=== PATIENT | male | born 1945 | race Caucasian/White ===

== ENCOUNTER 2022-12-09 15:00 | Outpatient (RCR) | payer MEDICARE, OTHER, SELFPAY ==
[2022-11-25 09:18] VITALS: BP 135/77; PULSE 69; RESP 16; TEMP 36.2; O2SAT 96
--- NOTE | 2022-11-25 09:35 | PC.NURSE ---
0918: Pt. to [facility] amb. per self. Weight obtained, called to pharmacy. Pt. seated in recliner. VSS. Denies c/o pain, n/v or dyspnea. #22 gauge IV initiated to right forearm on first attempt without difficulty. Flushes easily without redness or edema. Pt. tolerated without c/o.
--- NOTE | 2022-11-25 10:21 | PC.NURSE ---
0948: IV Prolastin initiated at this time. Pt. without c/o or needs. 1015: Prolastin infusion complete wihthout s&s of adverse reaction. IV d/c'd, pressure to site. 1018: Pt. d/c'd amb. to home.
[2022-12-02 14:53] VITALS: BP 128/76; PULSE 68; RESP 18; TEMP 36.1; O2SAT 96
--- NOTE | 2022-12-02 15:09 | PC.NURSE ---
Patient is here for Prolastin infusion, he is tolerating this well. He denies any issues or concerns.
[2022-12-09 14:30] VITALS: BP 122/68; PULSE 66; RESP 20; TEMP 36.6; O2SAT 93
--- NOTE | 2022-12-09 15:19 | PC.NURSE ---
1430: Pt. to [facility] amb. per self. Weight obtained, called to pharmacy. Seated in recliner. VSS. #22 guage IV initiated to right hand on first attempt without difficulty. Flushes easily. Pt. tolerates without c/o. 1444: IV Prolastin infusion initiated at this time. Pt. denies needs. 1507: Infusion complete. Pt. without s&s of adverse reaction. IV d/c'd, pressure to site. Pt. denies c/o. 1509: Pt. d/c'd amb to home.
== END 2022-12-11 23:59 | disposition home or self-care (01) ==
LOC: INF 15:00
PROVIDERS: Visit Provider Internal Medicine
DX: J43.8 Other emphysema (principal); E88.01 Alpha-1-antitrypsin deficiency
CPT/HCPCS: 96365; J0256

== ENCOUNTER 2023-01-06 15:00 | Outpatient (RCR) | payer MEDICARE, OTHER, SELFPAY ==
[2022-12-16 14:40] VITALS: BP 127/72; PULSE 68; RESP 18; TEMP 36.6; O2SAT 97
[2022-12-23 14:48] VITALS: BP 123/77; PULSE 71; RESP 20; TEMP 36.3; O2SAT 96
--- NOTE | 2022-12-23 15:58 | PC.NURSE ---
1448: Pt. to [facility] amb. per self. Weight obtained, called to pharmacy. Seated in recliner. VSS. IV initiated without difficulty to right arm without difficulty. Flushes easily without redness or edema. Pt. denies c/o. Medicated with IV Prolastin infusion as ordered. 1549: Prolastin infusion completed without s&s of adverse reaction IV d/c'd, pressure to site. 1550: Pt. d/c'd to home amb.
[2022-12-30 14:55] VITALS: BP 124/72; PULSE 63; RESP 18; TEMP 36.6; O2SAT 96
--- NOTE | 2022-12-30 15:25 | PC.NURSE ---
1455: Pt. to [facility] amb. per self. Wt. obtained, called to pharmacy. Seated in recliner. VSS. Denies c/o. #22 gauge IV initiated to left hand on first attempt without difficulty. Flushes easily. No redness or edema. Pt. tolerated without c/o.
--- NOTE | 2022-12-30 15:29 | PC.NURSE ---
1513: IV Prolastin initiated at this time. Pt. denies needs or c/o.
[2023-01-06 14:43] VITALS: BP 147/75; PULSE 70; RESP 20; TEMP 36.8; O2SAT 93
== END 2023-01-11 23:59 | disposition home or self-care (01) ==
LOC: INF 15:00
PROVIDERS: Visit Provider Internal Medicine
DX: E88.01 Alpha-1-antitrypsin deficiency (principal); J43.8 Other emphysema
CPT/HCPCS: 96365; 96366; J0256

== ENCOUNTER 2023-02-10 15:00 | Outpatient (RCR) | payer MEDICARE, OTHER, SELFPAY ==
[2023-01-13 14:43] VITALS: BP 158/77; PULSE 76; RESP 18; TEMP 36.2; O2SAT 95
--- NOTE | 2023-01-13 14:58 | PC.NURSE ---
Pt. to [facility] amb. per self. Wt. obtained. Called to pharmacy. VSS. IV initiated without difficulty. Tolerated w/o c/o.
--- NOTE | 2023-01-13 15:05 | PC.NURSE ---
IV Prolastin initiated at this time. Pt. denies needs.
--- NOTE | 2023-01-13 15:29 | PC.NURSE ---
Prolastin completed at this time. IV d/c'd pressure to site. Pt. without s&s of adverse reaction. D/c'd to home amb.
[2023-01-20 14:45] VITALS: BP 158/75; PULSE 67; RESP 18; TEMP 36.4; O2SAT 94
--- NOTE | 2023-01-20 14:45 | PC.NURSE ---
1445: Pt. to [facility] amb. per self. Weight obtained, called to pharmacy. Seated in recliner. VSS. #22 gauge IV initiated to right forearm on first attempt. Flushes easily. Pt. denies c/o. IV Prolastin initiated at this time. 1531: Prolastin infusion completed at this time. Pt. without s&s of adverse reaction. IV d/c'd, pressure to site. D/c'd amb. to home.
[2023-01-27 13:50] VITALS: BP 100/60; PULSE 54; RESP 18; TEMP 36.4; O2SAT 100
--- NOTE | 2023-01-27 14:21 | PC.NURSE ---
1350 Ate 100% of meal, tolerating prbc's without difficulty. Family remain with patient
[2023-01-27 15:15] VITALS: BP 126/70; PULSE 68; RESP 16; TEMP 36.4; O2SAT 96
--- NOTE | 2023-01-27 15:17 | PC.NURSE ---
Arrived ambulatory to chair 1. alert oriented offers no concerns vs obtained #24 iv initiated rt wrist, tolerated. we.. 1515 iv infusion initiated.
--- NOTE | 2023-01-27 15:44 | PC.NURSE ---
1545 infusion completed flushed line with 20 ml of nss. iv site dc'd catheter intact. Released ambulatory.
[2023-02-03 14:40] VITALS: BP 154/81; PULSE 73; RESP 18; TEMP 36.4; O2SAT 94
[2023-02-10 14:46] VITALS: BP 150/76; PULSE 72; RESP 18; TEMP 37; O2SAT 93
== END 2023-02-11 23:59 | disposition home or self-care (01) ==
LOC: INF 15:00
PROVIDERS: Visit Provider Internal Medicine
DX: J43.8 Other emphysema (principal); E88.01 Alpha-1-antitrypsin deficiency
CPT/HCPCS: 96365; J0256

== ENCOUNTER 2023-03-10 07:30 | Outpatient (RCR) | payer MEDICARE, OTHER, SELFPAY ==
[2023-02-17 14:44] VITALS: BP 151/93; PULSE 69; RESP 18; TEMP 36.5; O2SAT 95
--- NOTE | 2023-02-17 15:22 | PC.NURSE ---
Patient is receiving Prolastin infusion and tolerating well. He denies any complaints.
--- NOTE | 2023-02-17 15:33 | PC.NURSE ---
Patient completed infusion, IV was discontinued and he was discharged home.
[2023-02-24 14:56] VITALS: BP 124/76; PULSE 66; RESP 16; TEMP 36.4; O2SAT 96
--- NOTE | 2023-02-24 15:35 | PC.NURSE ---
1535: IV Prolastin complete. Pt. without s&s of adverse reaction. IV d/c'd, pressure to site. Pt. tolerated without c/o.
--- NOTE | 2023-02-24 16:13 | PC.NURSE ---
1535 infusion complete. IV site dc'd, catheter intact. bandaid applied. Released ambulatory
[2023-03-03 14:45] VITALS: BP 139/80; PULSE 71; RESP 16; TEMP 36.2; O2SAT 94
--- NOTE | 2023-03-03 14:45 | PC.NURSE ---
1445: Pt. to [facility] amb. per self. Weight obtained, called to pharmacy. Seated in recliner. VSS. #22 gauge IV initiated to right forearm on first attempt without difficulty. Flushes easily without redness or edema. Pt. tolerated without c/o. Declines snack or fluids.
--- NOTE | 2023-03-03 15:02 | PC.NURSE ---
1502: IV Prolastin initiated at this time.
--- NOTE | 2023-03-03 15:39 | PC.NURSE ---
1537: IV Prolastin infused without s&s of adverse reaction IV d/c'd, pressure to site. 1539: Pt. d/c'd amb. to home.
[2023-03-10 01:30] VITALS: BP 148/80; PULSE 62; RESP 16; TEMP 36.4; O2SAT 96
== END 2023-03-13 23:59 | disposition home or self-care (01) ==
LOC: INF 07:30
PROVIDERS: Visit Provider Internal Medicine
DX: E88.01 Alpha-1-antitrypsin deficiency (principal); J43.8 Other emphysema
CPT/HCPCS: 96365; J0256

== ENCOUNTER 2023-04-07 07:31 | Outpatient (RCR) | payer MEDICARE, OTHER, SELFPAY ==
[2023-03-17 15:38] VITALS: BP 135/77; PULSE 69; RESP 18; TEMP 36.3; O2SAT 92
--- NOTE | 2023-03-17 15:50 | PC.NURSE ---
1443: Pt. to [facility] amb. per self. Weight obtained, called to pharmacy. Seated in recliner. VSS. Denies c/o. IV initiated on second attempt, pt. tolerated with no c/o. Declines snack or fluids. 1505: IV Prolastin initiated at this time. 1535: Prolastin completed without adverse reaction. IV d/c'd, pressure to site. 1538: Pt. d/c'd amb. to home.
[2023-03-24 14:36] VITALS: BP 137/79; PULSE 70; RESP 18; TEMP 36.4; O2SAT 95
[2023-03-24] MEDS: PROTEINASE INHIBITOR IV (15:06)
[2023-03-24] MEDS: ALPHA IV (15:06)
--- NOTE | 2023-03-24 15:40 | PC.NURSE ---
Patient tolerated infusion well. No reactions. Ambulatory on discharge.
[2023-03-31 14:47] VITALS: BP 144/79; PULSE 80; RESP 18; TEMP 36.4; O2SAT 98
--- NOTE | 2023-03-31 15:28 | PC.NURSE ---
1447: Pt. to [facility] amb. per self. Weight obtained, called to pharmacy. Pt. seated in recliner. VSS. IV initiated, pt. tolerated without c/o. IV Prolastin initiated at this time. Denies needs.
--- NOTE | 2023-03-31 15:40 | PC.NURSE ---
1540: Prolastin infused without s&s of adverse reaction. IV d/c'd, pressure to site. Pt. d/c'd amb. to home.
[2023-04-07 15:49] VITALS: BP 161/84; PULSE 69; RESP 16; TEMP 36.4; O2SAT 94
--- NOTE | 2023-04-07 15:52 | PC.NURSE ---
1453: Pt. to [facility] amb. for weekly infusion. Weight obtained, called to pharmacy. Seated in recliner. VSS. Iv initiated to left wrist on first attempt without difficulty. Flushes easily without redness or edema. Pt tolerates with no c/o. IV Prolastin initiated at this time. Pt. denies needs or c/o. 1547: IV Prolastin completed at this time. IV d/c'd, pressure to site. 1548: Pt. d/c'd amb. to home.
== END 2023-04-13 23:59 | disposition home or self-care (01) ==
LOC: INF 07:31
PROVIDERS: Visit Provider Internal Medicine
DX: J43.8 Other emphysema (principal); E88.01 Alpha-1-antitrypsin deficiency
CPT/HCPCS: 96365; J0256

== ENCOUNTER 2023-05-12 07:31 | Outpatient (RCR) | payer MEDICARE, OTHER, SELFPAY ==
[2023-04-14 14:45] VITALS: BP 144/79; PULSE 67; RESP 16; TEMP 36.1; O2SAT 95
--- NOTE | 2023-04-14 16:01 | PC.NURSE ---
1445: Pt to [facility] amb. per self. Weight obtained. Seated in recliner. VSS. IV initiated to left arm on first attempt without difficulty. Pt. tolerated without c/o. Denies needs or c/o. 1508: IV Prolastin initiated as ordered. Denies needs. 1538: IV Prolastin complete without s&s of adverse reaction. IV d/c'd, pressure to site. Pt. d/c'd amb to home.
[2023-04-21 14:43] VITALS: BP 140/83; PULSE 66; RESP 16; TEMP 36.6; O2SAT 96
[2023-04-21] MEDS: PROTEINASE INHIBITOR IV (14:45)
[2023-04-21] MEDS: ALPHA IV (14:45)
--- NOTE | 2023-04-21 14:49 | PC.NURSE ---
1430: Pt. to [facility] amb. Weight obtained. Seated in recliner. VSS. Denies c/o. #22 gauge IV initiated to right forearm on first attempt without difficulty. Flushes easily without redness or edema/ Pt. tolerates without c/o. 1445: IV Prolastin initiated as ordered. Pt. denies needs.
--- NOTE | 2023-04-21 15:24 | PC.NURSE ---
1520: Prolastin complete. Pt. without s&s of adverse reaction. IV d/c'd, pressure to site. Pt. d/c'd amb. to home.
[2023-04-28 14:58] VITALS: BP 148/84; PULSE 81; RESP 18; TEMP 36.6; O2SAT 96
[2023-04-28] MEDS: ALPHA IV (15:17)
[2023-04-28] MEDS: PROTEINASE INHIBITOR IV (15:17)
[2023-05-05 12:45] VITALS: BP 136/67; PULSE 59; RESP 16; TEMP 36.6; O2SAT 97
--- NOTE | 2023-05-05 14:26 | PC.NURSE ---
1340 iv infusion completed, iv dc'd catheter intact, raquel and armaan applied. Released ambulatory
[2023-05-12 14:40] VITALS: BP 151/78; PULSE 67; RESP 18; TEMP 36.4; O2SAT 99
== END 2023-05-13 23:59 | disposition home or self-care (01) ==
LOC: INF 07:31
PROVIDERS: Visit Provider Internal Medicine
DX: J43.8 Other emphysema (principal); E88.01 Alpha-1-antitrypsin deficiency
CPT/HCPCS: 96365; J0256

== ENCOUNTER 2023-06-09 07:42 | Outpatient (RCR) | payer MEDICARE, OTHER, SELFPAY ==
[2023-05-19 14:40] VITALS: BP 151/79; PULSE 68; RESP 18; TEMP 35.9; O2SAT 95
--- NOTE | 2023-05-19 14:42 | PC.NURSE ---
1410: Pt. to [facility] amb. for weekly infusion. Weight obtained, called to pharmacy. Seated in recliner. #24 gauge IV inserted to left forearm per this RN without difficulty. Flushes easily without edema or pt. c/o pain. 1426: IV Prolastin initiated at this time. Pt. denies needs or c/o.
--- NOTE | 2023-05-19 14:57 | PC.NURSE ---
1456: IV Prolastin completed. Pt. without c/o. IV d/c'd, pressure to site. 1458: Pt. d/c'd amb. to home.
[2023-05-26 14:23] VITALS: BP 132/55; PULSE 74; RESP 18; TEMP 36.3; O2SAT 93
[2023-06-02 13:10] VITALS: BP 161/85; PULSE 73; RESP 18; TEMP 36.8; O2SAT 94
[2023-06-09 13:50] VITALS: BP 129/74; PULSE 61; RESP 18; TEMP 36.4; O2SAT 95
== END 2023-06-09 14:46 | disposition home or self-care (01) ==
LOC: INF 07:42
PROVIDERS: Visit Provider Internal Medicine
DX: J43.8 Other emphysema (principal); E88.01 Alpha-1-antitrypsin deficiency
CPT/HCPCS: 96365; J0256

== ENCOUNTER 2023-07-14 07:27 | Outpatient (RCR) | payer MEDICARE, OTHER, SELFPAY ==
[2023-06-16 14:32] VITALS: BP 151/81; PULSE 65; RESP 18; TEMP 36.6; O2SAT 98
--- NOTE | 2023-06-16 14:35 | PC.NURSE ---
8810 Arrival ambulatory to chair 2. alert oriented. offers no complaints. #24 IV catheter inserted leforearm on 1st attempt, tolerated well.
[2023-06-23 14:22] VITALS: BP 153/85; PULSE 78; RESP 16; TEMP 36; O2SAT 96
--- NOTE | 2023-06-23 14:23 | PC.NURSE ---
1415: Pt. to [facility] amb for weekly infusion. Weight obtained, called to pharmacy. Seated in recliner. VSS. #22 gauge IV initiated to left forearm on first attempt without difficulty. Flushes easily without redness or edema. Declines snack or water.
--- NOTE | 2023-06-23 14:36 | PC.NURSE ---
1428: IV Prolastin initiated at this time.
--- NOTE | 2023-06-23 15:05 | PC.NURSE ---
1502: Prolastin infusion completed. Pt. tolerated without c/o. IV d/c'd pressure too site. Pt. tolerated without c/o.Pt. d/c'd amb. to home.
[2023-06-30 13:51] VITALS: BP 156/83; PULSE 64; RESP 16; TEMP 36.6; O2SAT 96
--- NOTE | 2023-06-30 13:53 | PC.NURSE ---
1345: Pt. to [facility] amb for weekly infusion. Weight obtained. VSS. #22 gauge IV initiated to right ac on second attempt. Flushes easily without redness or edema. Denies c/o pain, n/v or dyspnea.
[2023-06-30] MEDS: PROTEINASE INHIBITOR IV (13:56)
[2023-06-30] MEDS: ALPHA IV (13:56)
--- NOTE | 2023-06-30 14:26 | PC.NURSE ---
1425: IV Prolastin completed. Pt. without s&s of adverse reaction. IV d/c'd, pressure to site. 1426: Pt. d/c'd amb to home.
[2023-07-07 14:01] VITALS: BP 155/92; PULSE 68; RESP 16; TEMP 36.1; O2SAT 95
[2023-07-07] MEDS: ALPHA IV (14:03)
[2023-07-07] MEDS: PROTEINASE INHIBITOR IV (14:03)
--- NOTE | 2023-07-07 14:09 | PC.NURSE ---
1350: Pt. to [facility] amb. for weekly infusion. Weight obtained, called to pharmacy. Seated in recliner. VSS. Denies c/o pain, dyspnea or n/v. #22 gauge IV initiated to left forearm on first attempt without difficulty. Pt. tolerated without c/o. Flushes easily with no edema.
--- NOTE | 2023-07-07 14:12 | PC.NURSE ---
1403: IV Prolastin initiated at this time. Pt. denies needs or c/o.
--- NOTE | 2023-07-07 14:40 | PC.NURSE ---
1437: Infusion completed. Pt. tolerated without s&s of adverse reaction. IV d/c'd, pressure to site. Pt. d/c'd amb. to home.
[2023-07-14] MEDS: PROTEINASE INHIBITOR IV (14:28)
[2023-07-14] MEDS: ALPHA IV (14:28)
[2023-07-14 14:39] VITALS: BP 144/80; PULSE 71; RESP 18; TEMP 36.3; O2SAT 96
--- NOTE | 2023-07-14 14:42 | PC.NURSE ---
1415: Pt. to [facility] amb. for weekly infusion. Weight obtained. Seated in recliner. VSS. #22 gauge IV initiated to right forearm on first attempt without difficulty. Flushes easily without redness or edema. Pt. tolerates without c/o. IV Prolastin initiated at this time. Pt. denies needs.
--- NOTE | 2023-07-14 15:37 | PC.NURSE ---
1500 infusion completed, tolerated well, flushed with nss, IV dc'd catheter intact. cottonball applied and secured with coban. Released ambulatory
== END 2023-07-14 23:59 | disposition home or self-care (01) ==
LOC: INF 07:27
PROVIDERS: Visit Provider Internal Medicine
DX: E88.01 Alpha-1-antitrypsin deficiency (principal); J43.8 Other emphysema
CPT/HCPCS: 96360; 96365; J0256

== ENCOUNTER 2023-08-11 07:24 | Outpatient (RCR) | payer MEDICARE, OTHER, SELFPAY ==
[2023-07-21] MEDS: PROTEINASE INHIBITOR IV (14:17)
[2023-07-21] MEDS: ALPHA IV (14:17)
[2023-07-21 14:22] VITALS: BP 125/70; PULSE 68; RESP 18; TEMP 35; O2SAT 18
--- NOTE | 2023-07-21 14:24 | PC.NURSE ---
1320 Arrival ambulatory to chair 1. Alert oriented, no complaints offered. IV initiated left arm with #24 on 1st attempt, tolerated well.
[2023-07-28] MEDS: PROTEINASE INHIBITOR IV (14:41)
[2023-07-28] MEDS: ALPHA IV (14:41)
[2023-07-28 14:46] VITALS: BP 147/92; PULSE 94; RESP 18; TEMP 36.9; O2SAT 94
--- NOTE | 2023-07-28 14:48 | PC.NURSE ---
1420 Arrival ambulatory for prolastin infusion. alert oriented, offers no complaints. 1425 VS obtained. #24 IV initiated left forarm. 1440 prolastin c initiated as ordered.
[2023-08-04 14:10] VITALS: BP 144/76; PULSE 74; RESP 18; TEMP 36.3; O2SAT 96
--- NOTE | 2023-08-04 14:15 | PC.NURSE ---
1400 Arrival ambulatory to chair 1, alert oriented. offers no complaints. IV #24 initiated rt arm per Jemma Zhao RN, patient tolerated well.
[2023-08-04] MEDS: ALPHA IV (14:30)
[2023-08-04] MEDS: PROTEINASE INHIBITOR IV (14:30)
[2023-08-11 13:35] VITALS: BP 143/82; PULSE 67; RESP 18; O2SAT 96
[2023-08-11] MEDS: ALPHA IV (13:55)
[2023-08-11] MEDS: PROTEINASE INHIBITOR IV (13:55)
--- NOTE | 2023-08-11 14:19 | PC.NURSE ---
Patient is here for Prolastin, he denies any concerns. IV started in his right forearm with blood return. He is tolerating prolastin well without any issues or concerns.
== END 2023-08-11 14:29 | disposition home or self-care (01) ==
LOC: INF 07:24
PROVIDERS: Visit Provider Internal Medicine
DX: J43.8 Other emphysema (principal); E88.01 Alpha-1-antitrypsin deficiency
CPT/HCPCS: 96365; 99211; J0256

== ENCOUNTER 2023-09-08 07:33 | Outpatient (RCR) | payer MEDICARE, OTHER, SELFPAY ==
[2023-08-18 13:45] VITALS: BP 155/68; PULSE 70; RESP 16; TEMP 36.4; O2SAT 95
--- NOTE | 2023-08-18 13:48 | PC.NURSE ---
1335: Pt. to [facility] amb. Weight obtained. Seated in recliner. VSS. #22 gauge IV initiated to left forearm on second attempt. Flushes easily without c/o edema.
[2023-08-18] MEDS: PROTEINASE INHIBITOR IV (13:59)
[2023-08-18] MEDS: ALPHA IV (13:59)
--- NOTE | 2023-08-18 14:00 | PC.NURSE ---
1359: IV Prolastin infusion initiated at this time. Pt without c/o or needs.
--- NOTE | 2023-08-18 14:37 | PC.NURSE ---
1435: Prolastin infusion completed without s&s of adverse reaction. IV d/c'd, pressure to site. Pt. d/c'd amb to home.
[2023-08-25 09:35] VITALS: BP 95/54; PULSE 64; RESP 16; TEMP 36.2; O2SAT 100
--- NOTE | 2023-08-25 09:49 | PC.NURSE ---
0935: Tolerating infusion without s&s of adverse reaction. VSS. Denies needs or c/o.
[2023-08-25 14:43] VITALS: BP 131/76; PULSE 73; RESP 18; TEMP 36.2; O2SAT 94
[2023-08-25] MEDS: ALPHA IV (14:47)
[2023-08-25] MEDS: PROTEINASE INHIBITOR IV (14:47)
--- NOTE | 2023-08-25 14:54 | PC.NURSE ---
1435 Arrival ambulatory, alert oriented. offers no complaints. weight called to pharmacy. 1445 #24 iv initiated rt forearm, excellent blood return, patient tolerated well.
[2023-09-01 14:14] VITALS: BP 143/65; PULSE 70; RESP 18; TEMP 36.3; O2SAT 96
[2023-09-01] MEDS: PROTEINASE INHIBITOR IV (14:15)
[2023-09-01] MEDS: ALPHA IV (14:15)
--- NOTE | 2023-09-01 14:25 | PC.NURSE ---
1410 Arrival ambulatory, alert oriented. #24 iv initiated in left forearm, excellent blood return noted.
[2023-09-08 14:15] VITALS: BP 158/69; PULSE 67; RESP 18; TEMP 36; O2SAT 94
[2023-09-08] MEDS: PROTEINASE INHIBITOR IV (14:26)
[2023-09-08] MEDS: ALPHA IV (14:26)
--- NOTE | 2023-09-08 14:36 | PC.NURSE ---
1415 arrival ambulatory to chair 1, alert and oriented, offered refreshment. #24 IV initiated rt inner forearm on 1 attempt, excellent blood return, tolerated well. 1435 IV prolastin initiated as ordered.
== END 2023-09-12 23:59 | disposition home or self-care (01) ==
LOC: INF 07:33
PROVIDERS: Visit Provider Internal Medicine
DX: E88.01 Alpha-1-antitrypsin deficiency (principal); J43.8 Other emphysema
CPT/HCPCS: 96365; J0256

== ENCOUNTER 2023-10-04 19:33 | Observation (INO) | payer MEDICARE, OTHER, SELFPAY ==
[2023-10-04 19:39] VITALS: BP 180/100; PULSE 65; TEMP 36.5; O2SAT 98; BMI 34.5
--- OUTSIDE RECORDS SUMMARY | 2023-10-04 19:45 | XMS_ITS | CCD ---
Author Organization [facility] Care Team Providers Care Face Boss Name Role Phone Brunilda Ly DO Primary Care Provider [phone] SAMSA ., ANA Attending Unavailable SAMSA ., ANA Admitting Unavailable SAMSA ., ANA Consulting Unavailable MISC, DR ENCARNACION Primary Care Unavailable SAMSA ., ANA Attending Unavailable SAMSA ., ANA Admitting Unavailable SAMSA ., ANA Consulting Unavailable MISC, DR ENCARNACION Primary Care Unavailable SAMSA ., ANA Consulting Unavailable SAMSA ., ANA Attending Unavailable SAMSA ., ANA Admitting Unavailable MISHernan, DR ENCARNACION Primary Care Unavailable SAMSA ., ANA Consulting Unavailable SAMSA ., ANA Attending Unavailable SAMSA ., ANA Admitting Unavailable MISHernan, DR ENCARNACION Primary Care Unavailable SAMSA ., ANA Consulting Unavailable SAMSA ., ANA Attending Unavailable SAMSA ., ANA Admitting Unavailable DAVID, DR ENCARNACION Primary Care Unavailable SAMSA ., ANA Consulting Unavailable SAMSA ., ANA Attending Unavailable DAVID, DR ENCARNACION Primary Care Unavailable SAMSA ., ANA Admitting Unavailable SAMSA ., ANA Consulting Unavailable DAVID, DR ENCARNACION Primary Care Unavailable SAMSA ., ANA Admitting Unavailable SAMSA ., ANA Attending Unavailable DAVID, DR ENCARNACION Primary Care Unavailable DR ANDRE ORELLANA Consulting Unavailable DR ANDRE ORELLANA Attending Unavailable DR ANDRE ORELLANA Admitting Unavailable SAMSA ., ANA Consulting Unavailable DAVID, DR ENCARNACION Primary Care Unavailable SAMSA ., ANA Admitting Unavailable SAMSA ., ANA Attending Unavailable SAMSA ., ANA Consulting Unavailable DAVID, DR ENCARNACION Primary Care Unavailable SAMSA ., ANA Admitting Unavailable SAMSA ., ANA Attending Unavailable SAMSA ., ANA Attending Unavailable SAMSA ., ANA Consulting Unavailable DAVID, DR ENCARNACION Primary Care Unavailable SAMSA ., ANA Admitting Unavailable SAMSA ., ANA Attending Unavailable SAMSA ., ANA Admitting Unavailable ABDULLAHI . ANA Consulting Unavailable DR ALYSHA HERNANDEZ Primary Care Unavailable Brunilda Ly DO Primary Care Provider Mak Hubbard Primary Care Physician SRINIVASAN RAHMAN Attending Unavailable MINGO, BRUNILDA Primary Care Unavailable MINGO, BRUNILDA Referring Unavailable SRINIVASAN RAHMAN Admitting Unavailable MINGO, BRUNILDA Primary Care Unavailable SRINIVASAN RAHMAN Admitting Unavailable SRINIVASAN RAHMAN Attending Unavailable Mak Hubbard Attending Unavailable Mak Hubbard Attending Unavailable Mak Hubbard Attending Unavailable Andre ORELLANA Attending Unavailable Mak Hubbard Attending Unavailable Mak Hubbard Admitting Unavailable Allergies Allergy Classification Reported Allergen(s) Allergy Type Date of Onset Reaction(s) Facility (3 sources) [facility] Penicillins; Translations: [penicillins] Propensity to adverse reactions to drug 5 Cutaneous eruption (morphologic abnormality) [facility] [employer] Phone: (3 sources) Sulfonamides (Antibiotic) Propensity to adverse reactions to drug 2 [employer] Phone: (3 sources) oxyCODONE; Translations: [oxycodone] Drug Allergy [facility] (1 source) Codeine Drug Allergy 5 [facility] (2 sources) Sulfonamides (Antibiotic); Translations: [sulfa drugs] Propensity to adverse reactions to drug [facility] [place] Medications Current Medications Medication Drug Class(es) Dates Sig (Normalized) Sig (Original) ProAir HFA (2 sources) beta2-Adrenergic Agonist Start: 05-04-2017 take 1 puff(s) by inhalation once daily ProAir HFA 1 puff(s), Inhalation, Daily, Refill(s) 0 Start Date: 05/04/17 Status: Ordered aspirin 81 mg oral capsule (5 sources) Platelet Aggregation Inhibitor, Nonsteroidal Anti-inflammatory Drug Start: 04-18-2021 take 1 capsule by mouth every four hours aspirin 81 mg oral capsule 81 mg = 1 cap(s), Oral, q4hr Start Date: 04/18/21 Status: Ordered take 1 tablet by mouth once wilfredo y aspirin 81 MG EC tablet Take 1 tablet by mouth daily 0 Active Breztri Aerosphere (1 source) Start: 07-06-2023 Breztri Aerosphere Refill(s) 0 Start Date: 07/06/23 Status: Ordered 120 actuat budesonide 0.16 mg/actuat / formoterol fumarate 0.0048 mg/actuat / glycopyrrolate 0.009 mg/actuat metered dose inhaler (3 sources) Corticosteroid, beta2-Adrenergic Agonist take 2 puff(s) by inhalation at bedtime Budeson-Glycopyrr ol-Formoterol (BREZTRI AEROSPHERE) 160-9-4.8 MCG/ACT AERO Inhale 2 puffs into the lungs in the morning and at bedtime 0 Active Restasis (1 source) Calcineurin Inhibitor Immunosuppressant Start: 12-22-2018 take 1 drop(s) into the eye(s) every twelve hours Restasis drop(s), Eye-Both, q12hr, Refill(s) 0 Start Date: 12/22/18 Status: Ordered infusion once a week, protein supplement for lungs (2 sources) Start: 04-18-2021 infusion once a week, protein supplement for lungs infusion once a week, protein supplement for lungs Start Date: 04/18/21 Status: Ordered levothyroxine sodium 0.025 mg oral tablet (5 sources) l-Thyroxine Start: 07-06-2023 take 1 tablet by mouth once daily in the morning levothyroxine 25 mcg (0.025 mg) Tab 25 mcg = 1 tab(s), Oral, qAM, # 90 tab(s), Refills(s) 0, Pharmacy: [id number], 173, cm, 07/06/23 13:18:00 EST, Height/Length Dosing, 99.5, kg, 07/06/23 13:18:00 EST, Weight Dosing Start Date: 07/06/23 Status: Ordered Start: 05-04-2017 take 1 tablet by alejo th once daily in the morning levothyroxine 25 mcg (0.025 mg) Tab 25 microgram = 1 tab(s), Oral, qAM, # 30 tab(s), Refills(s) 0 Start Date: 05/04/17 Status: Ordered take 1 tablet by alejo th once daily levothyroxine (SYNTHROID) 125 MCG tablet Take 1 tablet by mouth Daily 0 Active Multi Vitamin+ (2 sources) Start: 12-22-2018 Multi Vitamin+ Refill(s) 0 Start Date: 12/22/18 Status: Ordered NONFORMULARY (3 sources) NONFORMULARY Inf use intravenously once a week PROTEIN INFUSION SUPPLEMENT 0 Active NONFORMULARY Inf use intravenously once a week PROTEIN INFUSION SUPPLEMENT 0 Suspended Completed/Discontinued Medications Medication Drug Class(es) Dates Sig (Normalized) Sig (Original) acetaminophen 325 mg oral tablet (1 source) Start: 07-08-2023 End: 07-08-2023 acetaminophen (TYLENOL) tablet 650 mg calcium chloride 0.0014 meq/ml / potassium chloride 0.004 meq/ml / sodium chloride 0.103 meq/ml / sodium lactate 0.028 meq/ml injectable solution (1 source) Start: 07-08-2023 End: 07-08-2023 lactated ringers IV soln infusion 50 ml clindamycin 18 mg/ml injection (1 source) Lincosamide Antibacterial Start: 07-08-2023 End: 07-08-2023 clindamycin (CLEOCIN) 900 mg in dextrose 5 % 50 mL IVPB Problems Problem Classification Problem Date Documented Date Episodic/Chronic Cancer of prostate (7 sources) Personal history of malignant neoplasm of prostate; Translations: [History of malignant neoplasm of prostate] Onset: 04-14-2022 Episodic Cancer of thyroid (2 sources) 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 Chronic obstructive pulmonary disease and bronchiectasis (7 sources) Other emphysema; Translations: [Centrilobular emphysema] Onset: 04-08-2022 Chronic Genitourinary symptoms and ill-defined conditions (3 sources) Stress incontinence (female) (male); Translations: [Genuine stress incontinence] Onset: 04-17-2022 Chronic Genitourinary symptoms and ill-defined conditions (3 sources) Nocturia; Translations: [Nocturia] Onset: 04-17-2022 Episodic Other circulatory disease (1 source) Elevated blood-pressure reading without diagnosis of hypertension 07-06-2023 Episodic Other connective tissue disease (1 source) Pain in toe 07-06-2023 Episodic Other male genital disorders (2 sources) 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 Other nutritional; endocrine; and metabolic disorders (5 sources) Cfzqz-7-koqwjfpzlgt deficiency; Translations: [IBSGX-6-[id number] DEFICIENCY] Onset: 09-09-2022 Chronic Other skin disorders (1 source) Mass of skin of toe of left foot; Translations: [Localized swelling, mass and lump, left lower limb] 07-08-2023 Episodic Other skin disorders (1 source) Localized swelling, mass and lump, left lower limb; Translations: [Localized swelling, mass and lump, left lower limb] Onset: 07-08-2023 Episodic Thyroid disorders (3 sources) Hypothyroidism 12-22-2018 Chronic Results Test Name Value Interpretation Reference Range Facility Patient Educationon 10-01-19 Patient Education Pulmonary Medicine Chronic Obstructive Pulmonary Disease Chronic obstructive pulmonary disease (COPD) is a long-term (chronic) condition that affects the lungs. COPD is a general term that can be used to describe many different lung problems that cause lung inflammation and limit airflow, including chronic bronchitis and emphysema. If you have COPD, your lung function will probably never return to normal. In most cases, it gets worse over time. However, there are steps you can take to slow the progression of the disease and improve your quality of life. What are the causes? This condition may be caused by: ? Smoking. This is the most common cause. ? Certain genes passed down through families. What increases the risk? The following factors may make you more likely to develop this condition: ? Being exposed to secondhand smoke from cigarettes, pipes, or cigars. ? Being exposed to chemicals and other irritants, such as fumes and dust in the work environment. ? Having chronic lung conditions or infections. What are the signs or symptoms? Symptoms of this condition include: ? Shortness of breath, especially during physical activity. ? Chronic cough with a large amount of thick mucus. Sometimes, the cough may not have any mucus (dry cough). ? Wheezing and rapid breathing. ? Gutiérrez or bluish discoloration (cyanosis) of the skin, especially in the fingers, toes, or lips. ? Feeling tired (fatigue). ? Weight loss. ? Chest tightness. ? Frequent infections. ? Episodes when breathing symptoms become much worse (exacerbations). At the later stages of this disease, you may have swelling in the ankles, feet, or legs. How is this diagnosed? This condition is diagnosed based on: ? Your medical history. ? A physical exam. You may also have tests, including: ? Lung (pulmonary) function tests. This may include a spirometry test, which measures your ability to exhale properly. ? Chest X-ray. ? CT scan. ? Blood tests. How is this treated? This condition may be treated with: ? Medicines. These may include inhaled rescue medicines to treat acute exacerbations as well as medicines that you take long-term (maintenance medicines) to prevent flare-ups of COPD. ? Bronchodilators help treat COPD by dilating the airways to allow increased airflow and make your breathing more comfortable. ? Steroids can reduce airway inflammation and help prevent exacerbations. ? Smoking cessation. If you smoke, your health care provider may ask you to quit, and may also recommend therapy or replacement products to help you quit. ? Pulmonary rehabilitation. This may involve working with a team of health care providers and specialists, such as respiratory, occupational, and physical therapists. ? Exercise and physical activity. These are beneficial for nearly all people with COPD. ? Nutrition therapy to gain weight, if you are underweight. ? Oxygen. Supplemental oxygen therapy is only helpful if you have a low oxygen level in your blood (hypoxemia). ? Lung surgery or transplant. ? Palliative care. This is to help people with COPD feel comfortable when treatment is no longer working. Follow these instructions at home: Medicines ? Take ecsh-yvq-clvtxte and prescription medicines only as told by your health care provider. This includes inhaled medicines and pills. ? Talk to your health care provider before taking any cough or allergy medicines. You may need to avoid certain medicines that dry out your airways. Lifestyle ? If you smoke, the most important thing that you can do is to stop smoking. Continuing to smoke will cause the disease to progress faster. ? Do not use any products that contain nicotine or tobacco. These products include cigarettes, chewing tobacco, and vaping devices, such as e-cigarettes. If you need help quitting, ask your health care provider. ? Avoid exposure to things that irritate your lungs, such as smoke, chemicals, and fumes. ? Stay active, but balance activity with periods of rest. Exercise and physical activity will help you maintain your ability to do things you want to do. ? Learn and use relaxation techniques to manage stress and to control your breathing. ? Get the right amount of sleep and get quality sleep. Most adults need 7 or more hours per night. ? Eat healthy foods. Eating smaller, more frequent meals and resting before meals may help you maintain your strength. Controlled breathing Learn and use controlled breathing techniques as directed by your health care provider. Controlled breathing techniques include: ? Pursed lip breathing. Start by breathing in (inhaling) through your nose for 1 second. Then, purse your lips as if you were going to whistle and breathe out (exhale) through the pursed lips for 2 seconds. ? Diaphragmatic breathing. Start by putting one hand on your abdomen just above your waist. Inhale slowly through you (more content not included)... Normal [facility] OPERATIVE REPORTon OPERATIVE REPORT [address] [address] OPERATIVE REPORT PATIENT NAME: RUBI FLORES : 1945 MED REC NO: [id number] ROOM: ACCOUNT NO: [id number] ADMIT DATE: 07/08/2023 PROVIDER: Srinivasan Rahman DPM DATE OF PROCEDURE: 07/08/2023 SURGEON: Srinivasan Rahman DPM. TRAFFIC ADMINISTRATOR: Gabby. PREOPERATIVE DIAGNOSIS: Left foot fifth digit painful skin lesion with digital rotation. POSTOPERATIVE DIAGNOSIS: Left foot fifth digit painful skin lesion with digital rotation. PROCEDURE PERFORMED: Derotational skin plasty/arthroplasty, fifth digit, left. ANESTHESIA: MAC. HEMOSTASIS: Anatomical. OBJECTIVE: As follows: The patient was prophylaxed with 2 gm of Ancef preoperatively. The patient was taken to the operating room and placed in the dorsal recumbent position. Attention directed to the left foot fifth digit, where approximately 6 mL of 50:50 mixture of 2% lidocaine with epinephrine and 0.5% Marcaine plain was infiltrated in H block. Foot was then prepped and draped sterilely. Now, attention directed to the left foot fifth digit distal aspect, where a fishmouth type incision was made over the distal aspect. Incision deepened through the subcutaneous tissues. Care taken to cut, clamp, and Bovie all incisional blood vessels. what appeared fusion of the distal interphalangeal joint, therefore, elected to dissect further proximal to the PIPJ, where the digit was disarticulated in toto. The plantar distal flap was modified for proper closure. The area was copiously lavaged with gentamicin flush. Approximately 0.25 mL of Decadron infiltrated . The wound was then repaired with 4-0 nylon in a simple interrupted fashion. Dry sterile fluff compressive dressing was then applied. Estimated blood loss was less than 20 mL. The patient tolerated anesthesia and procedure well without complications and was transported to the recovery room with vital signs stable, afebrile, and in apparent satisfactory condition. Sponge, needle, and instrument counts were all correct. SRINIVASAN RAHMAN DPM [email or web address] Doc#: [id number] CC: [facility] Surgical Pathology Reporton 07-08-2023 Surgical Pathology Report (NOTE) Path Number: [id number] -- Diagnosis -- LEFT FIFTH TOE (DISTAL), AMPUTATION: - BENIGN BONE AND CARTILAGE WITH NONSPECIFIC REACTIVE FEATURES (CLINICAL HAMMERTOE). 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 - NEGATIVE FOR OSTEOMYELITIS AND MALIGNANCY. Andrew Norton M.D. Electronically Signed Out [facility]/07/09/2023 Clinical Information Pre-op Diagnosis: MASS OF SKIN OF TOE OF LEFT FOOT Operative Findings: DISTAL 5TH LEFT TOE Operation Performed: TOE HAMMER REPAIR DISTAL SYNES PROCEDURE 5TH DIGIT tm Source of Specimen A: DISTAL 5TH LEFT TOE Gross Description RUBI FLORES, DISTAL 5TH LEFT TOE Received in formalin is a 2.8 x 1.5 x 1.0 cm disarticulated digit with nail. No obvious discoloration is noted. There is a 0.2 cm area of slight granularity. The subjacent bone is unremarkable. Granular area on skin with margin perpendicular inked black and separate portion of bone from proximal end 1cs after decalcification. tm Concha Pandya/tb1: 4 Microscopic Description Microscopic examination performed. Processing Lab: [address] [address] Interpretation Performed at [address] [place] [address] SURGICAL PATHOLOGY CONSULTATION Patient Name: RUBI FLORES Med Rec: [id number] [facility] ANATOMIC PATHOLOGY [address] [place] [address]. [place], [place] [address] [facility] Ambulatory Visit Summaryon 0 07-06-2023 Ambulatory Visit Summary RUBI FLORES :1945 Visit Date:07/06/2023 Ambulatory Visit Instructions Your Diagnosis History of prostate cancer COPD without exacerbation Nocturia Stress incontinence Elevated BP without diagnosis of hypertension Toe pain, left Hypothyroid Your Care Team Attending Physician - Mak Hubbard MD Primary Care Physician - Mak Hubbard MD This Is Your Medications List levothyroxine (levothyroxine 25 mcg (0.025 mg) Tab) Contact prescribing physician if questions or concerns Non-Formulary Medication (infusion once a week, protein supplement for lungs) albuterol (ProAir HFA) aspirin (aspirin 81 mg oral capsule) budesonide/formotero l/glycopyrrolate (Breztri Aerosphere) multivitamin (Multi Vitamin+) Procedures Performed Robot assisted laparoscopic radical prostatectomy (02/26/2015), TRUS (transrectal ultrasound) guided cryoablation of prostate (12/06/2014), TURP - Transurethral resection of prostate (06/14/2001), Cataract, Complete thyroidectomy, Cystoscopy, Hydrocelectomy, Repair of incisional hernia. Discharge Vitals Heart Rate (Peripheral) 65 Respiratory Rate 14 Blood Pressure 154/108 Height 68 in Height 173 cm Weight 218.79 lb Weight 99.45 kg BMI 33.23 What to do next Scheduled Follow-Up Appointments Wednesday 9:30 AM EDT With: ESTEBAN MORALES, Andre Frazier Where: [facility] CBC w/ Auto Diffon 4 Basophil Absolute 0.0 E9/L Normal 0.0-0.2 [facility] Comment on above: Performed By: #### 1 [id number], [id number], [id number] #### [facility] [address] [place] [address] Basophils/100 WBC (Bld) 0.7 % Normal 0.0-2.0 [facility] Comment on above: Performed By: #### 1 [id number], [id number], [id number], [id number] #### [facility] [address] [place] [address] Eos Absolute 0.2 E9/L Normal 0.0-0.5 [facility] Comment on above: Performed By: #### 1 [id number], [id number], [id number], [id number] #### [facility] [address] [place] [address] Eosinophils/100 WBC (Bld) 3.1 % Normal 0.0-8.0 [facility] Comment on above: Performed By: #### 1 [id number], [id number], [id number], [id number] #### [facility] [address] [place] [address] Erythrocyte distribution width (RBC) [Ratio] 13.9 % Normal 10.9-14.2 [facility] Comment on above: Performed By: #### 1 [id number], [id number], [id number], [id number] #### [facility] [address] [place] [address] Hematocrit (Bld) [Volume fraction] 47.0 % Normal 37.7-49.0 [facility] Comment on above: Performed By: #### 1 [id number], 0735839, [id number], [id number] #### [facility] [address] [place] [address] Hemoglobin (Bld) [Mass/Vol] 15.5 g/dL Normal 13.5-17.5 [facility] Comment on above: Performed By: #### 1 [id number], 0437081, [id number], [id number] #### [facility] [address] [place] [address] Lymph Absolute 1.1 E9/L Normal 1.0-4.0 [facility] Comment on above: Performed By: #### 1 [id number], 0668073, [id number], [id number] #### [facility] [address] [place] [address] Lymphocytes/100 WBC (Bld) 17.4 % Normal 14.0-50.0 [facility] Comment on above: Performed By: #### 1 [id number], 2026457, 25886354, 9001014 #### [facility] [address] [place] [address] MCH (RBC) [Entitic mass] 30.7 pg Normal 27.0-34.0 [facility] Comment on above: Performed By: #### 1 [id number], 7269183, [id number], [id number] #### [facility] [address] [place], [place] [id number] MCHC (RBC) [Mass/Vol] 33.0 g/dL Normal 31.4-36.0 [facility] Comment on above: Performed By: #### 1 [id number], 4455128, 73546392, [id number] #### [facility] [address] [place] [address] MCV (RBC) [Entitic vol] 93.1 fL Normal 80.0-100.0 [facility] Comment on above: Performed By: #### 1 [id number], 5919023, [id number], [id number] #### [facility] [address] [place] [address] [place] Absolute 0.7 E9/L Normal 0.2-1.0 [facility] Comment on above: Performed By: #### 1 [id number], 3123502, 93698423, 3546008 #### [facility] [address] [place] [address] Monocytes/100 WBC (Bld) 10.5 % Normal 4.0-14.0 [facility] Comment on above: Performed By: #### 1 [id number], 7194149, 63165584, 5518364 #### [facility] [address] [place] [address] Neutro Absolute 4.3 E9/L Normal 2.0-7.5 [facility] Comment on above: Performed By: #### 1 [id number], 5870975, 76160425, [id number] #### [facility] [address] [place] [address] Neutro Auto 68.3 % Normal 36.0-75.0 [facility] Comment on above: Performed By: #### 1 [id number], 3965645, 07557858, 5522359 #### [facility] [address] [place] [address] Platelet 137.0 E9/L Low 150.0-500.0 [facility] Comment on above: Result Comment: Veri fied with slide review Performed By: #### 1 [id number], 9336341, 60004293, [id number] #### [facility] [address] [place] [address] Platelet mean volume (Bld) [Entitic vol] 10.3 fL Normal 6.4-10.8 [facility] Comment on above: Performed By: #### 1 [id number], 4560566, 34139154, 2440110 #### [facility] [address] [place] [address] RBC 5.1 E12/L Normal 4.3-5.9 [facility] Comment on above: Performed By: #### 1 1150593, 0273061, 41100830, 4128104 #### [facility] [address] [place] [address] WBC 6.3 E9/L Normal 4.0-11.0 [facility] Comment on above: Result Comment: Veri fied with slide review Performed By: #### 1 [id number], 8325513, [id number], [id number] #### [facility] [address] [place] [address] CHEMISTRYOrdered By: SYSTEM SYSTEM on 07-06-2023 Albumin [Mass/Vol] 4.2 g/dL Normal 3.3 - 5.0 gm/dL Remisol Chem Albumin/Globulin [Mass ratio] 2.1 {ratio} Normal 1.1 - 2.2 Remisol Chem Alk Phos 100 [iU]/d High 21 - 98 Int._Unit/L Remisol Chem ALT 25 [iU]/d Normal 6 - 46 Int._Unit/L Remisol Chem Anion gap [Moles/Vol] 10 mmol/L Normal 6 - 16 mEq/L R emisol Chem AST 22 [iU]/d Normal 5 - 43 Int._Unit/L Remisol Chem Bili Total 0.6 mg/dL Normal 0.0 - 1.1 mg/dL Remisol Chem Calcium [Mass/Vol] 9.3 mg/dL Normal 8.9 - 11. 1 mg/dL Remisol Chem Chloride [Moles/Vol] 105 mmol/L Normal 101 - 1 11 mmol/L Remisol Chem CO2 [Moles/Vol] 27 mmol/L Normal 21 - 31 mmol/L Remis ol Chem Creatinine [Mass/Vol] 0.8 mg/dL Normal 0.5 - 1.3 mg/dL Remisol Chem eGFR 89 mL/min/1.73 m2 Normal >=59mL/min /1.7 3 m2 Remisol Chem Globulin (S) [Mass/Vol] 2.0 g/dL Normal 1.4 - 4.0 gm/dL [facility] Chem Glucose [Mass/Vol] 96 mg/dL Normal 55 - 199 mg/dL Re misol Chem Potassium [Moles/Vol] 4.4 mmol/L Normal 3.5 - 5.3 mmol/L Remisol Chem Protein [Mass/Vol] 6.2 g/dL Normal 6.0 - 7.8 gm/dL Rem[facility] Chem Sodium [Moles/Vol] 138 mmol/L Normal 135 - 145 mmol/L Remisol Chem TSH Qn 0.82 m[IU]/L Normal 0.34 - 5.60 mcIU/mL Remisol Chem Urea nitrogen [Mass/Vol] 14 mg/dL Normal 5 - 21 mg/dL Remisol Chem Urea nitrogen/Creatinine [Mass ratio] 18 mg/mg Normal 10 - 20 Rem[facility] Chem CMPon 07-06-2023 Albumin [Mass/Vol] 4.2 g/dL Normal 3.3-5.0 [facility] Comment on above: Performed By: #### 1 [id number], [id number], [id number], [id number] #### [facility] [address] [place] [address] Albumin/Globulin [Mass ratio] 2.1 {ratio} Normal 1.1-2.2 [facility] Comment on above: Performed By: #### 1 [id number], 8372501, [id number], [id number] #### [facility] [address] [place] [address] Alk Phos 100 Int._Unit/L High 21-98 [facility] Comment on above: Performed By: #### 1 [id number], 2548101, [id number], 7658837 #### [facility] [address] [place] [address] ALT 25 Int._Unit/L Normal 6-46 [facility] Comment on above: Performed By: #### 1 [id number], [id number], [id number], 8240239 #### [facility] [address] [place] [address] Anion gap [Moles/Vol] 10 mmol/L Normal 6-16 [facility] Comment on above: Performed By: #### 1 [id number], 0932649, [id number], 8157626 #### [facility] [address] [place] [address] AST 22 Int._Unit/L Normal 5-43 [facility] Comment on above: Performed By: #### 1 [id number], 3509599, [id number], 0703097 #### [facility] [address] [place] [address] Bili Total 0.6 mg/dL Normal 0.0-1.1 [facility] Comment on above: Performed By: #### 1 9359592, 1364972, 58216846, 2557705 #### [facility] [address] [place] [address] BUN/Creat Ratio 18 No Units Normal 10-20 [facility] Comment on above: Performed By: #### 1 1499771, 9658887, 27152484, 4698157 #### [facility] [address] [place] [address] Calcium [Mass/Vol] 9.3 mg/dL Normal 8.9-11.1 [facility] Comment on above: Performed By: #### 1 1605745, 1016195, 61162466, 5078373 #### [facility] [address] [place] [address] Chloride [Moles/Vol] 105 mmol/L Normal 101-111 [facility] Comment on above: Performed By: #### 1 0910199, 1433062, 04401087, 7596688 #### [facility] [address] [place] [address] CO2 [Moles/Vol] 27 mmol/L Normal 21-31 [facility] Comment on above: Performed By: #### 1 2309428, 1390191, 55707510, 5629579 #### [facility] [address] [place] [address] Creatinine [Mass/Vol] 0.8 mg/dL Normal 0.5-1.3 [facility] Comment on above: Performed By: #### 1 7366232, 2507381, 89469064, 5368125 #### [facility] [address] [place] [address] Globulin (S) [Mass/Vol] 2.0 g/dL Normal 1.4-4.0 [facility] Comment on above: Performed By: #### 1 [id number], 5476166, 03487436, 6368639 #### [facility] [address] [place] [address] Glucose [Mass/Vol] 96 mg/dL Normal 55-199 [facility] Comment on above: Performed By: #### 1 [id number], 1358885, 70820034, 6610102 #### [facility] [address] [place] [address] Potassium [Moles/Vol] 4.4 mmol/L Normal 3.5-5.3 [facility] Comment on above: Performed By: #### 1 5397975, 1546546, 40158269, 1042392 #### [facility] [address] [place] [address] Protein [Mass/Vol] 6.2 g/dL Normal 6.0-7.8 [facility] Comment on above: Performed By: #### 1 0884031, 7695606, 45166633, 7021641 #### [facility] [address] [place] [address] Sodium [Moles/Vol] 138 mmol/L Normal 135-145 [facility] Comment on above: Performed By: #### 1 4659389, 2622572, 97082885, 8171536 #### [facility] [address] [place] [address] Urea nitrogen [Mass/Vol] 14 mg/dL Normal 5-21 [facility] Comment on above: Performed By: #### 1 1168742, 9135485, 89675273, 6061087 #### [facility] [address] [place] [address] Family Medicine Office/Clini c Noteon 07-06-2023 Family Medicine Office/Clinic Note Chief Complaint establish care HPI Staff Rubi is an 78 year old male presenting to re-establish care Establish Care: History:thyroid cancer, prostate cancer Any previous diagnosis: sees Dr. Orellana for prostate and Dr. Markham for COPD History of seeing any specialist: Dr Orellana and Dr. Markham When was your last doctors visit: awile Last provider: Dr. Albarran Any recent labs:no Health Maintenance UTD: Colonoscopy: no PSA: removed flu:, pneumonia, and tetanus 05/2023 Acute: Current issues/complaints: Patient wanted pcp to know that he is having his right little toe removed due to a bone spur. History of Present Illness Here to establish care with me today - No issues at this time - Need refill on levothyroxin. Review of Systems PHQ Score Initial Depression Screen Score: 0 SCORE Physical Exam Vitals & Measurements HR: 65(Peripheral) RR: 14 BP: 182/100 SpO2: 94% HT: 68 in HT: 173 cm WT: 99.45 kg WT: 218.79 lb BMI: 33.23 General: alert, no acute distress ENMT: oral mucosa moist, Cardiovascular: regular rate and rhythm, normal peripheral perfusion Respiratory: Lungs CTA, respirations non labored Extremities: no deformity, no trauma Neurological: oriented x 4, LOC appropriate for age, CN II-XII intact, motor strength equal & normal bilaterally, speech normal Abdomen: Soft, Nontender, Non-distended, + BS Assessment/Plan 1. History of prostate cancer (Z85.46: Personal history of malignant neoplasm of prostate) Sees Urology No issues. Ordered: CBC w/ Auto Diff Comprehensive Metabolic Panel TSH With T4fr Reflex 2. COPD without exacerbation (J44.9: Chronic obstructive pulmonary disease, unspecified) - Sees Dr. Fernando - Follow up as needed - Please get your records from [facility] Ordered: CBC w/ Auto Diff Comprehensive Metabolic Panel TSH With T4fr Reflex 3. Nocturia (R35.1: Nocturia) - Please see Urology Ordered: CBC w/ Auto Diff Comprehensive Metabolic Panel TSH With T4fr Reflex 4. Stress incontinence (N39.3: Stress incontinence (female) (male)) - As above Ordered: CBC w/ Auto Diff Comprehensive Metabolic Panel TSH With T4fr Reflex 5. Elevated BP without diagnosis of hypertension (R03.0: Elevated blood-pressure reading, without diagnosis of hypertension) - Will monitor. - Pt does not have any issues with HTN - Get his BP check every week. Ordered: CBC w/ Auto Diff Comprehensive Metabolic Panel TSH With T4fr Reflex 6. Toe pain, left (M79.675: Pain in left toe(s)) - Seeing Podiatry. Ordered: CBC w/ Auto Diff Comprehensive Metabolic Panel TSH With T4fr Reflex 7. Hypothyroid (E03.9: Hypothyroidism, unspecified) - TSH check today - Continue meds as before. Ordered: CBC w/ Auto Diff Comprehensive Metabolic Panel TSH With T4fr Reflex Orders: levothyroxine, 25 mcg = 1 tab(s), Oral, qAM, # 90 tab(s), Refills(s) 0, Pharmacy: [id number], 173, cm, 07/06/23 13:18:00 EST, Height/Length Dosing, 99.5, kg, 07/06/23 13:18:00 EST, Weight Dosing Follow-up No qualifying data available Problem List/Past Medical History Ongoing COPD without exacerbation Elevated BP without diagnosis of hypertension History of prostate cancer Hypothyroid Nocturia Stress incontinence Toe pain, left Historical Cancer of thyroid, Hurthle cell Hypothyroidism Impotence of organic origin Procedure/Surgical History Robot assisted laparoscopic radical prostatectomy (02/26/2015), TRUS (transrectal ultrasound) guided cryoablation of prostate (12/06/2014), TURP - Transurethral resection of prostate (06/14/2001), Cataract, Complete thyroidectomy, Cystoscopy, Hydrocelectomy, Repair of incisional hernia. Medications aspirin 81 mg oral capsule, 81 mg= 1 cap(s), Oral, q4hr Breztri Aerosphere infusion once a week, protein supplement for lungs levothyroxine 25 mcg (0.025 mg) Tab, 25 mcg= 1 tab(s), Oral, qAM Multi Vitamin+ ProAir HFA, 1 puff(s), Inhalation, Daily Allergies oxyCODONE (Dizziness) penicillins (Rash) sulfa drugs Social History Alcohol - Denies Alcohol Use, 12/22/2018 Tobacco Never (less than 100 in lifetime) Tobacco Use:. Never Smokeless Tobacco Use:., 07/06/2023 Immunizations Vaccine Date Status Comments influenza virus vaccine, inactivated 04/09/2023 Recorded diphtheria/pertussis , acel/tetanus adult 03/26/2023 Recorded pneumococcal 20-valent conjugate vaccine 03/26/2023 Recorded SARS-CoV-2 mRNA (tozinameran 5y-11y) vac - Not Given Postpone due to refusal influenza virus vaccine, inactivated 05/26/2019 Recorded pneumococcal 13-valent vaccine 03/14/2018 Recorded influenza virus vaccine, inactivated 03/14/2018 Recorded pneumococcal 13-valent vaccine 01/26/2018 Recorded pneumococcal 23-valent vaccine 03/08/2012 Recorded Normal [facility] Comment on above: Result Comment: Elec tronically Signed By: Stevie MORALES, [email or web address]\Date and Time Signed: 07/06/23 14:04 EST HEMATOLOGYOrdered By: SYSTEM SYSTEM on 07-06-2023 Basophil Absolute 0.0 E9/L Normal 0.0 - 0.2 E9/L Rem isol Heme Basophils/100 WBC (Bld) 0.7 % Normal 0.0 - 2.0 % Remisol Heme Eos Absolute 0.2 E9/L Normal 0.0 - 0.5 E9/L Remisol Heme Eosinophils/100 WBC (Bld) 3.1 % Normal 0.0 - 8.0 % Remisol Heme Erythrocyte distribution width (RBC) [Ratio] 13.9 % Normal 10.9 - 14.2 % Remisol Heme Hematocrit (Bld) [Volume fraction] 47.0 % Normal 37.7 - 49.0 % Remisol Heme Hemoglobin (Bld) [Mass/Vol] 15.5 g/dL Normal 13.5 - 17.5 gm/dL Remisol Heme Lymph Absolute 1.1 E9/L Normal 1.0 - 4.0 E9/L Remiso l Heme Lymphocytes/100 WBC (Bld) 17.4 % Normal 14.0 - 50.0 % Remisol Heme MCH (RBC) [Entitic mass] 30.7 pg Normal 27.0 - 34.0 pg Remisol Heme MCHC (RBC) [Mass/Vol] 33.0 g/dL Normal 31.4 - 36.0 gm/dL Remisol Heme MCV (RBC) [Entitic vol] 93.1 fL Normal 80.0 - 100.0 fL Remisol Heme [place] Absolute 0.7 E9/L Normal 0.2 - 1.0 E9/L Remisol Heme Monocytes/100 WBC (Bld) 10.5 % Normal 4.0 - 14.0 % Remisol Heme Neutro Absolute 4.3 E9/L Normal 2.0 - 7.5 E9/L Remis ol Heme Neutro Auto 68.3 % Normal 36.0 - 75.0 % Remisol He me Platelet 137.0 E9/L Low 150.0 - 500.0 E9/L [facility] Comment on above: Result Comment: Tej monson with slide review Platelet mean volume (Bld) [Entitic vol] 10.3 fL Normal 6.4 - 10.8 fL Rem[facility] Heme RBC 5.1 E12/L Normal 4.3 - 5.9 E12/L [facility] Heme WBC 6.3 E9/L Normal 4.0 - 11.0 E9/L [facility] Comment on above: Result Comment: Tej monson with slide review TSH With T4fr Reflexon 07-06 TSH Qn 0.82 m[IU]/L Normal 0.34-5.60 [facility] Comment on above: Performed By: #### 1 [id number], 3459038, [id number], [id number] #### [facility] [address] [place] [address] eGFRon 07-06-2023 eGFR 89 mL/min/1.73 m2 Normal >=59 [facility] Comment on above: Order Comment: Order added by Discern Expert. Performed By: #### 1 [id number], 0223900, [id number], [id number] #### [facility] [address] [place] [address] EKG 12 LeadOrdered By: Escobar Sanders on 06-30-2023 Atrial Rate 68 BPM [employer] Work Phone: P [place] 87 degrees [employer] [employer] Work Phone: P-R Interval 176 ms [employer] Work Phone: Q-T Interval 426 ms [employer] [employer] Work Phone: QRS Duration 144 ms [employer] [employer] Work Phone: QTc Calculation (Bazett) 452 ms [employer] Work Phone: R [place] -67 degrees [employer] [employer] Work Phone: T [place] 15 degrees [employer] [employer] Work Phone: Ventricular Rate 68 BPM [place] [employer] Work Phone: BON [employer] Work Phone: EKG 12 Leadon 06-30-2023 Normal sinus rhythm Left axis deviation Right bundle branch block Abnormal ECG No previous ECGs available Confirmed by KARL SANDERS ([id number]) on 06/30/2023 12:04:49 AM [facility] Karl Sanders MD - 06/30/2023 Normal sinus rhythm Left axis deviation Right bundle branch block Abnormal ECG No previous ECGs available Confirmed by KARL SANDERS ([id number]) on 06/30/2023 12:04:49 AM [facility] Basic Metabolic Panelon 06-14 Anion gap [Moles/Vol] 8 mmol/L Low 9 - 17 mmol/L [facility] Calcium [Mass/Vol] 9.3 mg/dL 8.6 - 10. 4 mg/dL [facility] Chloride [Moles/Vol] 106 mmol/L 98 - 10 7 mmol/L [facility] CO2 [Moles/Vol] 25 mmol/L 20 - 31 mmol/L [facility] Creatinine [Mass/Vol] 0.8 mg/dL 0.7 - 1.2 mg/dL [facility] GFR/1.73 sq M.predicted MDRD (S/P/Bld) [Vol rate/Area] - PINF [facility] Comment on above: These results are not intended for use in patients <18 years of age. eGFR results are calculated without a race factor using the 2020 CKD-EPI equation. Careful clinical correlation is recommended, particularly when comparing to results calculated using previous equations. The CKD-EPI equation is less accurate in patients with extremes of muscle mass, extra-renal metabolism of creatine, excessive creatine ingestion, or following therapy that affects renal tubular secretion. Glucose [Mass/Vol] 99 mg/dL 70 - 99 mg/dL [facility] Interpretation and review of laboratory results Abnormal [facility] Potassium [Moles/Vol] 4.6 mmol/L 3.7 - 5.3 mmol/L [facility] Sodium [Moles/Vol] 139 mmol/L 135 - 144 mmol/L [facility] Urea nitrogen [Mass/Vol] 17 mg/dL 8 - 23 mg/dL [facility] Urea nitrogen/Creatinine [Mass ratio] 21 mg/mg High 9 - 20 [facility] Basic Metabolic Profon 06-29 Anion gap [Moles/Vol] 8 mmol/L Low 9-17 [facility] Comment on above: Performed By: #### C BC, BMP #### [facility] [address] [place] [address] Manufacturing Mechanic: Rubi Almaraz MD BUN/CRE Ratio 21 High 9-20 [facility] Comment on above: Performed By: #### C BC, BMP #### [facility] [address] [place], [place] [id number] Manufacturing Mechanic: Rubi Almaraz MD Calcium [Mass/Vol] 9.3 mg/dL Normal 8.6-10.4 [facility] Comment on above: Performed By: #### C BC, BMP #### [facility] [address] [place] [address] Manufacturing Mechanic: Rubi Almaraz MD Chloride [Moles/Vol] 106 mmol/L Normal 98-107 [facility] Comment on above: Performed By: #### C BARBARA, BMP #### [facility] [address] [place], [place] [id number] Manufacturing Mechanic: Rubi Almaraz MD CO2 [Moles/Vol] 25 mmol/L Normal 20-31 [facility] Comment on above: Performed By: #### C BARBARA, BMP #### [facility] [address] [place], [place] [address] Manufacturing Mechanic: Rubi Almaraz MD Creatinine [Mass/Vol] 0.8 mg/dL Normal 0.7-1.2 [facility] Comment on above: Performed By: #### C BARBARA, BMP #### [facility] [address] [place] [address] Manufacturing Mechanic: Rubi Almaraz MD GFR/1.73 sq M.predicted among non-blacks MDRD (S/P/Bld) [Vol rate/Area] mL/min/{1.73_m2} Normal >60 [facility] Comment on above: Result Comment: These results are not intended for use in patients <18 years of age. eGFR results are calculated without a race factor using the 2020 CKD-EPI equation. Careful clinical correlation is recommended, particularly when comparing to results calculated using previous equations. The CKD-EPI equation is less accurate in patients with extremes of muscle mass, extra-renal metabolism of creatine, excessive creatine ingestion, or following therapy that affects renal tubular secretion. Performed By: #### C BC, BMP #### [facility] [address] [place], [place] [id number] Manufacturing Mechanic: Rubi Almaraz MD Glucose [Mass/Vol] 99 mg/dL Normal 70-99 [facility] Comment on above: Performed By: #### C BC, BMP #### [facility] [address] [place] [address] Manufacturing Mechanic: Rubi Almaraz MD Potassium [Moles/Vol] 4.6 mmol/L Normal 3.7-5.3 [facility] Comment on above: Performed By: #### C BC, BMP #### [address] [place] [address] Manufacturing Mechanic: Rubi Almaraz MD Sodium [Moles/Vol] 139 mmol/L Normal 135-144 [facility] Comment on above: Performed By: #### C BC, BMP #### [address] [place] [address] Manufacturing Mechanic: Rubi Almaraz MD Urea nitrogen [Mass/Vol] 17 mg/dL Normal 8-23 [facility] Comment on above: Performed By: #### C BC, BMP #### [facility] [address] [place] [address] [place] [address] Manufacturing Mechanic: Rubi Almaraz MD CBCon 06-29-2023 Erythrocyte distribution width (RBC) [Ratio] 13.3 % Normal 11.8-14.4 [facility] Comment on above: Performed By: #### C BC, BMP #### [address] [place], [place] [address] Manufacturing Mechanic: Rubi Almaraz MD Hematocrit (Bld) [Volume fraction] 49.6 % Normal 40.7-50.3 [facility] Comment on above: Performed By: #### C BC, BMP #### [address] [place] [address] Manufacturing Mechanic: Rubi Almaraz MD Hemoglobin (Bld) [Mass/Vol] 16.6 g/dL Normal 13.0-17.0 [facility] Comment on above: Performed By: #### C BC, BMP #### [address] [place], [place] [address] Manufacturing Mechanic: Rubi Almaraz MD MCH (RBC) [Entitic mass] 31.7 pg Normal 25.2-33.5 [facility] Comment on above: Performed By: #### C BARBARA, BMP #### [address] [place] [address] Manufacturing Mechanic: Rubi Almaraz MD MCHC (RBC) [Mass/Vol] 33.5 g/dL Normal 28.4-34.8 [facility] Comment on above: Performed By: #### C BARBARA, BMP #### [address] [place] [address] Manufacturing Mechanic: Rubi Almaraz MD MCV (RBC) [Entitic vol] 94.7 fL Normal 82.6-102.9 [facility] Comment on above: Performed By: #### C BARBARA, BMP #### [address] [place] [address] Manufacturing Mechanic: Rubi Almaraz MD NRBC Automated 0.0 per 100 WBC Normal 0.0 [facility] Comment on above: Performed By: #### C BARBARA, BMP #### [address] [place] [address] Manufacturing Mechanic: Rubi Almaraz MD Platelet mean volume (Bld) [Entitic vol] 12.0 fL Normal 8.1-13.5 [facility] Comment on above: Performed By: #### C BARBARA, BMP #### [facility] [address] [place], [place] [id number] Manufacturing Mechanic: Rubi Almaraz MD Platelets (Bld) [#/Vol] 156 10*3/uL Normal 138-453 [facility] Comment on above: Performed By: #### C BARBARA, BMP #### [facility] [address] [place], [place] [id number] Manufacturing Mechanic: Rubi Almaraz MD RBC (Bld) [#/Vol] 5.24 10*6/uL Normal 4.21-5.77 [facility] Comment on above: Performed By: #### C BARBARA, BMP #### [facility] [address] [place], [place] [id number] Manufacturing Mechanic: Rubi Almaraz MD WBC (Bld) [#/Vol] 6.9 10*3/uL Normal 3.5-11.3 [facility] Comment on above: Performed By: #### C BARBARA, BMP #### [facility] [address] [place], [place] [id number] Manufacturing Mechanic: Rubi Almaraz MD Erythrocyte distribution width (RBC) [Ratio] 13.3 % 11.8 - 14.4 % [facility] Hematocrit (Bld) [Volume fraction] 49.6 % 40.7 - 50.3 % [facility] Hemoglobin (Bld) [Mass/Vol] 16.6 g/dL 13.0 - 17.0 g/dL [facility] MCH (RBC) [Entitic mass] 31.7 pg 25.2 - 33.5 pg [facility] MCHC (RBC) [Mass/Vol] 33.5 g/dL 28.4 - 34.8 g/dL [facility] MCV (RBC) [Entitic vol] 94.7 fL 82.6 - 102.9 fL [facility] Nucleated RBC/100 WBC (Bld) [Ratio] 0.0 % 0.0 per 100 WBC [facility] Platelet mean volume (Bld) [Entitic vol] 12.0 fL 8.1 - 13.5 fL [facility] Platelets (Bld) [#/Vol] 156 10*3/uL [facility] RBC (Bld) [#/Vol] 5.24 10*6/uL 4.21 - 5.7 7 m/uL [email or web address] WBC other (Bld) [#/Vol] 6.9 [facility] Vital Signs Date Time Vital Sign Value Performing Clinician Facility 07-08-2023 09:45-0500 Diastolic blood pressure 69 mm[Hg] Srinivasan Consolo DPM Work Phone: [facility] 07-08-2023 09:45-0500 Heart rate 59 /min Srinivasan Consolo DPM Work Phone: [facility] 07-08-2023 09:45-0500 Respiratory rate 17 /min Srinivasan Consolo DPM Work Phone: [facility] 07-08-2023 09:45-0500 SaO2% (BldA) [Mass fraction] 95 % Srinivasan Consolo DPM Work Phone: [facility] 07-08-2023 09:45-0500 Systolic blood pressure 119 mm[Hg] Srinivasan Consolo DPM Work Phone: [facility] 07-08-2023 09:10-0500 Body temperature 96.91 [degF] Srinivasan Consolo DPM Work Phone: [facility] [employer] 07-08-2023 06:33-0500 Body height 177.8 cm Srinivasan Consolo DPM Work Phone: [facility] [employer] 07-08-2023 06:33-0500 Body mass index (BMI) [Ratio] 30.39 kg/m2 Srinivasan Consolo DPM Work Phone: [facility] [employer] 07-08-2023 06:33-0500 Body weight 96.07 kg Srinivasan Consolo DPM Work Phone: [facility] [employer] 06-29-2023 08:38-0500 Body height 177.8 cm Srinivasan Consolo DPM Work Phone: [facility] [employer] 06-29-2023 08:38-0500 Body mass index (BMI) [Ratio] 30.71 kg/m2 Srinivasan Consolo DPM Work Phone: [facility] [employer] 06-29-2023 08:38-0500 Body temperature 97.3 [degF] Srinivasan Consolo DPM Work Phone: [facility] [employer] 06-29-2023 08:38-0500 Body weight 97.07 kg Srinivasan Consolo DPM Work Phone: [facility] [employer] 06-29-2023 08:38-0500 Diastolic blood pressure 81 mm[Hg] Srinivasan Consolo DPM Work Phone: [facility] [employer] 06-29-2023 08:38-0500 Heart rate 74 /min Srinivasan Consolo DPM Work Phone: [facility] [employer] 06-29-2023 08:38-0500 Respiratory rate 18 /min Srinivasan Consolo DPM Work Phone: [facility] 06-29-2023 08:38-0500 SaO2% (BldA) [Mass fraction] 96 % Srinivasan Consolo DPM Work Phone: [email or web address] 06-29-2023 08:38-0500 Systolic blood pressure 160 mm[Hg] Srinivasan Consolo DPM Work Phone: [facility] 04-17-2022 10:22-0400 Blood Pressure Location Andre ORELLANA [facility] 04-17-2022 10:22-0400 Diastolic blood pressure 81 mm[Hg] Andre ORELLANA [facility] 04-17-2022 10:22-0400 Heart rate 71 /min Andre ORELLANA [facility] 04-17-2022 10:22-0400 Systolic blood pressure 139 mm[Hg] Andre ORELLANA [facility] 11-13-2021 10:17-0400 Diastolic blood pressure 84 mm[Hg] Srinivasan Consolo DPM Work Phone: [facility] 11-13-2021 10:17-0400 Heart rate 66 /min Srinivasan Consolo DPM Work Phone: [facility] 11-13-2021 10:17-0400 Respiratory rate 18 /min Srinivasan Consolo DPM Work Phone: [facility] 11-13-2021 10:17-0400 SaO2% (BldA) [Mass fraction] 97 % Srinivasan Consolo DPM Work Phone: [employer] 11-13-2021 10:17-0400 Systolic blood pressure 140 mm[Hg] Srinivasan Consolo DPM Work Phone: [employer] 11-13-2021 08:46-0400 Body height 177.8 cm Srinivasan Consolo DPM Work Phone: [employer] 11-13-2021 08:46-0400 Body mass index (BMI) [Ratio] 30.13 kg/m2 Srinivasan Consolo DPM Work Phone: [employer] 11-13-2021 08:46-0400 Body temperature 96.49 [degF] Srinivasan Consolo DPM Work Phone: [employer] Comment on above: checked 4x 11-13-2021 08:46-0400 Body weight 95.25 kg Srinivasan Consolo DPM Work Phone: [employer] Encounters Encounter Date Encounter Type Care Provider Facility Start: 10-04-2023 ambulatory [facility] Start: 08-30-2023 ambulatory Andre ORELLANA Facility :[facility] Start: 07-08-2023 ambulatory Mak Hubbard Facility: [facility] Start: 07-08-2023 End: 07-08-2023 ambulatory BRUNILDA LY [facility] Start: 07-08-2023 End: 07-08-2023 Subsequent hospital visit by physician Srinivasan Rahman DPM Work Phone: [facility] Comment on above: Mass of skin of toe of left foot Start: 07-06-2023 End: 07-07-2023 ambulatory Mak EZaynab Hubbard Facility:[facility] Start: 07-06-2023 End: 07-06-2023 Lab Drop off Mak Hubbard [facility] Start: 06-29-2023 End: 07-04-2023 ambulatory SRINIVASANKENZIE [facility] Start: 06-29-2023 End: 07-03-2023 Subsequent hospital visit by physician Srinivasan Rahman DPM Work Phone: [facility] Start: 06-15-2023 End: 06-16-2023 ambulatory Mak Hubbard Facility:[facility] Start: 10-14-2022 End: 11-11-2022 ambulatory ANA SAMSA . Facility:[facility] Start: 09-16-2022 End: 10-07-2022 ambulatory ANA SAMSA . Facility:[facility] Start: 08-18-2022 End: 09-08-2022 ambulatory ANA SAMSA . Facility:[facility] Start: 07-21-2022 End: 08-11-2022 ambulatory ANA SAMSA . Facility:[facility] Start: 06-15-2022 End: 07-14-2022 ambulatory ANA SAMSA . Facility:[facility] Start: 05-19-2022 End: 06-09-2022 ambulatory ANA SAMSA . Facility:[facility] Start: 04-17-2022 End: 04-17-2022 Patient encounter procedure Andre ORELLANA [facility] Start: 04-14-2022 End: 04-15-[address] DOCTOR HERNANDEZ Facility:[facility] Start: 04-14-2022 End: 05-12-2022 ambulatory ANA FERNANDO . Facility:[facility] Start: 03-17-2022 End: 04-07-2022 ambulatory ANADILSHAD FERNANDO . Facility:[facility] Start: 02-17-2022 End: 03-10-2022 ambulatory ANADILSHAD FERNANDO . Facility:[facility] Start: 01-13-2022 End: 02-10-2022 ambulatory ANADILSHAD FERNANDO . Facility:[facility] Start: 12-16-2021 End: 01-06-2022 ambulatory ANADILSHAD FERNANDO . Facility:[facility] Start: 11-13-2021 End: 11-13-2021 Subsequent hospital visit by physician Srinivasan Rahman DPM Work Phone: [facility] Procedures Date Procedure Procedure Detail Performing Clinician Start: 06-29-2023 Ecg routine ecg w/le ast 12 lds w/i&r Srinivasan Rahman DPM Work Phone: Start: 06-29-2023 Basic metabolic pane l calcium total Srinivasan Rahman DPM Work Phone: Start: 04-14-2022 PSA screening ANA PARSON [facility] . Comment on above: Performed By: #### P SAD #### [facility] [address] [place] [address] Dr. Padmiin Parson Start: 02-26-2015 Robot assisted lapar oscopic radical prostatectomy Andre ORELLANA Start: 12-06-2014 Ultrasonography guid ed transrectal cryoablation of prostate Andre ORELLANA Start: 06-14-2001 Transurethral prostatectomy Andre ORELLANA Cataract (disorder) Andre ORELLANA Cystoscopy Andre ORELLANA Hydrocelectomy Andre ORELLANA Repair of incisional hernia Andre ORELLANA Total thyroidectomy Andre ORELLANA Plan of Treatment Date Care Activity Detail Author Start: 03-26-2033 DTaP/Tdap/Td vaccine (2 - Td or Tdap) DTaP/Tdap/Td vaccine (2 - Td or Tdap) [facility] Start: 07-08-2023 End: 07-08-2023 Admission to same day surgery center 07/08/2023 8:00 AM EST - 07/08/2023 9:05 AM EST Surgery [facility] [address] [place] [address] Srinivasan Rahman, DPM [address] [place] [address] TOE HAMMER REPAIR-DISTAL SYNES PROCEDURE 5TH DIDGET [facility] Comment on above: TOE HAMMER REPAIR-DI STAL SYNES PROCEDURE 5TH DIDGET Start: 07-08-2023 End: 07-08-2023 Anesthesia consultation 07/08/2023 8:00 AM EST Anesthesia Event [facility] [address] [place], [place] [id number] Monse Dotson, COMPUTED TOMOGRAPHY TECHNOLOGIST - MENTALLY IMPAIRED TEACHER [address] [address] [address] [place] [address] [facility] Start: 07-08-2023 End: 07-08-2023 Correction [facility] Start: 07-08-2023 Subsequent hospital visit by physician 07/08/2023 8:00 AM EST Hospital Encounter [facility] [address] [place] [id number] Srinivasan Rahman, DPM [address] [place] [address] [facility] Start: 05-10-2023 Annual Wellness Visi t (Medicare) Annual Wellness Visit (Medicare) [facility] Start: 02-12-2022 Influenza vaccination Flu vacc ine (Season Ended) [facility] Start: 11-13-2021 End: 11-13-2021 Correction hammertoe FOOT BUNIONECTOMY Bone spur 11/13/2021 9:42 AM EDT [facility] Start: 01-08-2008 Pneumococcal 65+ yea rs Vaccine (1 - PCV) Pneumococcal 65+ years Vaccine (1 - PCV) [facility] Start: 2003 Respiratory Syncytia l Virus (RSV) or age 60 yrs+ (1 - 1-dose 60+ series) Respiratory Syncytial Virus (RSV) or age 60 yrs+ (1 - 1-dose 60+ series) [facility] Start: 1993 Shingles vaccine (1 of 2) Shingles vaccine (1 of 2) [facility] Start: 1983 Prostate specific antigen measurement Prostate Specific Antigen (PSA) Screening or Monitoring [facility] Start: 1962 DTaP/Tdap/Td vaccine (1 - Tdap) DTaP/Tdap/Td vaccine (1 - Tdap) [facility] Start: 1961 Hepatitis C screening Hepatitis C sc reen [facility] Start: 1955 Depression Screen Depression Screen [facility] Start: 01-08-1948 COVID-19 Vaccine (1) COVID-19 Vaccin e (1) [facility] Start: 1943 COVID-19 Vaccine (#1) COVID-19 Vacci ne (#1) [facility] aPTT in Blood by Coagulation assay APTT Lab Routine Mass of skin of toe of left foot Release Upon Ordering for 1 Occurrences starting 07/08/2023 [facility] Comment on above: Release Upon Orderin g for 1 Occurrences starting 07/08/2023 Surgical Pathology Surgical Path ology Lab Routine Mass of skin of toe of left foot Release Upon Ordering for 1 Occurrences starting 07/08/2023 [facility] Work Phone: Comment on above: Release Upon Orderin g for 1 Occurrences starting 07/08/2023 Immunizations Immunization Date Immunization Notes Care Provider Mala [place] 04-09-2023 influenza virus vaccine, unspecified formulation Mak Hubbard [facility] 03-26-2023 pneumococcal 20-alexandre nt conjugate vaccine Mak Hubbard [facility] 03-26-2023 tetanus toxoid, redu pj diphtheria toxoid, and acellular pertussis vaccine, adsorbed Mak Hubbard [facility] 05-26-2019 influenza virus vaccine, unspecified formulation Mak Hubbard [facility] 03-14-2018 influenza virus vaccine, unspecified formulation Mak Hubbard [facility] 03-14-2018 pneumococcal conjuga te vaccine, 13 valent Mak Hubbard [facility] 01-26-2018 pneumococcal conjuga te vaccine, 13 valent Mak Hubbadr [facility] 03-08-2012 pneumococcal polysaccharide vaccine, 23 valent Mak Hubbard [facility] NEGATED: Highlighted row has not occurred!04-17-2022 SARS-CoV-2 mRNA (tozinameran 5y-11y) vaccine Andre ORELLANA [facility] [place] Payers Date Payer Category Payer Medicare [id number] 2007 Unknown [id number] 1.2.8 [id number] 1959 Medicare [id number] 1959 Unknown [id number] 1943 Unknown [id number] 2.16.84 0.1.161747.3.579.2.593 1943 Unknown [id number] 2.16.84 0.1.103116.3.579.2.593 1943 Unknown [id number] 2.16.84 0.1.776465.3.579.2.593 1943 Unknown [id number] 2.16.84 0.1.521480.3.579.2.593 1943 Unknown [id number] 2.16.84 0.1.525188.3.579.2.593 1943 Unknown [id number] 2.16.84 0.1.045920.3.579.2.593 1943 Unknown [id number] 2.16.84 0.1.861872.3.579.2.593 1943 Unknown [id number] 2.16.84 0.1.317177.3.579.2.593 1943 Unknown [id number] 2.16.84 0.1.153224.3.579.2.593 1943 Unknown [id number] 2.16.84 0.1.405400.3.579.2.593 1943 Unknown [id number] 2.16.84 0.1.993732.3.579.2.593 1943 Unknown [id number] 2.16.84 0.1.378483.3.579.2.593 1943 Unknown [id number] 2.16.8 40.1.425399.3.579.2.173 1943 Unknown [id number] 2.16.8 40.1.708994.3.579.2.173 1943 Unknown [id number] 2.16.8 40.1.873808.3.579.2.727 1943 Unknown [id number] 2.16.8 40.1.159730.3.579.2.727 1943 Unknown [id number] 2.16.8 40.1.422764.3.579.2.727 1943 Unknown [id number] 2.16.8 40.1.139489.3.579.2.727 1943 Unknown [id number] 2.16.8 40.1.896137.3.579.2.727 Social History Date Type Detail Facility Start: 10-29-2021 End: 07-06-2023 Tobacco smoking status NHIS Never smoked tobacco [employer] Phone: Start: 10-29-2021 Tobacco use and exposure Smokeless tobacco non-user [employer] Phone: Start: 11-13-2021 End: 07-08-2023 Alcohol intake Ex-drinker (finding) [employer] Phone: Start: 1945 Sex Assigned At Not on file [facility] [employer] Phone: Start: 11-03-2021 End: 11-13-2021 Exposure to SARS-CoV-2 (event) Not sure [employer] Phone: Tobacco smoking status Never [facility] Start: 06-29-2023 Sex Assigned At Male F [facility] Start: 06-29-2023 History of Social function [employer] Functional Status Date Assessment Result Facility 04-17-2022 Functional Status N/A [facility] Clinical Notes 11-13-2021 to 07-08-2023 Eleonora Owens RN - 07/08/2023 9:52 AM Eleonora Porter RN - 07/08/2023 9:45 AM ESTDischarTammie Ordonez RN - 06/29/2023 9:00 AM EST Note Date & Type Note Facility 07-08-2023 History of Presen t illness Narrative Discharge instructions reviewed with patient and patient's . Both imply understanding. Darco shoe put on left foot at this time. Marcio wrap clean and dry to left foot. No drainage. Patient denies c/o pain. Positive for numbness. documented in this encounter [facility] 07-08-2023 [facility] Discharg e instructions Eleonora Owens RN - 07/08/2023 9:34 AM EST SAME DAY SURGERY DISCHARGE INSTRUCTIONS 1. Do not drive or operate hazardous machinery for 24 hours. 2. Do not make important personal or business decisions for 24 hours. 3. Do not drink alcoholic beverages for 24 hours. 4. Do not smoke tobacco products for 24 hours. 5. Eat light foods and drink plenty of fluids up to 8 glasses per day, as you can tolerate. 6. If your bandages become soaked with bright red blood, place another dressing pad over your bandages. (DO NOT remove original bandage.) Call your surgeon for further instructions. A small amount of bright red blood is to be expected. 7. Limit your activities for 24 hours. Do not engage in heavy work until your surgeon gives you permission. 8. Patient should not be left alone for 12-24 hours following surgical procedure. 9. Report the following signs or any questions regarding your physical condition to your surgeon immediately: Excessive swelling of, or around the wound area. Redness. Temperature of 100 degrees (F) or above. Excessive pain. 10. Call your surgeon for any questions regarding your surgery. POST-OPERATIVE INSTRUCTIONS Elevate extremity at the level of your heart or above. Ice 30 minutes on, 30 minutes off for the first 24 hours. Do not remove bandages and dressing. Do not get bandages wet. Take pain medications as directed. Resume your regular diet. Any question or concerns please call the office ([phone]). If after hours Dr. Rahman can be reached at [phone] (home) or [phone] (cell phone). documented in this encounter [facility] 06-29-2023 History of Presen t illness Narrative Patient instructed on the pre-operative, intra-operative, and post-operative process. Patient instructed on NPO status. Medication instructions and pre operative instruction sheet reviewed with the patient. CHG skin prep instructions reviewed with patient. [facility] Preadmission Testing Name: Rubi Flores : 1945 Patient (home) Procedure left distal synes procedure Date of Procedure: 07/08/23 Surgeon: Srinivasan Rahman DPM Ht: 177.8 cm (5' 10 ) Wt: 97.1 kg (214 lb) Wt method: Actual Allergies: Allergies Allergen Reactions Codeine Pcn [Penicillins] Sulfa Antibiotics Peanut allergy: No Vitals: 06/29/23 0838 BP: (!) 160/81 Pulse: 74 Resp: 18 Temp: 97.3 F (36.3 C) SpO2: 96% No LMP for male patient. Do you take blood thinners? [x] Yes [] No Instructed to stop blood thinners prior to procedure? [x] Yes [] No [] N/A Do you have sleep apnea? [] Yes [x] No Instructed to bring CPAP machine? [] Yes [] No [x] N/A Do you have acid reflux ? [] Yes [x] No Do you have hiatal hernia? [] Yes [x] No Do you ever experience motion sickness? [] Yes [x] No Have you had a respiratory infection or sore throat in last 4 weeks before surgery? [] Yes [x] No Do you have poorly controlled asthma or COPD? [] Yes [x] No Do you have a history of angina in the last month or symptomatic arrhythmia? [] Yes [x] No Do you have significant central nervous system disease? [] Yes [x] No Have you had an EKG, labs, or chest xray in last 12 months? If yes provide copies to anesthesia [] Yes [x] No [] Lab [] EKG [] CXR Have you had a stress test? [] Yes [x] No When/where: Was it normal? [] Yes [] No Do you or your family have a history of Malignant Hyperthermia? [] Yes [x] No Patient instructed on: [x] NPO Status [x] Meds to Take Day of Surgery [x] Ride Home [x]No Jewelry/Contact Lenses/Dentures day of surgery [x] Chlorhexidene PAT Call/Visit Questions Person Interviewed: Rubi Relationship to Patient: Patient Surgery Time Verified: Yes Surgery Location Verified: Yes NPO Status Reinforced: Yes Ride and Caregiver Arranged: Yes CHG Bottle/Wipes provided with instructions for use: Yes Pre-AdmissionTesting Checklist Communication Needs: None Patient instructed on the pre-operative, intra-operative, and post-operative process? Yes Medication instructions reviewed with patient? Yes Pre operative instruction sheet reviewed and given to patient in PAT? Yes documented in this encounter [facility] 04-17-2022 Hospital Discharg e instructions Patient Education 04/17/2022 10:29:46 Overactive Bladder, Adult Overactive Bladder, Adult Overactive bladder refers to a condition in which a person has a sudden need to pass urine. The person may leak urine if he or she cannot get to the bathroom fast enough (urinary incontinence). A person with this condition may also wake up several times in the night to go to the bathroom. Overactive bladder is associated with poor nerve signals between your bladder and your brain. Your bladder may get the signal to empty before it is full. You may also have very sensitive muscles that make your bladder squeeze too soon. These symptoms might interfere with daily work or social activities. What are the causes? This condition may be associated with or caused by: Urinary tract infection. Infection of nearby tissues, such as the prostate. Prostate enlargement. Surgery on the uterus or urethra. Bladder stones, inflammation, or tumors. Drinking too much caffeine or alcohol. Certain medicines, especially medicines that get rid of extra fluid in the body (diuretics). Muscle or nerve weakness, especially from: ?A spinal cord injury. ?Stroke. ?Multiple sclerosis. ?Parkinson's disease. Diabetes. Constipation. What increases the risk? You may be at greater risk for overactive bladder if you: Are an older adult. Smoke. Are going through menopause. Have prostate problems. Have a neurological disease, such as stroke, dementia, Parkinson's disease, or multiple sclerosis (MS). Eat or drink things that irritate the bladder. These include alcohol, spicy food, and caffeine. Are overweight or obese. What are the signs or symptoms? Symptoms of this condition include: Sudden, strong urge to urinate. Leaking urine. Urinating 8 or more times a day. Waking up to urinate 2 or more times a night. How is this diagnosed? Your health care provider may suspect overactive bladder based on your symptoms. He or she will diagnose this condition by: A physical exam and medical history. Blood or urine tests. You might need bladder or urine tests to help determine what is causing your overactive bladder. You might also need to see a health care provider who specializes in urinary tract problems (urologist). How is this treated? Treatment for overactive bladder depends on the cause of your condition and whether it is mild or severe. You can also make lifestyle changes at home. Options include: Bladder training. This may include: ?Learning to control the urge to urinate by following a schedule that directs you to urinate at regular intervals (timed voiding). ?Doing Kegel exercises to strengthen your pelvic floor muscles, which support your bladder. Toning these muscles can help you control urination, even if your bladder muscles are overactive. Special devices. This may include: ?Biofeedback, which uses sensors to help you become aware of your body's signals. ?Electrical stimulation, which uses electrodes placed inside the body (implanted) or outside the body. These electrodes send gentle pulses of electricity to strengthen the nerves or muscles that control the bladder. ?Women may use a plastic device that fits into the vagina and supports the bladder (pessary). Medicines. ?Antibiotics to treat bladder infection. ?Antispasmodics to stop the bladder from releasing urine at the wrong time. ?Tricyclic antidepressants to relax bladder muscles. ?Injections of botulinum toxin type A directly into the bladder tissue to relax bladder muscles. Lifestyle changes. This may include: ?Weight loss. Talk to your health care provider about weight loss methods that would work best for you. ?Diet changes. This may include reducing how much alcohol and caffeine you consume, or drinking fluids at different times of the day. ?Not smoking. Do not use any products that contain nicotine or tobacco, such as cigarettes and e-cigarettes. If you need help quitting, ask your health care provider. Surgery. ?A device may be implanted to help manage the nerve signals that control urination. ?An electrode may be implanted to stimulate electrical signals in the bladder. ?A procedure may be done to change the shape of the bladder. This is done only in very severe cases. Follow these instructions at home: Lifestyle Make any diet or lifestyle changes that are recommended by your health care provider. These may include: ?Drinking less fluid or drinking fluids at different times of the day. ?Cutting down on caffeine or alcohol. ?Doing Kegel exercises. ?Losing weight if needed. ?Eating a healthy and balanced diet to prevent constipation. This may include: ?Eating foods that are high in fiber, such as fresh fruits and vegetables, whole grains, and beans. ?Limiting foods that are high in fat and processed sugars, such as fried and sweet foods. General instructions Take pbhj-ykk-nlfrwui and prescription medicines only as told by your health care provider. If you were prescribed an antibiotic medicine, take it as told by your health care provider. Do not stop taking the antibiotic even if you start to feel better. Use any implants or pessary as told by your health care provider. If needed, wear pads to absorb urine leakage. Keep a journal or log to track how much and when you drink and when you feel the need to urinate. This will help your health care provider monitor your condition. Keep all follow-up visits as told by your health care provider. This is important. Contact a health care provider if: You have a fever. Your symptoms do not get better with treatment. Your pain and discomfort get worse. You have more frequent urges to urinate. Get help right away if: You are not able to control your bladder. Summary Overactive bladder refers to a condition in which a person has a sudden need to pass urine. Several conditions may lead to an overactive bladder. Treatment for overactive bladder depends on the cause and severity of your condition. Follow your health care provider's instructions about lifestyle changes, doing Kegel exercises, keeping a journal, and taking medicines. This information is not intended to replace advice given to you by your health care provider. Make sure you discuss any questions you have with your health care provider. Document Released: 03/27/2010 Document Revised: 09/21/2019 Document Reviewed: 06/16/2018 [employer] Patient Education 2019 [employer] Follow Up Care 04/18/2021 10:41:15 With:Andre ORELLANA MD, URL Address: [address] [facility] [address] [place] [id number]- When: Unknown [facility] [employer] 11-13-2021 History of Presen t illness Narrative Discharge instructions reviewed with patient. Verbalized understanding and denied any questions. Patient walked with steady gait and use of post op shoe. Patient instructed on the pre-operative, intra-operative, and post-operative process. Medication instructions and pre operative instruction sheet reviewed with the patient. 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 Evaluation + Plan note Future Appointments Appointment Date:08/30/2023 09:30:00 AM Scheduled Provider:Andre ORELLANA MD Location:[facility] Appointment Type:URO Office Visit [facility] Evaluation note Diagnosis Mass of skin of toe of left foot documented in this encounter [facility] Narrative No data available for this section [facility] Discharge instructions* Instructions* Joyce Rodney RN - 11/13/2021 SAME DAY SURGERY DISCHARGE INSTRUCTIONS 1. If your bandages become soaked with bright red blood, place another dressing pad over your bandages. (DO NOT remove original bandage.) Call your surgeon for further instructions. A small amount ofbright red blood is to be expected. 2. Limit your activities for 24 hours. Do not engage in heavy work until your surgeon gives you permission. 3. Report the following signs or any questions regarding your physical condition to your surgeon immediately: Excessive swelling of, or around the wound area. Redness. Temperature of 100 degrees (F) or above. Excessive pain. 4. Call your surgeon for any questions regarding your surgery. POST-OPERATIVE INSTRUCTIONS Elevate extremity at the level of your heart or above. Ice 30 minutes on, 30 minutes off for the first 24 hours. Do not remove bandages and dressing. Do not get bandages wet. Take pain medications as directed. Resume your regular diet. Any question or concerns please call the office ([phone]). If after hours Dr. Rahman can be reached at [phone] (home) or [phone] (cell phone). documented in [facility] [employer] Work Phone: Hospital Discharge instructions No data available for this section [facility] No data available for this section [facility] Reason for visit Narrative* Auth/Cert Specialty Diagnoses / Procedures Referred By Rebecca wadsworth Referred To Contact Diagnoses Calcaneal spur, left SPUR LEFT 5TH DIGIT Procedures [place] REPAIR OF HAMMERTOE,ONE FOOT BUNIONECTOMY- EXCISION SPUR L5TH DIGIT Srinivasan Rahman, DPM [address] [place] [address] [facility] [employer] [address] [place] [address] Referral ID Status Reason Start Date Expiration Date Visits Re quested Visits Authorized [id number] 1 1 [employer] Work Phone: Advance Directives No Advanced Directives Records FoundDocuments on File Type Date 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 Summary Purpose Family History No Family History Records Found No data available for this section No Family History Records FoundNo Family History Records Found Additional Source Comments PRN Active and Recently Administ ered Medications (unrecognized section and content) Medication Order 11/11/2021 11/12/2021 11/13/2021 bupivacaine-EPINEPHrine (MARCAINE-w/EPINEPHRINE) 0.5% -1:[id number] 2 mL, lidocaine PF 2 % 2 mL (CANCELED) PRN, Starting on Roberta 11/13/21 at 1006, Intra-op 1006 (Given - Provid er: Srinivasan Rahman DPM) sodium chloride 0.9 % 500 mL with gentamicin (GARAMYCIN) 80 mg (CANCELED) PRN, Starting on Roberta 11/13/21 at 1002, Intra-op 1002 (Given - Provid er: Srinivasan Rahman DPM) Scheduled Medication Order 07/06/2023 07/07/2023 07/08/2023 acetaminophen (TYLENOL) tablet 650 mg (COMPLETED) 650 mg, Oral, ONCE, 1 dose, On Roberta 07/08/23 at 0645, Maximum dose of acetaminophen is 4000 mg from all sources in 24 hours., Pre-op (day of surgery) 0645 (Given - Provid er: Betty Ram RN) clindamycin (CLEOCIN) 900 mg in dextrose 5 % 50 mL IVPB (COMPLETED) 900 mg, IntraVENous, ONCE, 1 dose, On Roberta 07/08/23 at 0645, Antimicrobial Indications: Surgical Prophylaxis, Pre-op (day of surgery) 0807 (New Bag - Prov ider: Denise Santiago RN - Comment: On callto the OR)0907 (Due: Stopped - Provider: Denise Santiago RN) lactated ringers IV soln infusion (COMPLETED) IntraVENous, at 100 mL/hr, ONCE, On Roberta 07/08/23 at 0645, For 1 dose, Pre-op (day of surgery) 0653 (New Bag - Prov ider: Betty Ram RN) PRN Medication Order 07/06/2023 07/07/2023 07/08/2023 BUPivacaine (MARCAINE) 0.5 % injection (CANCELED) PRN, Starting on Roberta 07/08/23 at 0900, Until Roberta 07/08/23 at 0918, Intra-op 0900 (Given - Provid er: Srinivasan Rahman DPM) lidocaine 2 % injection (CANCELED) PRN, Starting on Roberta 07/08/23 at 0835, Until Roberta 24 at 0918, Intra-op 0835 (Canceled Entry - Provider: Srinivasan Rahman DPM)0857 (Given - Provider: Srinivasan Rahman DPM) lidocaine-EPINEPHrine 2 percent-1:[id number] injection (CANCELED) PRN, Starting on Roberta 07/08/23 at 0901, Until Roberta 07/08/23 at 0918, Intra-op 0901 (Given - Provid er: Srinivasan Rahman DPM) No Frequency Medication Order 07/06/2023 07/07/2023 07/08/2023 BUPivacaine (PF) (MARCAINE) 0.5 % injection 1 dose, Starting on Roberta 07/08/23 at 0734, Until Roberta 07/08/23 at 1944, Denise Santiago: saminet overrPamela judd Rose: cabinet override 0745 (Due) dexAMETHasone (DECADRON) 4 MG/ML injection 1 dose, Starting on Roberta 07/08/23 at 0734, Until Roberta 07/08/23 at 1944, Denise Santiago: cabinet overrPamela judd Rose: cabinet override 0745 (Due) gentamicin (GARAMYCIN) 40 MG/ML injection 1 dose, Starting on Roberta 07/08/23 at 0735, Until Roberta 07/08/23 at 1944, Denise Santiago: cabinet overrPamela judd Rose: cabinet override 0745 (Due) lidocaine 1 % injection 1 dose, Starting on Roberta 07/08/23 at 0734, Until Roberta 07/08/23 at 1944, Denise Santiago: saminet overrPamela judd Rose: cabinet override 0745 (Due) Care Teams (unrecognized sec tion and content) Face Boss Relationship Specialty Start Date End Date Brunilda Ly DO [address] [place] [address] PCP - General 11/12/21 Face Boss Relationship Specialty Start Date End Date Brunilda Ly DO [address] [facility] [place] [address] PCP - General 11/12/21 Face Boss Relationship Specialty Start Date End Date Brunilda Ly DO [address] [place] [address] PCP - General 11/12/21 (unrecognized sect ion and content) No Status Records FoundNo Status Records FoundNo Status Records Found INFORMATION SOURCE (unrecogn ized section and content) DATE CREATED AUTHOR 11/20/2022 [facility] DATE CREATED AUTHOR AUTHOR'S ORGANIZ ATION 07/11/2023 [facility] DATE CREATED AUTHOR AUTHOR'S ORGANIZ ATION 10/03/2023 [facility] Reason for Visit (unrecogniz ed section and content) Specialty Diagnoses / Procedures Referred By Rebecca wadsworth Referred To Contact Diagnoses Mass of skin of toe of left foot Mass of skin of toe of left foot [R22.42] Procedures [place] CORRECTION HAMMERTOE TOE HAMMER REPAIR-DISTAL SYNES PROCEDURE 5TH Srinivasan Mcdonough, DPM [address] [place] [address] [facility] [address] [place] [address] Referral ID Status Reason Start Date Expiration Date Visits Re quested Visits Authorized [id number] 1 1 FOR RECORDS PERTAINING TO PATIENTS WHO ARE OR HAVE BEEN ENROLLED IN A CHEMICAL DEPENDENCY/SUBSTANCEABUSE PROGRAM, SOME INFORMATION MAY BE OMITTED. This clinical summary was aggregated from multiple sources. Caution should be exercised in using it in the provision of clinical care. This summary normalizes information from multiple sources, and as a consequence, information in this document may materially change the coding, format and clinical context of patient data. In addition, data may be omitted in some cases. CLINICAL DECISIONS SHOULD BE BASED ON THE PRIMARY CLINICAL RECORDS. [facility] provides no warranty or guarantee of the accuracy or completeness of information in this document.
--- NOTE | 2023-10-04 19:52 | ECG_ITS ---
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
--- NOTE | 2023-10-04 19:53 | ED_ITS ---
HPI - Abdominal Pain General Chief Complaint: Abdominal Pain Stated Complaint: abdominal pain, nausea and vomitting Time Seen by Provider: 10/04/23 19:36 Source: patient Mode of arrival: walk-in Limitations: no limitations History of Present Illness HPI narrative: 78-year-old male presents for abdominal pain. It started in his very low left lower back and now has wraps around towards the front. It started today. He vomited at home. No dysuria or hematuria and he has never had a kidney stone. No fever or cough. Earlier in the day he had his wellness check and everything was fine at that time. The pain is moderate and continuous. Related Data Home Medications ?Medication ?Instructions ?Recorded ?Confirmed albuterol 90 mcg/actuation aerosol 90 mcg inhalation .1 puff daily 11/25/22 10/04/23 inhaler alpha-1 proteinase inhib.(hum) 6,000 mg IV .weekly 11/25/22 10/04/23 1,000 mg intravenous solution (Prolastin-C) aspirin 81 mg tablet,delayed 81 mg PO DAILY 11/25/22 10/04/23 release budesonide 160 mcg-glycopyr 9 2 inh inhalation BID 11/25/22 10/04/23 mcg-formot 4.8 mcg/actuation HFA inhaler (Breztri Aerosphere) levothyroxine 125 mcg capsule 100 mcg PO DAILY 11/25/22 10/04/23 Allergies Allergy/AdvReac Type Severity Reaction Status Date / Time Penicillins Allergy Intermediate Rash Verified 11/25/22 09:55 codeine AdvReac Unknown vertigo Verified 11/25/22 09:55 Review of Systems ROS Narrative A ten point review of systems is negative except as noted above. [facility] Medical History (Updated 10/04/23 @ 22:24 by Clint Quach MD) Hypothyroidism associated with surgical procedure ?E89.0 - Postprocedural hypothyroidism (ICD-10) Arthritis ?M19.90 - Unspecified osteoarthritis, unspecified site (ICD-10) Hyperthyroidism ?E05.90 - Thyrotoxicosis, unspecified without thyrotoxic crisis or storm (ICD-10) Prostate cancer ?C61 - Malignant neoplasm of prostate (ICD-10) COVID-19 ?U07.1 - COVID-19 (ICD-10) COPD (chronic obstructive pulmonary disease) ?J44.9 - Chronic obstructive pulmonary disease, unspecified (ICD-10) Pneumonia ?J18.9 - Pneumonia, unspecified organism (ICD-10) Surgical History (Updated 11/25/22 @ 10:11 by Kashmir Zhao) History of robot-assisted laparoscopic radical prostatectomy ?Z90.79 - Acquired absence of other genital organ(s) (ICD-10) History of phacoemulsification of cataract of both eyes with intraocular lens implantation ?Z98.41 - Cataract extraction status, right eye (ICD-10) ?Z98.42 - Cataract extraction status, left eye (ICD-10) ?Z96.1 - Presence of intraocular lens (ICD-10) History of hernia repair ?Z98.890 - Other specified postprocedural states (ICD-10) ?Z87.19 - Personal history of other diseases of the digestive system (ICD-10) H/O umbilical hernia repair ?Z98.890 - Other specified postprocedural states (ICD-10) ?Z87.19 - Personal history of other diseases of the digestive system (ICD-10) Hx of colonoscopy (Unknown) ?Z98.890 - Other specified postprocedural states (ICD-10) Family History (Updated 11/25/22 @ 10:30 by Kashmir Zhao) Father Colon cancer Brother Colon cancer Social History (Updated 11/25/22 @ 10:31 by Kashmir Zhao) Smoking status: Never smoker Exam Narrative Exam Narrative: Nurses note and vital signs reviewed and patient is not hypoxic. General: The patient appears well and in no apparent distress. Patient is resting comfortably on cart. Skin: Warm, dry, no pallor noted. There is no rash noted. Head: Normocephalic, atraumatic Eye: Normal conjunctiva, no drainage Ears, Nose, Mouth, and Throat: oral mucosa is moist. Nares patent. Cardiovascular: Regular Rate and Rhythm Respiratory: Patient is in no distress, no accessory muscle use, lungs are clear to auscultation, no wheezing, rales or rhonchi Back: non-tender, no CVA tenderness bilaterally to percussion. GI: Obese and nondistended. He has tenderness on the left side, left upper and left lower quadrant Musculoskeletal: The patient has no evidence of calf tenderness, no pitting edema, symmetrical pulses noted bilaterally Neurological: A&O, normal speech Psychiatric: Cooperative Constitutional Vital Signs, click to edit/add: Last Vital Signs Temp 97.7 F 10/04/23 19:39 Pulse 65 10/04/23 19:39 Resp 24 H 10/04/23 19:39 BP 180/100 H 10/04/23 19:39 Pulse Ox 98 10/04/23 19:39 O2 Del Method Room Air 10/04/23 19:39 Course Vital Signs Vital signs: Vital Signs Temperature 97.7 F 10/04/23 19:39 Pulse Rate 65 10/04/23 19:39 Respiratory Rate 24 H 10/04/23 19:39 Blood Pressure 180/100 H 10/04/23 19:39 Pulse Oximetry 98 10/04/23 19:39 Oxygen Delivery Method Room Air 10/04/23 19:39 Temperature 97.7 F 10/04/23 19:39 Pulse Rate 65 10/04/23 19:39 Respiratory Rate 24 H 10/04/23 19:39 Blood Pressure 180/100 H 10/04/23 19:39 Pulse Oximetry 98 10/04/23 19:39 Oxygen Delivery Method Room Air 10/04/23 19:39 MDM - Abdominal Pain MDM Narrative Medical decision making narrative: 9 x 7 x 9 mm stone is found in the left ureter at the L5 level with hydronephrosis. He is quite uncomfortable and has had the need for repeated doses of pain medication. No evidence of UTI but he is given IV Ancef. I have spoken to Dr. Miramontes and he is being admitted for probable procedure tomorrow. Treatment diagnosis and disposition were discussed with the patient and his . Differential Diagnosis Differential diagnosis: Likely calculus of kidney, constipation, diverticulitis, gastroenteritis and small bowel obstruction Lab Data Attestation: I reviewed the patient's lab results. Labs: Lab Results 10/04/23 10/04/23 10/04/23 Range/Units 19:45 20:30 20:32 WBC 11.6 H (4.0-11.0) 10^3/uL RBC 4.99 (4.70-6.10) 10^6/uL Hgb 15.9 (14.0-18.0) g/dL Hct 46.3 (42.0-54.0) % MCV 92.8 (80.0-94.0) fL MCH 31.9 (25.9-34.0) pg MCHC 34.3 (29.9-35.2) g/dL RDW 13.2 (11.0-15.0) % Plt Count 183 (150-450) 10^3/uL MPV 13.2 (9.5-13.5) fL Neut % (Auto) 82.7 H (43.0-75.0) % Lymph % (Auto) 8.1 L (20.5-60.0) % Oliver % (Auto) 7.7 (1.7-12.0) % Eos % (Auto) 0.9 (0.9-7.0) % Baso % (Auto) 0.3 (0.2-2.0) % Neut # (Auto) 9.6 H (1.4-6.5) 10^3/uL Lymph # (Auto) 0.9 L (1.2-3.8) 10^3/uL Oliver # (Auto) 0.9 H (0.3-0.8) 10^3/uL Eos # (Auto) 0.1 (0.0-0.7) 10^3/uL Baso # (Auto) 0.0 (0.0-0.1) 10^3/uL Abs Immat Gran (auto) 0.03 (0.00-0.03) 10^3/uL Imm/Tot Granulo (auto) 0.3 (0.0-0.5) % Sodium 140 (136-145) mmol/L Potassium 4.2 (3.5-5.1) mmol/L Chloride 105 (98-107) mmol/L Carbon Dioxide 25.7 (21.0-32.0) mmol/L Anion Gap 13.5 BUN 17.0 (7.0-18.0) mg/dL Creatinine 1.27 (0.70-1.30) mg/dL Est GFR ( Amer) >60 (>=60) Est GFR (Non-Af Amer) 55 L (>=60) BUN/Creatinine Ratio 13.4 Glucose 146 H (74-106) mg/dL Calcium 9.3 (8.5-10.1) mg/dL Total Bilirubin 0.7 (0.2-1.0) mg/dL Direct Bilirubin 0.1 (0.0-0.2) mg/dL AST 18 (15-37) U/L ALT 32 (16-63) U/L Alkaline Phosphatase 114 (46-116) U/L Total Protein 6.6 (6.4-8.2) g/dL Albumin 3.7 (3.4-5.0) g/dL Globulin 2.9 g/dL Albumin/Globulin Ratio 1.3 Amylase 63 (25-115) U/L Lipase 42.0 (16.0-77.0) U/L Urine Color Yellow (YELLOW) Urine Clarity Clear (CLEAR) Urine pH 6.5 (5.0-9.0) Ur Specific [place] 1.025 (1.005-1.025) Urine Protein Negative (NEG/TRACE) mg/dL Urine Glucose (UA) Negative (NEGATIVE) mg/dL Urine Ketones Negative (NEGATIVE) mg/dL Urine Occult Blood Moderate A (NEGATIVE) Urine Nitrite Negative (NEGATIVE) Urine Bilirubin Negative (NEGATIVE) Urine Urobilinogen 0.2 (0.2-1.0) EU/dL Ur Leukocyte Esterase Negative (NEGATIVE) Urine RBC 10-20 A (0-2) #/HPF Urine WBC None seen (NONE SEEN) #/HPF Ur Squamous Epith Cells Few A (NONE/RARE) #/LPF Urine Crystals None seen (None Seen) #/HPF Urine Bacteria None seen (NONE SEEN) #/HPF Urine Casts None seen (NONE SEEN) #/LPF Urine Mucus None seen (NONE SEEN) Ur Culture Indicated? No Imaging Data CT scan - abdomen: Radiologist's impression: ITS Impressions Abdomen/Pelvis CT 10/04/23 20:55 IMPRESSION: 1. Moderate left hydroureteronephrosis and perinephric/periureteral edema secondary to a 9 x 7 x 9 mm stone located at the left mid ureter near the L5 lumbar level. 2. Multiple 3-10 mm nonobstructing bilateral inferior renal stones (2 calculi at the left inferior kidney and 3 calculi at the right mid to inferior kidney). Numerous bilateral parapelvic renal cysts and renal cortical cystic structures. 3. 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 4. Extensive colonic diverticula. Electronically authenticated by: HANNY BARBOUR Date: 10/04/2023 22:09 Discharge Plan Discharge Chief Complaint: Abdominal Pain Clinical Impression: Hydronephrosis, Renal colic, Calculus of kidney Patient Disposition: Admitted as Observation Time of Disposition Decision: 22:23 Condition: Good
[2023-10-04 19:58] VITALS: PULSE 62
[2023-10-04 20:04] LABS: Basophils Percent Auto 0.3 % (0.2-2.0); Eosinophils Absolute Auto 0.1 10^3/uL (0.0-0.7); Eosinophils Percent Auto 0.9 % (0.9-7.0); Hematocrit 46.3 % (42.0-54.0); Hemoglobin 15.9 g/dL (14.0-18.0); Immature Granulocytes Abs Auto 0.03 10^3/uL (0.00-0.03); Immature Granulocytes Pct Auto 0.3 % (0.0-0.5); Lymphocytes Absolute Auto 0.9 10^3/uL (1.2-3.8); Lymphocytes Percent Auto 8.1 % (20.5-60.0); Mean Corpuscular HGB Conc 34.3 g/dL (29.9-35.2); Mean Corpuscular Hemoglobin 31.9 pg (25.9-34.0); Mean Corpuscular Volume 92.8 fL (80.0-94.0); Mean Platelet Volume 13.2 fL (9.5-13.5); Monocytes Absolute Auto 0.9 10^3/uL (0.3-0.8); Monocytes Percent Auto 7.7 % (1.7-12.0); Neutrophils Absolute Auto 9.6 10^3/uL (1.4-6.5); Neutrophils Percent Auto 82.7 % (43.0-75.0); Platelet Count 183 10^3/uL (150-450); Red Blood Count 4.99 10^6/uL (4.70-6.10); Red Cell Distribution Width 13.2 % (11.0-15.0); White Blood Count 11.6 10^3/uL (4.0-11.0)
[2023-10-04 20:43] LABS: Bilirubin Urine NEGATIVE (NEGATIVE); Blood Urine MODERATE (NEGATIVE); Clarity Urine CLEAR (CLEAR); Color Urine YELLOW (YELLOW); Glucose Urine UA NEGATIVE (NEGATIVE); Ketones Urine NEGATIVE (NEGATIVE); Leukocyte Esterase Urine NEGATIVE (NEGATIVE); Nitrite Urine NEGATIVE (NEGATIVE); Protein Urine NEGATIVE (NEG/TRACE); Specific Gravity Urine 1.025 (1.005-1.025); Urobilinogen Urine 0.2 EU/dL (0.2-1.0); pH Urine 6.5 (5.0-9.0)
[2023-10-04 20:51] LABS: Bacteria Urine NONE SEEN #/HPF (NONE SEEN); Cast Seen? NONE SEEN #/LPF (NONE SEEN); Crystals Seen? None Seen #/HPF (None Seen); Mucus Urine NONE SEEN (NONE SEEN); Squamous Epithelial Cell Urine FEW #/LPF (NONE/RARE); Urine Culture Indicated NO; WBC Urine NONE SEEN #/HPF (NONE SEEN)
--- NOTE | 2023-10-04 20:55 | CT_ITS ---
The [address] [address] Patient Name: RUBI FLORES MRN: [id number] date: 1945 Sex: M Assigned Patient Location: ER Current Patient Location: ER Accession/Order Number: [id number] Exam Date: 10/04/2023 21:30 Report Date: 10/04/2023 22:09 At the request of: BORA WEAVER Procedure: CT abdomen pelvis wo con EXAM: CT abdomen pelvis wo con HISTORY: left flank pain, r/o stone COMPARISON: No comparison abdominal imaging available at the time of dictation. Prior CT chest 12/17/2020 TECHNIQUE: Multiple axial views CT abdomen pelvis without IV contrast. Coronal sagittal reformats performed. FINDINGS: Visualized lung bases demonstrate moderate bibasilar linear lung atelectasis and scar. Visualized cardiac apex demonstrates cardiomegaly. Small hiatal hernia. Liver, gallbladder, pancreas, spleen, adrenal glands, and appendix are unremarkable by noncontrast exam. Moderate left hydroureteronephrosis and perinephric/periureteral edema secondary to a 9 x 7 x 9 mm stone located at the left mid ureter near the L5 lumbar level. Multiple 3-10 mm nonobstructing bilateral inferior renal stones (2 calculi at the left inferior kidney and 3 calculi at the right mid to inferior kidney). Numerous bilateral parapelvic renal cysts and renal cortical cystic structures. For reference, a bilobed right inferior renal cortical cystic structure measuring 8.1 cm (image 62 series 5). The underdistended urinary bladder is without discrete wall thickening, radiopaque urinary bladder stone, or perivesical stranding. The prostate is not seen. Extensive colonic diverticula without pericolonic inflammatory stranding. Moderate amount of fluid within the nondistended stomach. No perigastric extraluminal free fluid/free air. No evidence for small bowel obstruction, large ascites, or free air. Multiple small umbilical and periumbilical fat-containing hernia without bowel protrusion. Moderate amount of scattered atherosclerotic calcifications of the abdominal aorta and bilateral iliac arteries. 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 Scattered arthritic changes of the visualized bony structures and multilevel lumbar spondylosis. Multilevel disc herniation, facet arthropathy, and ligamentum flavum thickening greatest at L4-L5 and L5-S1 with moderate bony spinal canal narrowing at these levels. CT/CT abdomen pelvis wo con IMPRESSION: 1. Moderate left hydroureteronephrosis and perinephric/periureteral edema secondary to a 9 x 7 x 9 mm stone located at the left mid ureter near the L5 lumbar level. 2. Multiple 3-10 mm nonobstructing bilateral inferior renal stones (2 calculi at the left inferior kidney and 3 calculi at the right mid to inferior kidney). Numerous bilateral parapelvic renal cysts and renal cortical cystic structures. 3. 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 4. Extensive colonic diverticula. Electronically authenticated by: HANNY BARBOUR Date: 10/04/2023 22:09
[2023-10-04 20:59] LABS: Alanine Aminotransferase 32 U/L (16-63); Albumin Globulin Ratio 1.3; Albumin Level 3.7 g/dL (3.4-5.0); Alkaline Phosphatase 114 U/L (46-116); Amylase 63 U/L (25-115); Anion Gap 13.5; Aspartate Amino Transferase 18 U/L (15-37); BUN Creatinine Ratio 13.4; Bilirubin Direct 0.1 mg/dL (0.0-0.2); Bilirubin Total 0.7 mg/dL (0.2-1.0); Calcium 9.3 mg/dL (8.5-10.1); Carbon Dioxide 25.7 mmol/L (21.0-32.0); Chloride 105 mmol/L (98-107); Estimated GFR (African America >60 (>=60); Estimated GFR (Non-African Ame 55 (>=60); Globulin 2.9 g/dL; Glucose 146 mg/dL (74-106); Potassium 4.2 mmol/L (3.5-5.1); Sodium 140 mmol/L (136-145); Total Protein 6.6 g/dL (6.4-8.2)
[2023-10-04] MEDS: ONDANSETRON PF 4 MG/2 ML VIAL IV (21:23)
[2023-10-04] MEDS: MORPHINE SULFATE 4 MG/ML VIAL 2 MG IV (21:23)
[2023-10-04] MEDS: MORPHINE SULFATE 4 MG/ML VIAL IV (22:17)
[2023-10-04] MEDS: CEFAZOLIN SODIUM/DEXTROSE,ISO 1 GM/50 ML IV.SOLN IV (22:34)
[2023-10-04 22:35] VITALS: BP 161/74; PULSE 73; TEMP 36.7; O2SAT 88
[2023-10-04] MEDS: HYDROMORPHONE HCL 1 MG/ML CARTRIDGE IV (22:59)
[2023-10-04 23:17] VITALS: BP 161/74; PULSE 73; TEMP 36.7; O2SAT 93; BMI 33.9
--- OUTSIDE RECORDS SUMMARY | 2023-10-04 23:18 | XMS_ITS | CCD ---
Author Organization [facility] [place] Care Team Providers Care Bpm Analyst Name Role Phone Brunilda Ly DO Primary Care Provider [phone] SAMSA ., ANA Attending Unavailable SAMSA ., [...] Unavailable Brunilda Ly DO Primary Care Provider [phone] Mak Hubbard Primary Care Physician SRINIVASAN RAHMAN [...] Facility (3 sources) Codeine Drug Allergy 2 [facility] ([facility] sources) Penicillins; Translations: [penicillins] Propensity to adverse reactions to drug 5 Cutaneous eruption (morphologic abnormality) [facility] [employer] Work Phone: (3 sources) Sulfonamides (Antibiotic) Propensity to adverse reactions to drug 2 [email or web address] Phone: (3 sources) oxyCODONE; Translations: [oxycodone] Drug Allergy [facility] (1 source) Codeine Drug Allergy 5 [facility] (2 sources) Sulfonamides (Antibiotic); Translations: [sulfa drugs] Propensity to adverse reactions to drug [facility] [place] Medications Current Medications Medication Drug Class(es) Dates [...] qAM, # 90 tab(s), Refills(s) 0, Pharmacy: [facility] #[facility], 173, cm, 07/06/23 13:18:00 EST, Height/Length [...] nutritional; endocrine; and metabolic disorders (5 sources) Kqgtx-0-uruxrqdjtxu deficiency; Translations: [YENBH-1-TYAHTEEZTBK DEFICIENCY] Onset: 09-09-2022 Chronic Other skin disorders [...] these instructions at home: Medicines ? Take vubd-ysi-sxmtrew and prescription medicines only as told by [...] through you (more content not included)... Normal [facility] OPERATIVE REPORTon OPERATIVE REPORT [address] [address] OPERATIVE REPORT PATIENT NAME: RUBI FLORES : 1945 MED REC NO: [id number] ROOM: ACCOUNT NO: [id number] ADMIT DATE: 07/08/2023 PROVIDER: Srinivasan Rahman DPM DATE OF PROCEDURE: 07/08/2023 SURGEON: Srinivasan Rahman DPM. RESPIRATORY CARE PRACTITIONER: Gabby. PREOPERATIVE DIAGNOSIS: Left foot fifth digit [...] all correct. 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 - NEGATIVE FOR OSTEOMYELITIS AND MALIGNANCY. Andrew Norton M.D. Electronically Signed Out [facility]/07/09/2023 Clinical Information Pre-op Diagnosis: MASS OF [...] Microscopic Description Microscopic examination performed. Processing Lab: [address] [address] Interpretation Performed at [address] [place] [address] SURGICAL PATHOLOGY CONSULTATION Patient Name: RUBI FLORES Med Rec: [id number] [facility] ANATOMIC PATHOLOGY [address] [place] [address]. [place], [place] [address] [facility] Ambulatory Visit Summaryon 0 07-06-2023 Ambulatory Visit [...] MORALES, Andre Frazier Where: [facility] CBC w/ Auto Diffon 4 Basophil Absolute 0.0 E9/L Normal 0.0-0.2 [facility] Comment on above: Performed By: #### 1 [id number], 1928699, 21606115, 6263008 #### [facility] [address] [place] [address] Basophils/100 WBC (Bld) 0.7 % Normal 0.0-2.0 [facility] Comment on above: Performed By: #### 1 7527248, 8088927, 51347574, 5142299 #### [facility] [address] [place] [address] Eos Absolute 0.2 E9/L Normal 0.0-0.5 [facility] Comment on above: Performed By: #### 1 2835595, 7765920, 39979649, 7000613 #### [facility] [address] [place] [address] Eosinophils/100 WBC (Bld) 3.1 % Normal 0.0-8.0 [facility] Comment on above: Performed By: #### 1 3018555, 6562650, 93812208, 3996599 #### [facility] [address] [place] [address] Erythrocyte distribution width (RBC) [Ratio] 13.9 % Normal 10.9-14.2 [facility] Comment on above: Performed By: #### 1 6872526, 7543084, 25218012, 4867422 #### [facility] [address] [place] [address] Hematocrit (Bld) [Volume fraction] 47.0 % Normal 37.7-49.0 [facility] Comment on above: Performed By: #### 1 2114267, 7591466, 33489165, 5756977 #### [facility] [address] [place] [address] Hemoglobin (Bld) [Mass/Vol] 15.5 g/dL Normal 13.5-17.5 [facility] Comment on above: Performed By: #### 1 8121537, 3206661, 33906532, 2539032 #### [facility] [address] [place] [address] Lymph Absolute 1.1 E9/L Normal 1.0-4.0 [facility] Comment on above: Performed By: #### 1 9967688, 1716781, 82599865, 5484593 #### [facility] [address] [place] [address] Lymphocytes/100 WBC (Bld) 17.4 % Normal 14.0-50.0 [facility] Comment on above: Performed By: #### 1 5136673, 6441953, 69102710, 9601944 #### [facility] [address] [place] [address] MCH (RBC) [Entitic mass] 30.7 pg Normal 27.0-34.0 [facility] Comment on above: Performed By: #### 1 7816778, 1009600, 99004580, 9708919 #### [facility] [address] [place], [place] [address] MCHC (RBC) [Mass/Vol] 33.0 g/dL Normal 31.4-36.0 [facility] Comment on above: Performed By: #### 1 0137642, 0589364, 66966284, 5752581 #### [facility] [address] [place] [address] MCV (RBC) [Entitic vol] 93.1 fL Normal 80.0-100.0 [facility] Comment on above: Performed By: #### 1 9746619, 1593554, 17188134, 2375346 #### [facility] [address] [place] [address] [place] Absolute 0.7 E9/L Normal 0.2-1.0 [facility] Comment on above: Performed By: #### 1 9625295, 5153418, 80942398, 9693020 #### [facility] [address] [place] [address] Monocytes/100 WBC (Bld) 10.5 % Normal 4.0-14.0 [facility] Comment on above: Performed By: #### 1 2133858, 9532965, 15417035, 3581100 #### [facility] [address] [place] [address] Neutro Absolute 4.3 E9/L Normal 2.0-7.5 [facility] Comment on above: Performed By: #### 1 6174664, 2416311, 89659689, 5307621 #### [facility] [address] [place] [address] Neutro Auto 68.3 % Normal 36.0-75.0 [facility] Comment on above: Performed By: #### 1 2653637, 2687134, 11338476, 5308953 #### [facility] [address] [place] [address] Platelet 137.0 E9/L Low 150.0-500.0 [facility] Comment on above: Result Comment: Veri fied with slide review Performed By: #### 1 6953012, 8414560, 21177267, 2417639 #### [facility] [address] [place] [address] Platelet mean volume (Bld) [Entitic vol] 10.3 fL Normal 6.4-10.8 [facility] Comment on above: Performed By: #### 1 1010287, 8410477, 04489814, 5467618 #### [facility] [address] [place] [address] RBC 5.1 E12/L Normal 4.3-5.9 [facility] Comment on above: Performed By: #### 1 3287395, 9654659, 53571218, 4345013 #### [facility] [address] [place] [address] WBC 6.3 E9/L Normal 4.0-11.0 [facility] Comment on above: Result Comment: Veri fied with slide review Performed By: #### 1 9066328, 5211422, 89369544, 5455745 #### [facility] [address] [place] [address] CHEMISTRYOrdered By: SYSTEM SYSTEM on 07-06-2023 Albumin [...] 07-06-2023 Albumin [Mass/Vol] 4.2 g/dL Normal 3.3-5.0 [facility] Comment on above: Performed By: #### 1 6024703, 9166301, 24858868, 9479668 #### [facility] [address] [place] [address] Albumin/Globulin [Mass ratio] 2.1 {ratio} Normal 1.1-2.2 [facility] Comment on above: Performed By: #### 1 5807509, 1706696, 67240438, 1807423 #### [facility] [address] [place] [address] Alk Phos 100 Int._Unit/L High 21-98 [facility] Comment on above: Performed By: #### 1 3707546, 7481284, 28277994, 1703400 #### [facility] [address] [place] [address] ALT 25 Int._Unit/L Normal 6-46 [facility] Comment on above: Performed By: #### 1 0158670, 1310037, 85891019, 6680456 #### [facility] [address] [place] [address] Anion gap [Moles/Vol] 10 mmol/L Normal 6-16 [facility] Comment on above: Performed By: #### 1 4223419, 0152273, 43798379, 6700422 #### [facility] [address] [place] [address] AST 22 Int._Unit/L Normal 5-43 [facility] Comment on above: Performed By: #### 1 9737981, 9048630, 64361873, 3646635 #### [facility] [address] [place] [address] Bili Total 0.6 mg/dL Normal 0.0-1.1 [facility] Comment on above: Performed By: #### 1 1076621, 2161763, 84110026, 9127214 #### [facility] [address] [place] [address] BUN/Creat Ratio 18 No Units Normal 10-20 [facility] Comment on above: Performed By: #### 1 3732253, 3536224, 77781669, 6497330 #### [facility] [address] [place] [address] Calcium [Mass/Vol] 9.3 mg/dL Normal 8.9-11.1 [facility] Comment on above: Performed By: #### 1 6106478, 2057378, 98001715, 0616421 #### [facility] [address] [place] [address] Chloride [Moles/Vol] 105 mmol/L Normal 101-111 [facility] Comment on above: Performed By: #### 1 3206734, 8810694, 21508428, 1637528 #### [facility] [address] [place] [address] CO2 [Moles/Vol] 27 mmol/L Normal 21-31 [facility] Comment on above: Performed By: #### 1 4126675, 3411058, 01875708, 6553728 #### [facility] [address] [place] [address] Creatinine [Mass/Vol] 0.8 mg/dL Normal 0.5-1.3 [facility] Comment on above: Performed By: #### 1 7222064, 3641869, 30078903, 3456790 #### [facility] [address] [place] [address] Globulin (S) [Mass/Vol] 2.0 g/dL Normal 1.4-4.0 [facility] Comment on above: Performed By: #### 1 2108056, 8695226, 22456150, 6492180 #### [facility] [address] [place] [address] Glucose [Mass/Vol] 96 mg/dL Normal 55-199 [facility] Comment on above: Performed By: #### 1 7058450, 7760920, 83579841, 6781127 #### [facility] [address] [place] [address] Potassium [Moles/Vol] 4.4 mmol/L Normal 3.5-5.3 [facility] Comment on above: Performed By: #### 1 0061996, 3486795, 33348397, 3426633 #### [facility] [address] [place] [address] Protein [Mass/Vol] 6.2 g/dL Normal 6.0-7.8 [facility] Comment on above: Performed By: #### 1 0793563, 3854504, 93931463, 3358879 #### [facility] [address] [place] [address] Sodium [Moles/Vol] 138 mmol/L Normal 135-145 [facility] Comment on above: Performed By: #### 1 0872701, 9528255, 45808572, 8610508 #### [facility] [address] [place] [address] Urea nitrogen [Mass/Vol] 14 mg/dL Normal 5-21 [facility] Comment on above: Performed By: #### 1 2072446, 1659772, 71034927, 1176016 #### [facility] [address] [place] [address] Family Medicine Office/Clini c Noteon 07-06-2023 Family [...] needed - Please get your records from [place] Ordered: CBC w/ Auto Diff Comprehensive Metabolic [...] qAM, # 90 tab(s), Refills(s) 0, Pharmacy: [facility] #72, 173, cm, 07/06/23 13:18:00 EST, Height/Length [...] Recorded pneumococcal 23-valent vaccine 03/08/2012 Recorded Normal [facility] Comment on above: Result Comment: Elec [...] Normal 80.0 - 100.0 fL Remisol Heme [place] Absolute 0.7 E9/L Normal 0.2 - 1.0 [...] 07-06 TSH Qn 0.82 m[IU]/L Normal 0.34-5.60 [facility] Comment on above: Performed By: #### 1 4632952, 6635749, 13660472, 8682388 #### [facility] [address] [place] [address] eGFRon 07-06-2023 eGFR 89 mL/min/1.73 m2 Normal >=59 [facility] Comment on above: Order Comment: Order added by Discern Expert. Performed By: #### 1 4693720, 0911090, 42570773, 8002705 #### [facility] [address] [place] [address] EKG 12 LeadOrdered By: Escobar Sanders on 06-30-2023 Atrial Rate 68 BPM [employer] Work Phone: P [place] 87 degrees [employer] [employer] Work Phone: P-R Interval 176 ms [employer] Work Phone: Q-T Interval 426 ms [facility] [employer] Work Phone: QRS Duration 144 ms [facility] Work Phone: QTc Calculation (Bazett) 452 ms [facility] [employer] Work Phone: R [place] -67 degrees [facility] Work Phone: T [place] 15 degrees [facility] Work Phone: Ventricular Rate 68 BPM [facility] [facility] [employer] Work Phone: [facility] Work Phone: EKG 12 Leadon 06-30-2023 Normal sinus rhythm Left axis deviation Right bundle branch block Abnormal ECG No previous ECGs available Confirmed by KARL SANDERS ([id number]) on 06/30/2023 12:04:49 AM [facility] Karl Sanders MD - 06/30/2023 Normal sinus rhythm Left axis deviation Right bundle branch block Abnormal ECG No previous ECGs available Confirmed by KARL SANDERS ([id number]) on 06/30/2023 12:04:49 AM [facility] Basic Metabolic Panelon 06-14 Anion gap [Moles/Vol] 8 mmol/L Low 9 - 17 mmol/L [facility] Calcium [Mass/Vol] 9.3 mg/dL 8.6 - 10. 4 mg/dL [facility] Chloride [Moles/Vol] 106 mmol/L 98 - 10 7 mmol/L [facility] CO2 [Moles/Vol] 25 mmol/L 20 - 31 mmol/L [facility] Creatinine [Mass/Vol] 0.8 mg/dL 0.7 - 1.2 mg/dL [facility] GFR/1.73 sq M.predicted MDRD (S/P/Bld) [Vol rate/Area] - PINF [facility] Comment on above: These results are not [...] [Mass/Vol] 99 mg/dL 70 - 99 mg/dL [facility] Interpretation and review of laboratory results Abnormal [facility] Potassium [Moles/Vol] 4.6 mmol/L 3.7 - 5.3 mmol/L [facility] Sodium [Moles/Vol] 139 mmol/L 135 - 144 mmol/L [facility] Urea nitrogen [Mass/Vol] 17 mg/dL 8 - 23 mg/dL [facility] Urea nitrogen/Creatinine [Mass ratio] 21 mg/mg High 9 - 20 [facility] Basic Metabolic Profon 06-29 Anion gap [Moles/Vol] 8 mmol/L Low 9-17 [facility] Comment on above: Performed By: #### C BC, BMP #### [facility] [address] [place] [address] Volumetric Weigher: Rubi Almaraz MD BUN/CRE Ratio 21 High 9-20 [facility] Comment on above: Performed By: #### C BC, BMP #### [facility] [address] [place], [place] [address] Volumetric Weigher: Rubi Almaraz MD Calcium [Mass/Vol] 9.3 mg/dL Normal 8.6-10.4 [facility] Comment on above: Performed By: #### C BC, BMP #### [facility] [address] [place] [address] Volumetric Weigher: Rubi Almaraz MD Chloride [Moles/Vol] 106 mmol/L Normal 98-107 [facility] Comment on above: Performed By: #### C BARBARA, BMP #### [facility] [address] [place], [place] [address] Volumetric Weigher: Rubi Almaraz MD CO2 [Moles/Vol] 25 mmol/L Normal 20-31 [facility] Comment on above: Performed By: #### C BARBARA, BMP #### [facility] [address] [place], [place] [address] Volumetric Weigher: Rubi Almaraz MD Creatinine [Mass/Vol] 0.8 mg/dL Normal 0.7-1.2 [facility] Comment on above: Performed By: #### C BARBARA, BMP #### [facility] [address] [place] [address] Volumetric Weigher: Rubi Almaraz MD GFR/1.73 sq M.predicted among non-blacks MDRD (S/P/Bld) [Vol rate/Area] mL/min/{1.73_m2} Normal >60 [facility] Comment on above: Result Comment: These [...] Performed By: #### C BC, BMP #### [facility] [address] [place], [place] [address] Volumetric Weigher: Rubi Almaraz MD Glucose [Mass/Vol] 99 mg/dL Normal 70-99 [facility] Comment on above: Performed By: #### C BC, BMP #### [facility] [address] [place] [address] Volumetric Weigher: Rubi Almaraz MD Potassium [Moles/Vol] 4.6 mmol/L Normal 3.7-5.3 [facility] Comment on above: Performed By: #### C BC, BMP #### [address] [place] [address] Volumetric Weigher: Rubi Almaraz MD Sodium [Moles/Vol] 139 mmol/L Normal 135-144 [facility] Comment on above: Performed By: #### C BC, BMP #### [address] [place] [address] Volumetric Weigher: Rubi Almaraz MD Urea nitrogen [Mass/Vol] 17 mg/dL Normal 8-23 [facility] Comment on above: Performed By: #### C BC, BMP #### [facility] [address] [place] [address] [place] [address] Volumetric Weigher: Rubi Almaraz MD CBCon 06-29-2023 Erythrocyte distribution width (RBC) [Ratio] 13.3 % Normal 11.8-14.4 [facility] Comment on above: Performed By: #### C BC, BMP #### [address] [place], [place] [address] Volumetric Weigher: Rubi Almaraz MD Hematocrit (Bld) [Volume fraction] 49.6 % Normal 40.7-50.3 [facility] Comment on above: Performed By: #### C BC, BMP #### [address] [place] [address] Volumetric Weigher: Rubi Almaraz MD Hemoglobin (Bld) [Mass/Vol] 16.6 g/dL Normal 13.0-17.0 [facility] Comment on above: Performed By: #### C BC, BMP #### [address] [place], [place] [address] Volumetric Weigher: Rubi Almaraz MD MCH (RBC) [Entitic mass] 31.7 pg Normal 25.2-33.5 [facility] Comment on above: Performed By: #### C BARBARA, BMP #### [address] [place] [address] Volumetric Weigher: Rubi Almaraz MD MCHC (RBC) [Mass/Vol] 33.5 g/dL Normal 28.4-34.8 [facility] Comment on above: Performed By: #### C BARBARA, BMP #### [address] [place] [address] Volumetric Weigher: Rubi Almaraz MD MCV (RBC) [Entitic vol] 94.7 fL Normal 82.6-102.9 [facility] Comment on above: Performed By: #### C BARBARA, BMP #### [address] [place] [address] Volumetric Weigher: Rubi Almaraz MD NRBC Automated 0.0 per 100 WBC Normal 0.0 [facility] Comment on above: Performed By: #### C BARBARA, BMP #### [address] [place] [address] Volumetric Weigher: Rubi Alamraz MD Platelet mean volume (Bld) [Entitic vol] 12.0 fL Normal 8.1-13.5 [facility] Comment on above: Performed By: #### C BARBARA, BMP #### [facility] [address] [place], [place] [address] Volumetric Weigher: Rubi Almaraz MD Platelets (Bld) [#/Vol] 156 10*3/uL Normal 138-453 [facility] Comment on above: Performed By: #### C BARBARA, BMP #### [facility] [address] [place], [place] [address] Volumetric Weigher: Rubi Almaraz MD RBC (Bld) [#/Vol] 5.24 10*6/uL Normal 4.21-5.77 [facility] Comment on above: Performed By: #### C BARBARA, BMP #### [facility] [address] [place], [place] [address] Volumetric Weigher: Rubi Almaraz MD WBC (Bld) [#/Vol] 6.9 10*3/uL Normal 3.5-11.3 [facility] Comment on above: Performed By: #### C BARBARA, BMP #### [facility] [address] [place], [place] [address] Volumetric Weigher: Rubi Almaraz MD Erythrocyte distribution width (RBC) [Ratio] 13.3 % 11.8 - 14.4 % [facility] Hematocrit (Bld) [Volume fraction] 49.6 % 40.7 - 50.3 % [facility] Hemoglobin (Bld) [Mass/Vol] 16.6 g/dL 13.0 - 17.0 g/dL [facility] MCH (RBC) [Entitic mass] 31.7 pg 25.2 - 33.5 pg [facility] MCHC (RBC) [Mass/Vol] 33.5 g/dL 28.4 - 34.8 g/dL [facility] MCV (RBC) [Entitic vol] 94.7 fL 82.6 - 102.9 fL [facility] Nucleated RBC/100 WBC (Bld) [Ratio] 0.0 % 0.0 per 100 WBC [facility] Platelet mean volume (Bld) [Entitic vol] 12.0 fL 8.1 - 13.5 fL [facility] Platelets (Bld) [#/Vol] 156 10*3/uL [facility] RBC (Bld) [#/Vol] 5.24 10*6/uL 4.21 - 5.7 7 m/uL [facility] WBC other (Bld) [#/Vol] 6.9 [facility] Vital Signs Date Time Vital Sign Value Performing Clinician Facility 07-08-2023 09:45-0500 Diastolic blood pressure 69 mm[Hg] Srinivasan Consolo DPM Work Phone: [facility] 07-08-2023 09:45-0500 Heart rate 59 /min Srinivasan Consolo DPM Work Phone: [facility] 07-08-2023 09:45-0500 Respiratory rate 17 /min Srinivasan Consolo DPM Work Phone: [facility] 07-08-2023 09:45-0500 SaO2% (BldA) [Mass fraction] 95 % Srinivasan Consolo DPM [facility] Phone: [facility] 07-08-2023 09:45-0500 Systolic blood pressure 119 mm[Hg] Srinivasan Consolo DPM Work Phone: [facility] 07-08-2023 09:10-0500 Body temperature 96.91 [degF] Srinivasan Consolo DPM Work Phone: [facility] 07-08-2023 06:33-0500 Body height 177.8 cm Srinivasan Consolo DPM Work Phone: [facility] 07-08-2023 06:33-0500 Body mass index (BMI) [Ratio] 30.39 kg/m2 Srinivasan Consolo DPM Work Phone: [facility] [employer] 07-08-2023 06:33-0500 Body weight 96.07 kg Srinivasan Consolo DPM Work Phone: [facility] [employer] 06-29-2023 08:38-0500 Body height 177.8 cm Srinivasan Consolo DPM Work Phone: [facility] [employer] 06-29-2023 08:38-0500 Body mass index (BMI) [Ratio] 30.71 kg/m2 Srinivasan Consolo DPM Work Phone: [facility] [employer] 06-29-2023 08:38-0500 Body temperature 97.3 [degF] Srinivasan Consolo DPM Work Phone: [facility] [employer] 06-29-2023 08:38-0500 Body weight 97.07 kg Srinivasan Consolo DPM Work Phone: [facility] [employer] 06-29-2023 08:38-0500 Diastolic blood pressure 81 mm[Hg] Srinivasan Consolo DPM Work Phone: [facility] [employer] 06-29-2023 08:38-0500 Heart rate 74 /min Srinivasan Consolo DPM Work Phone: [facility] [employer] 06-29-2023 08:38-0500 Respiratory rate 18 /min Srinivasan Consolo DPM Work Phone: [facility] 06-29-2023 08:38-0500 SaO2% (BldA) [Mass fraction] 96 % Srinivasan Consolo DPM Work Phone: [facility] 06-29-2023 08:38-0500 Systolic blood pressure 160 mm[Hg] Srinivasan Consolo DPM Work Phone: [facility] 04-17-2022 10:22-0400 Blood Pressure Location Andre [facility]RE[facility] 04-17-2022 10:22-0400 Diastolic blood pressure 81 mm[Hg] Andre ORELLANA [facility] 04-17-2022 10:22-0400 Heart rate 71 /min Andre ORELL[facility] 04-17-2022 10:22-0400 Systolic blood pressure 139 mm[Hg] Andre ORELLANA [facility] [place] 11-13-2021 10:17-0400 Diastolic blood pressure 84 mm[Hg] Srinivasan Consolo DPM Work Phone: [facility] [employer] 11-13-2021 10:17-0400 Heart rate 66 /min Srinivasan Consolo DPM Work Phone: [facility] [employer] 11-13-2021 10:17-0400 Respiratory rate 18 /min Srinivasan Consolo DPM Work Phone: [facility] 11-13-2021 10:17-0400 SaO2% (BldA) [Mass fraction] 97 % Srinivasan Consolo DPM Work Phone: [employer] 11-13-2021 10:17-0400 Systolic blood pressure 140 mm[Hg] Srinivasan Consolo DPM Work Phone: [employer] 11-13-2021 08:46-0400 Body height 177.8 cm Srinivasan Consolo DPM Work Phone: [employer] 11-13-2021 08:46-0400 Body mass index (BMI) [Ratio] 30.13 kg/m2 Srinivasan Consolo DPM Work Phone: [employer] 11-13-2021 08:46-0400 Body temperature 96.49 [degF] Srinivasan Consolo DPM Work Phone: [employer] Comment on above: checked 4x 11-13-2021 08:46-0400 Body weight 95.25 kg Srinivasan Consolo DPM Work Phone: [employer] Encounters Encounter Date Encounter Type Care Provider Facility Start: 10-04-2023 ambulatory [facility] Start: 08-30-2023 ambulatory Andre ORELLANA Facility :[facility] Start: 07-08-2023 ambulatory Mak Hubbard Facility: [facility] Start: 07-08-2023 End: 07-08-2023 ambulatory [facility] Start: 07-08-2023 End: 07-08-2023 Subsequent hospital visit by physician Srinivasan Rahman DPM Work Phone: [facility] Comment on above: Mass of skin of toe of left foot Start: 07-06-2023 End: 07-07-2023 ambulatory Mak EZaynab Hubbard Facility[facility] Start: 07-06-2023 End: 07-06-2023 Lab Drop off Mak Hubbard [facility] Start: 06-29-2023 End: 07-04-2023 ambulatory SRINIVASANKENZIE Marks [facility] Start: 06-29-2023 End: 07-03-2023 Subsequent hospital visit by physician Srinivasan Rahman DPM Work Phone: [facility] Start: 06-15-2023 End: 06-16-2023 ambulatory Mak Hubbard Facility:[facility] [place] Start: 10-14-2022 End: 11-11-2022 ambulatory [...] encounter procedure Andre ORELLANA [facility] Start: 04-14-2022 End: 04-15-2022 [...] above: Performed By: #### P SAD #### [facility] [address] [place] [address] Dr. Padmini Parson Start: 02-26-2015 Robot assisted lapar oscopic [...] DTaP/Tdap/Td vaccine (2 - Td or Tdap) [facility] Start: 07-08-2023 End: 07-08-2023 Admission to same day surgery center 07/08/2023 8:00 AM EST - 07/08/2023 9:05 AM EST Surgery [facility] [address] [place] [address] Srinivasan Rahman, DPM [address] [place] [address] TOE HAMMER REPAIR-DISTAL SYNES PROCEDURE 5TH DIDGET [facility] Comment on above: TOE HAMMER REPAIR-DI STAL SYNES PROCEDURE 5TH DIDGET Start: 07-08-2023 End: 07-08-2023 Anesthesia consultation 07/08/2023 8:00 AM EST Anesthesia Event [facility] [address] [place], [place] [id number] Monse Dotson, SCOOPER - FLIGHT SURGEON [address] [address] [address] [place] [address] [facility] Start: 07-08-2023 End: 07-08-2023 Correction [facility] Start: 07-08-2023 Subsequent hospital visit by physician 07/08/2023 8:00 AM EST Hospital Encounter [facility] [address] [place] [address] Srinivasan Rahman, DPM [address] [place] [address] [facility] Start: 05-10-2023 Annual Wellness Visi t (Medicare) Annual Wellness Visit (Medicare) [facility] Start: 02-12-2022 Influenza vaccination Flu vacc ine (Season Ended) [facility] Start: 11-13-2021 End: 11-13-2021 Correction hammertoe FOOT BUNIONECTOMY Bone spur 11/13/2021 9:42 AM EDT [facility] Start: 01-08-2008 Pneumococcal 65+ yea rs Vaccine (1 - PCV) Pneumococcal 65+ years Vaccine (1 - PCV) [facility] Start: 2003 Respiratory Syncytia l Virus (RSV) or age 60 yrs+ (1 - 1-dose 60+ series) Respiratory Syncytial Virus (RSV) or age 60 yrs+ (1 - 1-dose 60+ series) [facility] Start: 1993 Shingles vaccine (1 of 2) Shingles vaccine (1 of 2) [facility] Start: 1983 Prostate specific antigen measurement Prostate Specific Antigen (PSA) Screening or Monitoring [facility] Start: 1962 DTaP/Tdap/Td vaccine (1 - Tdap) DTaP/Tdap/Td vaccine (1 - Tdap) [facility] Start: 1961 Hepatitis C screening Hepatitis C sc reen [facility] Start: 1955 Depression Screen Depression Screen [facility] Start: 01-08-1948 COVID-19 Vaccine (1) COVID-19 Vaccin e (1) [facility] Start: 1943 COVID-19 Vaccine (#1) COVID-19 Vacci ne (#1) [facility] aPTT in Blood by Coagulation assay APTT Lab Routine Mass of skin of toe of left foot Release Upon Ordering for 1 Occurrences starting 07/08/2023 [facility] Comment on above: Release Upon Orderin g for 1 Occurrences starting 07/08/2023 Surgical Pathology Surgical Path ology Lab Routine Mass of skin of toe of left foot Release Upon Ordering for 1 Occurrences starting 07/08/2023 [facility] Work Phone: Comment on above: Release Upon Orderin g for 1 Occurrences starting 07/08/2023 Immunizations Immunization Date Immunization Notes Care Provider Mala gresham 04-09-2023 influenza virus vaccine, unspecified formulation Mak Hubbard [facility] 03-26-2023 pneumococcal 20-alexandre nt conjugate vaccine Mak Hubbard [facility] 03-26-2023 tetanus toxoid, redu pj diphtheria toxoid, and acellular pertussis vaccine, adsorbed Mak Hubbard [facility] 05-26-2019 influenza virus vaccine, unspecified formulation Mak Hubbard [facility] 03-14-2018 influenza virus vaccine, unspecified formulation Mak Hubbard [facility] 03-14-2018 pneumococcal conjuga te vaccine, 13 valent Mak Hubbard [facility] 01-26-2018 pneumococcal conjuga te vaccine, 13 valent Mak Hubbard [facility] 03-08-2012 pneumococcal polysaccharide vaccine, 23 valent Mak Hubbard [facility] NEGATED: Highlighted row has not occurred!04-17-2022 SARS-CoV-2 mRNA (tozinameran 5y-11y) vaccine Andre ORELLANA [facility] [place] Payers Date Payer Category Payer Medicare [id number] 2007 Unknown [id number] 1.2.8 [id number] 1959 Medicare [id number] 1.2 [id number] 1959 Unknown [id number] 1943 Unknown [id number] 2.16.84 0.1.054997.3.579.2.593 1943 Unknown [id number] 2.16.84 0.1.678552.3.579.2.593 1943 Unknown [id number] 2.16.84 0.1.151184.3.579.2.593 1943 Unknown [id number] 2.16.84 0.1.248755.3.579.2.593 1943 Unknown [id number] 2.16.84 0.1.277269.3.579.2.593 1943 Unknown [id number] 2.16.84 0.1.102305.3.579.2.593 1943 Unknown [id number] 2.16.84 0.1.822916.3.579.2.593 1943 Unknown [id number] 2.16.84 0.1.604292.3.579.2.593 1943 Unknown [id number] 2.16.84 0.1.865023.3.579.2.593 1943 Unknown [id number] 2.16.84 0.1.650666.3.579.2.593 1943 Unknown [id number] 2.16.84 0.1.087799.3.579.2.593 1943 Unknown [id number] 2.16.84 0.1.451623.3.579.2.593 1943 Unknown [id number] 2.16.8 40.1.630398.3.579.2.173 1943 Unknown [id number] 2.16.8 40.1.637130.3.579.2.173 1943 Unknown [id number] 2.16.8 40.1.240317.3.579.2.727 1943 Unknown [id number] 2.16.8 40.1.872487.3.579.2.727 1943 Unknown [id number] 2.16.8 40.1.422805.3.579.2.727 1943 Unknown [id number] 2.16.8 40.1.223073.3.579.2.727 1943 Unknown [id number] 2.16.8 40.1.589678.3.579.2.727 Social History Date Type Detail Facility Start: 10-29-2021 End: 07-06-2023 Tobacco smoking status NHIS Never smoked tobacco [email or web address] Phone: Start: 10-29-2021 Tobacco use and exposure Smokeless tobacco non-user [email or web address] Phone: Start: 11-13-2021 End: 07-08-2023 Alcohol intake Ex-drinker (finding) [email or web address] Phone: Start: 1945 Sex Assigned At Not on file B ON [employer] Phone: Start: 11-03-2021 End: 11-13-2021 Exposure to SARS-CoV-2 (event) Not sure [email or web address] Phone: Tobacco smoking status Never [facility] Start: 06-29-2023 Sex Assigned At Male F [facility] Start: 06-29-2023 History of Social function [employer] Functional Status Date Assessment Result Facility 04-17-2022 Functional Status N/A [facility] Clinical Notes 11-13-2021 to 07-08-2023 Eleonora Ownes RN - 07/08/2023 9:52 AM Eleonora Porter [...] Positive for numbness. documented in this encounter [facility] 07-08-2023 [facility] Discharg e instructions Eleonora Owens RN [...] question or concerns please call the office ([phone]). If after hours Dr. Rahman can be reached at [phone] (home) or [phone] (cell phone). documented in this encounter [facility] 06-29-2023 History of Presen t illness Narrative Patient instructed on the pre-operative, intra-operative, and post-operative process. Patient instructed on NPO status. Medication instructions and pre operative instruction sheet reviewed with the patient. CHG skin prep instructions reviewed with patient. [facility] Preadmission Testing Name: Rubi Flores : [...] in PAT? Yes documented in this encounter [facility] 04-17-2022 Hospital Discharg e instructions Patient Education [...] fried and sweet foods. General instructions Take [id number] and prescription medicines only as told by [...] 03/27/2010 Document Revised: 09/21/2019 Document Reviewed: 06/16/2018 [employer] Patient Education 2019 [employer] Follow Up Care 04/18/2021 10:41:15 With:Andre ORELLANA MD, URL Address: [address] [place] [address]- When: Unknown [facility] 11-13-2021 History of Presen t illness Narrative Discharge instructions reviewed with patient. Verbalized understanding and denied any questions. Patient walked with steady gait and use of post op shoe. Patient instructed on the pre-operative, intra-operative, and post-operative process. Medication instructions and pre operative instruction sheet reviewed with the patient. 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 [facility] [employer] Phone: Evaluation + Plan note Future Appointments Appointment Date:04/16/2023 10:15:00 AM Scheduled Provider:Andre ORELLANA MD Location:[facility] Appointment Type:URO Office Visit Diagnostic Tests PendingPSA Total 03/14/23 [facility] Evaluation + Plan note Future Appointments Appointment Date:08/30/2023 09:30:00 AM Scheduled Provider:Andre ORELLANA MD Location:[facility] Appointment Type:URO Office Visit [facility] Evaluation note Diagnosis Mass of skin of toe of left foot documented [facility] this [facility] Narrative No data available for this section [facility] Discharge instructions* Instructions* Joyce Rodney RN [...] question or concerns please call the office ([phone]). If after hours Dr. Rahman can be reached at [phone] (home) or [phone] (cell phone). [facility] [employer] Work Phone: Hospital Discharge instructions No data available for this section [facility] No data available for this section [facility] [place] Reason for visit Narrative* Auth/Cert Specialty Diagnoses / Procedures Referred By Rebecca wadsworth Referred To Contact Diagnoses Calcaneal spur, left SPUR LEFT 5TH DIGIT Procedures IN REPAIR OF HAMMERTOE,ONE FOOT BUNIONECTOMY- EXCISION SPUR L5TH DIGIT Srinivasan Rahman, DPM [address] [place] [address] [facility] [employer] [address] [place] [address] Referral ID Status Reason Start Date Expiration Date Visits Re quested Visits Authorized [id number] 1 1 [employer] Work Phone: Advance Directives No Advanced Directives Records FoundDocuments on File Type Date Recorded Patient [employer]man Expl anation ACP-Advance Directive ACP-Power of Vp Global Summary Purpose Family History No Family History Records Found No data available for this section No Family History Records FoundNo Family History Records Found Additional Source Comments PRN Active and Recently Administ ered Medications (unrecognized section and content) Medication Order 11/11/2021 11/12/2021 11/13/2021 bupivacaine-EPINEPHrine (MARCAINE-w/EPINEPHRINE) 0.5% -1:[id number] 2 mL, lidocaine PF 2 % 2 [...] - Provider: Srinivasan Rahman DPM) lidocaine-EPINEPHrine 2 percent-1:[id number] injection (CANCELED) PRN, Starting on Roberta 07/08/23 at 0901, Until Roberta 07/08/23 at 0918, Intra-op 0901 (Given - Provid er: Srinivasan Rahman DPM) No Frequency Medication Order 07/06/2023 07/07/2023 07/08/2023 BUPivacaine (PF) (MARCAINE) 0.5 % injection 1 dose, Starting on Roberta 07/08/23 at 0734, Until Roberta 07/08/23 at 1944, Denise Santiago: saminet overrPaemla judd Rose: cabinet override 0745 (Due) dexAMETHasone [...] Care Teams (unrecognized sec tion and content) Bpm Analyst Relationship Specialty Start Date End Date Brunilda Ly DO [address] [place] [address] PCP - General 11/12/21 Bpm Analyst Relationship Specialty Start Date End Date Brunilda Ly DO [address] [place] [address] PCP - General 11/12/21 Bpm Analyst Relationship Specialty Start Date End Date Brunilda Ly DO [address] [facility] [place] [address] PCP - General 11/12/21 (unrecognized sect ion and content) No Status Records FoundNo Status Records FoundNo Status Records Found INFORMATION SOURCE (unrecogn ized section and content) DATE CREATED AUTHOR 11/20/2022 [facility] DATE CREATED AUTHOR AUTHOR'S ORGANIZ ATION 07/11/2023 [facility] DATE CREATED AUTHOR AUTHOR'S ORGANIZ ATION 10/03/2023 [facility] Reason for Visit (unrecogniz ed section and content) Specialty Diagnoses / Procedures Referred By Rebecca wadsworth Referred To Contact Diagnoses Mass of skin of toe of left foot Mass of skin of toe of left foot [R22.42] Procedures IN CORRECTION HAMMERTOE TOE HAMMER REPAIR-DISTAL SYNES PROCEDURE 5TH Srinivasan Mcdonough, DPM [address] [place] [address] [facility] [address] [place] [address] Referral ID Status Reason Start Date Expiration Date Visits Re quested Visits Authorized [id number] 1 1 FOR RECORDS PERTAINING TO PATIENTS [...] BE BASED ON THE PRIMARY CLINICAL RECORDS. [facility]. provides no warranty or guarantee of the accuracy or completeness of information in this document.
[2023-10-04] MEDS: 0.9 % SODIUM CHLORIDE 1,000 ML 100 ML IV (23:46)
[2023-10-05] VITALS (58 sets, daily range): BP systolic 123–172; BP diastolic 61–87; PULSE 75–95; TEMP 36.6–36.9; O2SAT 89–97
[2023-10-05] MEDS: MORPHINE SULFATE 2 MG/ML SYRINGE IV ×4 (03:26→13:13)
[2023-10-05 05:18] LABS: Basophils Percent Auto 0.2 % (0.2-2.0); Eosinophils Percent Auto 0.1 % (0.9-7.0); Hematocrit 46.1 % (42.0-54.0); Hemoglobin 15.1 g/dL (14.0-18.0); Immature Granulocytes Abs Auto 0.03 10^3/uL (0.00-0.03); Immature Granulocytes Pct Auto 0.3 % (0.0-0.5); Lymphocytes Absolute Auto 0.7 10^3/uL (1.2-3.8); Mean Corpuscular HGB Conc 32.8 g/dL (29.9-35.2); Mean Corpuscular Hemoglobin 31.2 pg (25.9-34.0); Mean Corpuscular Volume 95.2 fL (80.0-94.0); Mean Platelet Volume 12.6 fL (9.5-13.5); Monocytes Absolute Auto 0.9 10^3/uL (0.3-0.8); Monocytes Percent Auto 7.8 % (1.7-12.0); Neutrophils Absolute Auto 9.4 10^3/uL (1.4-6.5); Neutrophils Percent Auto 85.6 % (43.0-75.0); Platelet Count 146 10^3/uL (150-450); Red Blood Count 4.84 10^6/uL (4.70-6.10)
[2023-10-05 05:38] LABS: Alanine Aminotransferase 30 U/L (16-63); Albumin Globulin Ratio 1.2; Albumin Level 3.4 g/dL (3.4-5.0); Alkaline Phosphatase 107 U/L (46-116); Anion Gap 13.5; Aspartate Amino Transferase 18 U/L (15-37); BUN Creatinine Ratio 14.6; Bilirubin Total 0.7 mg/dL (0.2-1.0); Calcium 8.8 mg/dL (8.5-10.1); Carbon Dioxide 25.8 mmol/L (21.0-32.0); Chloride 105 mmol/L (98-107); Estimated GFR (African America >60 (>=60); Estimated GFR (Non-African Ame 57 (>=60); Globulin 2.8 g/dL; Glucose 134 mg/dL (74-106); Potassium 4.3 mmol/L (3.5-5.1); Sodium 140 mmol/L (136-145); Total Protein 6.2 g/dL (6.4-8.2)
--- NOTE | 2023-10-05 09:00 | P.HP_ITS ---
<Statement entered by Mary Anne Rodriguez, - 10/05/23 13:29> I have also seen and examined patient at the time admission and agree with the above findings and plan of care. HPI H&P: HPI History of Present Illness Chief complaint: abd pain, HYDRONEPHROIS RENAL COLIC CALCULUS KID Narrative: 10/05/23 0875 This is an 78-year-old male patient with a past medical history as outlined below including emphysema/COPD and hypothyroidism; who presented to the ED yesterday evening complaining of severe left flank and back pain. He reports onset of pain yesterday afternoon to his left lower back that then began to radiate into his left lower quadrant. He experienced 1 small emesis prior to arrival in the ED. He presented to the ED for further evaluation as his pain became severe. Workup in the ED revealed hyperglycemia (146), and hematuria with RBCs present but no aline hematuria noted on UA, and no evidence of infection. A CT of the abdomen and pelvis revealed left ureteral obstruction and hydronephrosis from a 9 x 7 x 9 mm obstructing stone. He became slightly hypoxic after receiving narcotic pain medications and was placed on 1 L of oxygen supplementation in the ED. He was admitted late last night in observation to the hospitalist service for obstructive uropathy with urology on consult. At the time of my exam the patient is resting comfortably in bed. He reports that the pain medication prescribed is managing his pain adequately. He denies any further nausea or vomiting. He denies any previous history of renal stones or obstruction. He has been kept n.p.o. since midnight for a possible urology procedure later today. At the time of my exam, Dr. Miramontes, urologist, had not yet seen the patient. Opioid HPI Opioid Management Most Recent Opioid Data: Last Pain Scale 9 10/05/23 13:13 Last Pain Assessment 10/05/23 13:00 Last ED Pain Assessment 10/04/23 22:36 Last MAR Pain Assessment 10/05/23 13:13 Last ORT Total Score 0 10/04/23 23:17 Last ORT Risk Category Low Risk 10/04/23 23:17 Review of Systems ROS Status of ROS 10 or more systems reviewed and unremark able except as noted in history and below PFS PFS Medical History (Updated 10/05/23 @ 12:43 by Mary Shaw NP) Hypothyroidism associated with surgical procedure ?E89.0 - Postprocedural hypothyroidism (ICD-10) Arthritis ?M19.90 - Unspecified osteoarthritis, unspecified site (ICD-10) Hyperthyroidism ?E05.90 - Thyrotoxicosis, unspecified without thyrotoxic crisis or storm (ICD-10) Prostate cancer ?C61 - Malignant neoplasm of prostate (ICD-10) COVID-19 ?U07.1 - COVID-19 (ICD-10) COPD (chronic obstructive pulmonary disease) ?J44.9 - Chronic obstructive pulmonary disease, unspecified (ICD-10) Pneumonia ?J18.9 - Pneumonia, unspecified organism (ICD-10) Surgical History (Updated 11/25/22 @ 10:11 by Kashmir Zhao) History of robot-assisted laparoscopic radical prostatectomy ?Z90.79 - Acquired absence of other genital organ(s) (ICD-10) History of phacoemulsification of cataract of both eyes with intraocular lens implantation ?Z98.41 - Cataract extraction status, right eye (ICD-10) ?Z98.42 - Cataract extraction status, left eye (ICD-10) ?Z96.1 - Presence of intraocular lens (ICD-10) History of hernia repair ?Z98.890 - Other specified postprocedural states (ICD-10) ?Z87.19 - Personal history of other diseases of the digestive system (ICD-10) H/O umbilical hernia repair ?Z98.890 - Other specified postprocedural states (ICD-10) ?Z87.19 - Personal history of other diseases of the digestive system (ICD-10) Hx of colonoscopy (Unknown) ?Z98.890 - Other specified postprocedural states (ICD-10) Family History (Updated 11/25/22 @ 10:30 by Kashmir Zhao) Father Colon cancer Brother Colon cancer Social History (Updated 11/25/22 @ 10:31 by Kashmir Zhao) Smoking status: Never smoker Do you think of yourself as: straight/heterosexual Gender Identity: male Meds Home Medications and Allergies Home Medications ?Medication ?Instructions ?Recorded ?Confirmed ?Type albuterol 90 mcg/actuation aerosol 90 mcg inhalation .1 puff daily 11/25/22 10/04/23 History inhaler alpha-1 proteinase inhib.(hum) 6,000 mg IV .weekly 11/25/22 10/04/23 History 1,000 mg intravenous solution (Prolastin-C) aspirin 81 mg tablet,delayed 81 mg PO DAILY 11/25/22 10/04/23 History release budesonide 160 mcg-glycopyr 9 2 inh inhalation BID 11/25/22 10/04/23 History mcg-formot 4.8 mcg/actuation HFA inhaler (Breztri Aerosphere) levothyroxine 100 mcg tablet 100 mcg PO QAM 10/05/23 10/05/23 History Allergies Allergy/AdvReac Type Severity Reaction Status Date / Time Penicillins Allergy Intermediate Rash Verified 11/25/22 09:55 codeine AdvReac Unknown vertigo Verified 11/25/22 09:55 Exam Constitutional Vital Signs, click to edit/add: Last Vital Signs Temp 97.9 F 10/05/23 04:01 Pulse 76 10/05/23 04:01 Resp 18 10/05/23 04:01 BP 157/87 H 10/05/23 04:01 Pulse Ox 94 L 10/05/23 07:57 O2 Del Method Nasal Cannula 10/05/23 04:01 O2 Flow Rate 1 10/05/23 04:01 Common normals: no apparent distress, oriented x3, alert and well nourished General appearance: cooperative Orientation/consciousness: Yes awake HENKY Common normals: normocephalic, head/scalp atraumatic, hearing grossly normal bilaterally, external nose normal and moist oral mucous membranes Eye Common normals: PERRL, EOMs intact bilaterally, conjunctivae normal and no scleral icterus Alignment: alignment normal Eyelid: eyelids normal Neck & C-Spine Common normals: full ROM, supple and no JVD Chest Common normals: inspection of chest normal Chest: symmetrical chest wall rise Respiratory Common normals: normal respiratory effort, no retractions, no use of accessory muscles and clear to auscultation bilaterally Effort & inspection: able to speak in complete sentences Cardio Common normals: no JVD, regular rate, regular rhythm, S1 normal heart sound, S2 normal heart sound, no gallops, no clicks, no murmurs, no rub and peripheral pulses 2+ throughout GI Common normals: Normal to inspection, nondistended, normoactive bowel sounds present, soft to palpation, no hepatosplenomegaly, no masses and no bruits Palpation: tender Details: LLQ (lateral) and guarding (mild); not rigid and no rebound tenderness present Bladder/kidney exam: bladder normal to palpation and CVA tenderness on the left Back & Pelvis Common normals: thoracic and lumbar spine normal to inspection Extremity Common normals: normal capillary refill and no pedal edema General: normal exam except as noted; no clubbing and no cyanosis Neuro Turney Coma Scale: GCS not evaluated Common normals: CN's II-XII intact bilaterally, moves all extremities, no focal motor deficits and no sensory deficits noted Speech: speech normal Motor exam: strength 5/5 throughout Psych Common normals: mental status grossly normal, thought process normal, affect normal and activity/motor behavior normal Results Labs Labs: Short CBC 10/04/23 10/05/23 Range/Units 19:45 04:26 WBC 11.6 H 11.0 (4.0-11.0) 10^3/uL Hgb 15.9 15.1 (14.0-18.0) g/dL Hct 46.3 46.1 (42.0-54.0) % Plt Count 183 146 L (150-450) 10^3/uL BMP 10/04/23 10/05/23 20:32 04:26 Sodium 140 140 Potassium 4.2 4.3 Chloride 105 105 Carbon Dioxide 25.7 25.8 BUN 17.0 18.0 Creatinine 1.27 1.23 Glucose 146 H 134 H Calcium 9.3 8.8 Liver Function 10/04/23 10/05/23 Range/Units 20:32 04:26 Total Bilirubin 0.7 0.7 (0.2-1.0) mg/dL Direct Bilirubin 0.1 (0.0-0.2) mg/dL AST 18 18 (15-37) U/L ALT 32 30 (16-63) U/L Alkaline Phosphatase 114 107 (46-116) U/L Albumin 3.7 3.4 (3.4-5.0) g/dL Urine 10/04/23 Range/Units 20:30 Urine Color Yellow (YELLOW) Urine Clarity Clear (CLEAR) Urine pH 6.5 (5.0-9.0) Ur Specific [place] 1.025 (1.005-1.025) Urine Protein Negative (NEG/TRACE) mg/dL Urine Glucose (UA) Negative (NEGATIVE) mg/dL Pulse Oximetry Attestation: I have reviewed the pertinent pulse oximetry results. ECG Interpretation: Sinus rhythm Right bundle branch block Left anterior fascicular block Abnormal ECG Compared to ECG of 06/16/2020 No significant changes Imaging CT scan - abdomen: Attestation: I have reviewed the pertinent imaging results. Radiologist's impression: IMPRESSION: 1. Moderate left hydroureteronephrosis and perinephric/periureteral edema secondary to a 9 x 7 x 9 mm stone located at the left mid ureter near the L5 lumbar level. 2. Multiple 3-10 mm nonobstructing bilateral inferior renal stones (2 calculi at the left inferior kidney and 3 calculi at the right mid to inferior kidney). Numerous bilateral parapelvic renal cysts and renal cortical cystic structures. 3. 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 4. Extensive colonic diverticula. Assessment and Plan Assessment and Plan (1) Hydronephrosis concurrent with and due to calculi of kidney and ureter: Assessment and Plan: Acute * Adm observation - low threshold to convert to full inpatient admission pending clinical course * C/S Urology - we appreciate Dr Green's assistance with this pt's care * NPO since midnight for probably interventional procedure * MS IVP q3h PRN for pain * NS at 100/hr for hydration * Ancef x 1 given in ED - no evidence of UTI at this time requiring further ABX * CBC, CMP daily (2) Hypothyroidism associated with surgical procedure: Assessment and Plan: Chronic * Continue home levothyroxine (3) COPD (chronic obstructive pulmonary disease): Assessment and Plan: Chronic * Continue home Breztri, albuterol HFA * PRN Duonebs
[2023-10-05] MEDS: 0.9 % SODIUM CHLORIDE 1,000 ML 100 ML IV (09:53)
--- NOTE | 2023-10-05 10:31 | CM.NOTE ---
Rounds made with Dr. Rodriguez. Awaiting Urology consult and plan of care. Mr. Darnell verbalizes understanding.
[2023-10-05] MEDS: BUDESONIDE 0.5 MG/2 ML AMPULE NEB IH (11:33)
[2023-10-05] MEDS: IPRATROPIUM/ALBUTEROL SULFATE 3 ML AMPUL.NEB IH (11:33)
--- NOTE | 2023-10-05 13:29 | SWNOTE1 ---
SW met with pt to discuss dc needs. Pt lives at home with his . Pt is independent at home and does not use any DME and does not have any home health coming in. Pt has oxygen on now, no O2 at home. Pt does not anticipate any discharge needs at this time. SW to follow as needed. Medicare Outpatient Observation Notice reviewed and discussed with patient. Pt. verbalized understanding and signed the form. Original given to patient and copy placed in patient?s chart.
[2023-10-05] MEDS: LACTATED RINGER'S SOLUTION 1,000 ML 50 ML IV (13:52)
[2023-10-05] MEDS: CEFTRIAXONE 1,000 MG in 0.9 % SODIUM CHLORIDE 50 ML 100 MG IV (15:54)
--- NOTE | 2023-10-05 16:25 | RESP.RT ---
patient in surgery
--- NOTE | 2023-10-05 16:35 | FL_ITS ---
[address] [address] Patient Name: RUBI FLORES MRN: [id number] date: 1945 Sex: M Assigned Patient Location: [place] Current Patient Location: [place] Accession/Order Number: [id number] Exam Date: 10/05/2023 16:11 Report Date: 10/07/2023 09:24 At the request of: DAYANARA ODONNELL Procedure: FL fluoroscopy <1hr NON-READ EXAM: FL fluoroscopy <1hr NON-READ HISTORY: TECHNIQUE: FINDINGS: Please see Operative Report. Electronically authenticated by: RADIOLOGIST NO Date: 10/07/2023 09:24
--- NOTE | 2023-10-05 16:40 | P.CN_ITS ---
Consult Note: HPI Data of Consult Patient: new to practice Consult date: 10/05/23 Requesting Physician: Mary Anne Rodriguez DO Primary Care Provider: CHRISTOPHER OKEEFE Consult Narrative Reason for consult: Obstructing left ureteral calculus Narrative: This 78-year-old gentleman was admitted through the ER with a 9 mm left L5 ureteral calculus causing pain and hydroureteronephrosis with Prakash ureteric edema. His white count was 11,000. His creatinine was 1.2. His urine simply showed red blood cells. He was given pain medications and fluid resuscitation. Urology Was consulted for the above reasons. Upon questioning him further he states that he has never had any stone disease in the past. His CT scan shows a 9 mm L5 stone causing ipsilateral hydroureteronephrosis with periureteric edema. Also, he has bilateral nonobstructing nephrolithiasis more on the left than the right. The largest stone within the kidney is 1 cm in size. There are 2 on the left and approximately 3 on the right. This gentleman also has a history of prostate cancer for which he underwent a radical prostatectomy many years ago. cc:: CC: Mary Anne Rodriguez DO Review of Systems ROS Status of ROS 10 or more systems reviewed and unremark able except as noted in history and below [facility] Medical History Hypothyroidism associated with surgical procedure ?E89.0 - Postprocedural hypothyroidism (ICD-10) Arthritis ?M19.90 - Unspecified osteoarthritis, unspecified site (ICD-10) Hyperthyroidism ?E05.90 - Thyrotoxicosis, unspecified without thyrotoxic crisis or storm (ICD-10) Prostate cancer ?C61 - Malignant neoplasm of prostate (ICD-10) COVID-19 ?U07.1 - COVID-19 (ICD-10) COPD (chronic obstructive pulmonary disease) ?J44.9 - Chronic obstructive pulmonary disease, unspecified (ICD-10) Pneumonia ?J18.9 - Pneumonia, unspecified organism (ICD-10) Surgical History History of robot-assisted laparoscopic radical prostatectomy ?Z90.79 - Acquired absence of other genital organ(s) (ICD-10) History of phacoemulsification of cataract of both eyes with intraocular lens implantation ?Z98.41 - Cataract extraction status, right eye (ICD-10) ?Z98.42 - Cataract extraction status, left eye (ICD-10) ?Z96.1 - Presence of intraocular lens (ICD-10) History of hernia repair ?Z98.890 - Other specified postprocedural states (ICD-10) ?Z87.19 - Personal history of other diseases of the digestive system (ICD-10) H/O umbilical hernia repair ?Z98.890 - Other specified postprocedural states (ICD-10) ?Z87.19 - Personal history of other diseases of the digestive system (ICD-10) Hx of colonoscopy (Unknown) ?Z98.890 - Other specified postprocedural states (ICD-10) Family History Father Colon cancer Brother Colon cancer Social History Smoking status: Never smoker Do you think of yourself as: straight/heterosexual Gender Identity: male Meds Home Medications and Allergies Home Medications ?Medication ?Instructions ?Recorded ?Confirmed ?Type albuterol 90 mcg/actuation aerosol 90 mcg inhalation .1 puff daily 11/25/22 10/04/23 History inhaler alpha-1 proteinase inhib.(hum) 6,000 mg IV .weekly 11/25/22 10/04/23 History 1,000 mg intravenous solution (Prolastin-C) aspirin 81 mg tablet,delayed 81 mg PO DAILY 11/25/22 10/04/23 History release budesonide 160 mcg-glycopyr 9 2 inh inhalation BID 11/25/22 10/04/23 History mcg-formot 4.8 mcg/actuation HFA inhaler (Breztri Aerosphere) levothyroxine 100 mcg tablet 100 mcg PO QAM 10/05/23 10/05/23 History Allergies Allergy/AdvReac Type Severity Reaction Status Date / Time Penicillins Allergy Intermediate Rash Verified 11/25/22 09:55 codeine AdvReac Unknown vertigo Verified 11/25/22 09:55 Exam Narrative Exam Narrative: He is resting comfortably in bed. He is in no acute distress. Afebrile vital signs are stable. Abdomen is soft and tender in the left CVA area. He also has tenderness in the left lower quadrant. No masses are palpable. External genitalia are unremarkable. Constitutional Vital Signs, click to edit/add: Last Vital Signs Temp 98.5 F 10/05/23 13:53 Pulse 86 10/05/23 13:53 Resp 18 10/05/23 13:53 BP 161/76 H 10/05/23 13:53 Pulse Ox 92 L 10/05/23 13:53 O2 Del Method Room Air 10/05/23 13:53 O2 Flow Rate 1 10/05/23 11:34 Results Labs Labs: Short CBC 10/04/23 10/05/23 Range/Units 19:45 04:26 WBC 11.6 H 11.0 (4.0-11.0) 10^3/uL Hgb 15.9 15.1 (14.0-18.0) g/dL Hct 46.3 46.1 (42.0-54.0) % Plt Count 183 146 L (150-450) 10^3/uL BMP 10/04/23 10/05/23 20:32 04:26 Sodium 140 140 Potassium 4.2 4.3 Chloride 105 105 Carbon Dioxide 25.7 25.8 BUN 17.0 18.0 Creatinine 1.27 1.23 Glucose 146 H 134 H Calcium 9.3 8.8 Liver Function 10/04/23 10/05/23 Range/Units 20:32 04:26 Total Bilirubin 0.7 0.7 (0.2-1.0) mg/dL Direct Bilirubin 0.1 (0.0-0.2) mg/dL AST 18 18 (15-37) U/L ALT 32 30 (16-63) U/L Alkaline Phosphatase 114 107 (46-116) U/L Albumin 3.7 3.4 (3.4-5.0) g/dL Urine 10/04/23 Range/Units 20:30 Urine Color Yellow (YELLOW) Urine Clarity Clear (CLEAR) Urine pH 6.5 (5.0-9.0) Ur Specific [place] 1.025 (1.005-1.025) Urine Protein Negative (NEG/TRACE) mg/dL Urine Glucose (UA) Negative (NEGATIVE) mg/dL Assessment and Plan Assessment and Plan (1) Hydronephrosis concurrent with and due to calculi of kidney and ureter: Assessment and Plan: This gentleman has an obstructing 9 mm and left L5 ureteral calculus that is causing him pain and it is requiring hospitalization. He will need to get cys toscopy and left stent placement done in order to unobstruct his left renal unit. I am getting him added onto the OR schedule for today. Thereafter, he will need ureteroscopic laser lithotripsy done on his left ureteral calculus after he has cooled down for a week or 2. Subsequent to that, he then will benefit from left ESWL for his renal calculi and then subsequent right ESWL. Once he has stone and stent free, we then will do a stone metabolic workup to figure out the etiology of his stone formation and help him with future stone prevention. Over 30 minutes of clinical time was spent talking with the ER doctor, the nursing staff, the patient and reviewing the patient's chart and CT scan. Thank you for letting me take part in his care. (2) Hypothyroidism associated with surgical procedure: (3) COPD (chronic obstructive pulmonary disease):
--- NOTE | 2023-10-05 16:52 | P.URON_ITS ---
Urology Surgery Operative Note Operative Note Procedure Date: 10/05/23 Time Out Performed: yes Pre-op Diagnosis: Obstructing left ureteral calculus Post-op Diagnosis: same as pre-op Procedures performed: 1. Cystoscopy. 2. Placement of 6 Stateless variable length left ureteral Stent. Anesthesia: General-LMA Primary Surgeon: Shady Miramontes Complications: None Estimated blood loss (mL): 0 Findings: Large stone at the L5 position superimposing the L5 transverse process Specimens: None Drains: None Indications for Procedures: This gentleman has a 9 mm left L5 ureteral calculus which is obstructing his kidney and causing pain. He has required hospitalization for this pain. He now presents for cystoscopy and left stent placement. He has signed an informed consent after risks were explained. Detailed description of Procedure: The patient was brought to the operating room and placed on the operating room table in the supine position. SCDs were placed on the lower extremities and turned on and functioning during the entire case. Timeout was done by all parties in the room. We all agreed upon the patient's identification and the planned procedures for this patient. Genn. anesthesia was then administered. The patient was then repositioned into the modified dorsal lithotomy position. All pressure points were satisfactorily padded. Genitalia were sterilely prepped and draped in usual fashion. I started by passing a 22 Stateless Olympus cystoscope per urethra and into the bladder. The anterior urethra was normal. The prostatic urethra was absent. Careful panendoscopy in the bladder showed no evidence of any tumors or stones. Moderate trabeculation was noted. I then passed a Glidewire through the scope and cannulated the left ureter. I was able to get the wire all the way up the ureter and into the kidney. There was an immediate E flux of cloudy debris from the left ureter once the wire was placed. I then slid a 6 Stateless variable length left ureteral stent over the wire and up into the kidney. The wire was removed and there were good curls in the kidney and in the bladder. Now there was a high-pressure E flux of cloudy urine coming down through and around the stent. The bladder was drained of its contents and the scope was then removed. The last fluoroscopic image revealed a large stone at the L5 position. The patient was then transferred to a [facility] bed and wheeled to PACU in stable condition.
--- NOTE | 2023-10-08 14:23 | CM.DCFOLLOWU ---
10/07- 1st attempt. No answer
--- NOTE | 2023-10-12 14:45 | CM.DCFOLLOWU ---
3rd attempt follow up call, no answer 10/12/23 3 attempts made, no answer each time
== END 2023-10-05 19:27 | disposition home or self-care (01) ==
LOC: ER 22:24 → MS 23:14
PROVIDERS: Nurse Practitioner Acute Care; Urology; Admitting Provider Family Medicine; Emergency Provider Emergency Medicine; PCP Family Medicine; Visit Provider Family Medicine
PROC: (CPT 52332; principal; 2023-10-05 14:30)
DX: N13.2 Hydronephrosis with renal and ureteral calculous obstruction (principal); E89.0 Postprocedural hypothyroidism; J44.9 Chronic obstructive pulmonary disease, unspecified; M19.90 Unspecified osteoarthritis, unspecified site; Z85.46 Personal history of malignant neoplasm of prostate; Z90.79 Acquired absence of other genital organ(s); Z98.41 Cataract extraction status, right eye; Z98.42 Cataract extraction status, left eye; Z96.1 Presence of intraocular lens; Z98.890 Other specified postprocedural states; Z79.82 Long term (current) use of aspirin; Z79.899 Other long term (current) drug therapy; Z79.890 Hormone replacement therapy
CPT/HCPCS: 52332; 36415; 74176; 76000; 80048; 80053; 80076; 81001; 82150; 83690; 83880; 85025; 93005; 94640; 94761; 96365; 96375; 96376; 99285; G0378; J1094; J1170; J2704

== ENCOUNTER 2023-10-06 07:30 | Outpatient (RCR) | payer MEDICARE, OTHER, SELFPAY ==
[2023-09-15] MEDS: PROTEINASE INHIBITOR IV (14:38)
[2023-09-15] MEDS: ALPHA IV (14:38)
--- NOTE | 2023-09-15 14:39 | PC.NURSE ---
1438: IV Prolastin initiated at this time. Pt. denies needs or c/o.
--- NOTE | 2023-09-15 15:12 | PC.NURSE ---
1509: IV Prolastin completed at this time. IV d/c'd pressure to site. Pt without c/o. D/c'd amb to home.
[2023-09-22 14:05] VITALS: BP 156/73; PULSE 71; TEMP 36.4; O2SAT 93
[2023-09-22] MEDS: PROTEINASE INHIBITOR IV (14:39)
[2023-09-22] MEDS: ALPHA IV (14:39)
[2023-09-29 13:13] VITALS: BP 180/85; PULSE 72; TEMP 36.6; O2SAT 93
--- NOTE | 2023-09-29 13:14 | PC.NURSE ---
1300: Pt. to [facility] amb. for weekly infusion. Weight obtained. Seated in recliner. VSS. IV initiated to left arm. Pt. tolerated with minimal c/o. Declines food or drink.
[2023-09-29] MEDS: PROTEINASE INHIBITOR IV (13:31)
[2023-09-29] MEDS: ALPHA IV (13:31)
--- NOTE | 2023-09-29 14:17 | PC.NURSE ---
1404: IV Prolastin completed at this time without s&s of adverse reaction. IV d/c'd, pressure to site. Pt. d/c'd to home amb.
[2023-10-06 14:32] VITALS: BP 177/63; PULSE 79; TEMP 36.6; O2SAT 92
--- NOTE | 2023-10-06 14:35 | PC.NURSE ---
1430 Arrival ambulatory to chair 1. alert oriented. IV initiated left inner forearm #24 per Jemma Zhao RN, patient tolerated well.
[2023-10-06] MEDS: PROTEINASE INHIBITOR IV (14:47)
[2023-10-06] MEDS: ALPHA IV (14:47)
--- NOTE | 2023-10-06 14:49 | PC.NURSE ---
1447: IV Prolastin initiated at this time.
--- NOTE | 2023-10-06 15:23 | PC.NURSE ---
1521: IV Prolastin infused without s&s of adverse reaction. IV d/c'd, pressure to site. Pt. d/c'd amb. to home.
== END 2023-10-12 23:59 | disposition home or self-care (01) ==
LOC: INF 07:30
PROVIDERS: Visit Provider Internal Medicine
DX: J43.8 Other emphysema (principal); E88.01 Alpha-1-antitrypsin deficiency
CPT/HCPCS: 96365; J0256

== ENCOUNTER 2023-10-12 14:00 | Outpatient (OUT) | payer MEDICARE, OTHER, SELFPAY | END 2023-10-12 14:01 | disposition home or self-care (01) | LOC: PST 14:01 | PROVIDERS: PCP Family Medicine; Visit Provider Urology | DX: Z01.818 Encounter for other preprocedural examination (principal); N20.1 Calculus of ureter; Z79.01 Long term (current) use of anticoagulants ==

== ENCOUNTER 2023-10-25 13:35 | Outpatient (OUT) | payer MEDICARE, OTHER, SELFPAY | END 2023-10-25 13:36 | disposition home or self-care (01) | LOC: PST 13:35 | PROVIDERS: PCP Family Medicine; Visit Provider Urology | DX: Z01.818 Encounter for other preprocedural examination (principal); N20.1 Calculus of ureter; Z79.01 Long term (current) use of anticoagulants ==

== ENCOUNTER 2023-11-04 07:32 | Day surgery (SDC) | payer MEDICARE, OTHER, SELFPAY ==
[2023-11-04] VITALS (8 sets, daily range): BP systolic 139–164; BP diastolic 76–86; PULSE 59–70; TEMP 35.9–36.2; O2SAT 95–97; BMI 31.3
--- NOTE | 2023-11-04 | FL_ITS ---
The [address] [address] Patient Name: RUBI FLORES MRN: [id number] date: 1945 Sex: M [facility]igned [email or web address] Current Patient Location: Accession/Order Number: [id number] Exam Date: 11/04/2023 10:00 Report Date: 11/05/2023 08:17 At the request of: DAYANARA ODONNELL Procedure: FL fluoroscopy <1hr NON-READ EXAM: FL fluoroscopy <1hr NON-READ HISTORY: TECHNIQUE: FINDINGS: Please see Operative Report. Electronically authenticated by: RADIOLOGIST NO Date: 11/05/2023 08:17
--- OUTSIDE RECORDS SUMMARY | 2023-11-04 07:36 | XMS_ITS | CCD ---
[facility] Care Team Providers Care Hood Fitter Name Role Phone Brunilda Ly DO Primary Care Provider [phone] SAMSA ., ANA Attending Unavailable SAMSA ., ANA Admitting Unavailable SAMSA ., ANA Consulting Unavailable MISHernan, DR ENCARNACION Primary Care Unavailable [...] SAMSA ., ANA Attending Unavailable DAVID, DR ECNARNACION Primary Care Unavailable SAMSA ., ANA Admitting [...] Attending Unavailable SAMSA ., ANA Consulting Unavailable DR ALYSHA HERNANDEZ Primary Care Unavailable SAMSA ., ANA Admitting Unavailable SAMSA ., ANA Attending Unavailable SAMSA ., ANA Admitting Unavailable SAMSA ., ANA Consulting Unavailable DR ALYSHA HERNANDEZ Primary Care Unavailable Malachi , Brunilda Primary Care Provider [phone] Mak Hubbard Primary Care Physician [phone] SRINIVASAN KRAMER Attending Unavailable MALACHI, BRUNILDA Primary Care Unavailable MALACHI, BRUNILDA Referring Unavailable SRINIVASAN KRAMER Admitting Unavailable MALACHI, BRUNILDA Primary Care Unavailable SRINIVASAN KRAMER Admitting Unavailable SRINIVASAN KRAMER Attending Unavailable Mak Hubbard Attending Unavailable Mak Hubbard Attending Unavailable Mak Hubbard Attending Unavailable Mak Hubbard Attending Unavailable Andre ORELLANA Attending Unavailable Shady MIRAMONTES Attending Unavailable Mak Hubbard Attending Unavailable Mak Hubbard Admitting Unavailable Mak Hubbard EZaynab Admitting Unavailable Mak Hubbard Attending Unavailable Mak Hubbard Admitting Unavailable Mak Hubbard Attending Unavailable Mak Hubbard EZaynab Admitting Unavailable Mak Hubbard EZaynab Admitting Unavailable Shady MIRAMONTES Attending Unavailable Shady MIRAMONTES Attending Unavailable Shady MIRAMONTES Referring Unavailable Mak Hubbard Attending Unavailable Mak Hubbard Attending Unavailable Allergies Allergy Classification Reported Allergen(s) Allergy Type Date of Onset Reaction(s) Facility (4 sources) Codeine Drug Allergy 10-30-19 22 Hallucinating [facility] (11 sources) Penicillins; Translations: [penicillins] Propensity to adverse reactions to drug 03-10-20 15 Cutaneous eruption (morphologic abnormality) [facility] [employer] Phone: (3 sources) Sulfonamides (Antibiotic) Propensity to adverse reactions to drug 10-30-19 22 [facility] Phone: (6 sources) oxyCODONE; Translations: [oxycodone] Drug Allergy Dizziness [facility] (1 source) Codeine Drug Allergy 03-10-20 15 [facility] (5 sources) Sulfonamides (Antibiotic); Translations: [sulfa drugs] Propensity to adverse reactions to drug [facility] [place] Medications Current Medications Medication Drug Class(es) Dates Sig (Normalized) Sig (Original) ProAir (5 sources) beta2-Adrenergic Agonist Start: 05-04-2017 take 1 puff(s) by inhalation once daily ProAir HFA 1 puff(s), Inhalation, Daily, Refill(s) 0 Start Date: 05/04/17 Status: Ordered alpha 1-proteinase inhibitor, human 1 mg injection (3 sources) Human alpha-1 Proteinase Inhibitor Start: 10-04-2023 inject 1 mg intravenously every week Prolastin-C intravenous injection mg/kg, IV, qWeek, Refills(s) 0 Start Date: 10/04/23 Status: Ordered aspirin 81 mg oral capsule (8 sources) Platelet Aggregation Inhibitor, Nonsteroidal Anti-inflammatory Drug Start: 04-18-2021 take 1 capsule by mouth every four hours aspirin 81 mg oral capsule 81 mg = 1 cap(s), Oral, q4hr Start Date: 04/18/21 Status: Ordered take 1 tablet by mouth once wilfredo y aspirin 81 MG EC tablet Take 1 tablet by mouth daily 0 Active Breztri Aerosphere (4 sources) Start: 07-06-2023 Breztri Aerosp here Refill(s) 0 Start Date: 07/06/23 Status: Ordered 120 actuat budesonide 0.16 mg/actuat / formoterol fumarate 0.0048 mg/actuat / glycopyrrolate 0.009 mg/actuat metered dose inhaler (4 sources) Corticosteroid, beta2-Adrenergic Agonist Start: 10-25-2023 Budesonide-Glycopyr- F ormoterol (Breztri Aerosphere) 160-9-4.8 mcg/actuation HFA aerosol inhaler Active 2 INH INHALATION Twice daily October 25, 2023 12:00am take 2 puff(s) by in halation at bedtime Bxskrtq-Eihnnhlgmjx-Dqtmzfsnwd (BREZTRI AEROSPHERE) 160-9-4.8 MCG/ACT AERO Inhale 2 [...] Start Date: 04/18/21 Status: Ordered levothyroxine sodium 0.1 mg oral tablet (9 sources) l-Thyroxine Start: 10-25-2023 Levothyroxine Active 100 MCG PO October 25, 2023 12:00am Start: 09-22-2023 take 1 tablet by alejo th once daily levothyroxine 100 mcg (0.1 mg) Tab 100 mcg = 1 tab(s), Oral, Daily, # 90 tab(s), Refills(s) 0, Pharmacy: [facility] #[id number], 173, cm, 07/06/23 13:18:00 EST, Height/Length Dosing, 99.5, kg, 07/06/23 13:18:00 EST, Weight Dosing Start Date: 09/22/23 Status: Ordered Start: 07-06-2023 take 1 tablet by alejo th once daily in the morning levothyroxine 25 mcg (0.025 mg) Tab 25 mcg = 1 tab(s), Oral, qAM, # 90 tab(s), Refills(s) 0, Pharmacy: [facility] #[id number], 173, cm, 07/06/23 13:18:00 EST, Height/Length [...] by mouth Daily 0 Active Multi Vitamin+ (5 sources) Start: 12-22-2018 Multi Vitamin+ Refill(s) 0 [...] Date Documented Date Episodic/Chronic Cancer of prostate (10 sources) Personal history of malignant neoplasm of prostate; Translations: [History of malignant neoplasm of prostate] Onset: 04-14-2022 Episodic Cancer of thyroid (5 sources) 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 Chronic obstructive pulmonary disease and bronchiectasis (10 sources) Other emphysema; Translations: [Centrilobular emphysema] Onset: 04-08-2022 Chronic Coagulation and hemorrhagic disorders (3 sources) Thrombocytopenic disorder 07-07-2023 Chronic Genitourinary symptoms and ill-defined conditions (6 sources) Stress incontinence (female) (male); Translations: [Genuine stress incontinence] Onset: 04-17-2022 Chronic Genitourinary symptoms and ill-defined conditions (6 sources) Nocturia; Translations: [Nocturia] Onset: 04-17-2022 Episodic Other circulatory disease (4 sources) Elevated blood-pressure reading without diagnosis of hypertension 07-06-2023 Episodic Other connective tissue disease (4 sources) Pain in toe 07-06-2023 Episodic Other male genital disorders (5 sources) 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 Other nutritional; endocrine; and metabolic disorders (5 sources) Ammwp-8-mznwmdmriya deficiency; Translations: [EDMOM-9-HVWSWRZFHMD DEFICIENCY] Onset: 09-09-2022 Chronic Other nutritional; endocrine; and metabolic disorders (3 sources) Body mass index 30+ - obesity 10-04-2023 Chronic Other skin disorders (1 source) Mass of skin of toe of left foot; Translations: [Localized swelling, mass and lump, left lower limb] 07-08-2023 Episodic Other skin disorders (1 source) Localized swelling, mass and lump, left lower limb; Translations: [Localized swelling, mass and lump, left lower limb] Onset: 07-08-2023 Episodic Thyroid disorders (9 sources) Hypothyroidism 12-22-2018 Chronic Results Test Name Value Interpretation Reference Range Facil ity Consultation Noteon 11-01-19 Consultation Note [id number] #1.00TIFF Normal [facility] Ambulatory Visit Summaryon 0 10-26-2023 Ambulatory Visit Summary RUBI FLORES :1945 Visit Date:10/26/2023 Ambulatory Visit Instructions Your Diagnosis Elevated BP without diagnosis of hypertension BMI 33.0-33.9,adult Class 1 obesity due to excess calories in adult Nonsmoker AAA (abdominal aortic aneurysm) Your Care Team Attending Physician - Mak Hubbard MD. Primary Care Physician - Mak Hubbard MD. This Is Your Medications List albuterol (ProAir HFA) alpha 1-proteinase inhibitor (Prolastin-C intravenous injection) aspirin (aspirin 81 mg oral capsule) budesonide/formotero l/glycopyrrolate (Breztri Aerosphere) levothyroxine (levothyroxine 100 mcg (0.1 mg) Tab) multivitamin (Multi Vitamin+) Procedures Performed Robot assisted laparoscopic radical prostatectomy (02/26/2015), TRUS (transrectal ultrasound) guided cryoablation of prostate (12/06/2014), TURP - Transurethral resection of prostate (06/14/2001), Cataract, Complete thyroidectomy, Cystoscopy, Hydrocelectomy, Repair of incisional hernia. Discharge Vitals Temperature (Temporal Artery) 36.7 ?C Heart Rate (Peripheral) 66 Respiratory Rate 16 Blood Pressure 128/76 Height 171 cm Height 67 in Weight 99.1 kg Weight 218.02 lb BMI 33.89 What to do next Scheduled Follow-Up Appointments Wednesday 2:00 PM EDT With: Mak Hubbard MD. Where: [facility] [address] [id number]- \.br\ Medications\.br\ What How Much When Instructions\.br\ Unchanged albuterol (ProAir HFA) 1 Puffs Inhalation Every day\.br\ Unchanged alpha 1-proteinase inhibitor (Prolastin-C intravenous injection) Intravenous Every week\.br\ Unchanged aspirin (aspirin 81 mg oral capsule) 1 Capsules By Mouth Every 4 hours\.br\ Unchanged budesonide/ formoterol/ glycopyrrolate (Breztri Aerosphere)\.br\ Unchanged levothyroxine (levothyroxine 100 mcg (0.1 mg) Tab) 1 Tablets By Mouth Every day\.br\ Unchanged multivitamin (Multi Vitamin+)\.br\ Allergies\.br\ oxyCODONE (Dizziness)\.br\ penicillins (Rash)\.br\ sulfa drugs\.br\ Problems\.br\ Ongoing - Any problem that you are currently receiving treatment for.\.br\ AAA (abdominal aortic aneurysm)\.br\ BMI 34.0-34.9,adult\. br\ COPD without exacerbation\.br\ Elevated BP without diagnosis of hypertension\.br\ History of prostate cancer\.br\ Hypothyroid\.br\ Nocturia\.br\ Stress incontinence\.br\ Thrombocytopenia\ .br\ Toe pain, left\.br\ Historical - Any problem that you are no longer receiving treatment for.\.br\ Cancer of thyroid, Hurthle cell\.br\ Hypothyroidism\.b r\ Impotence of organic origin\.br\ Patient Survey\.br\ You may receive a survey via text or e-mail asking about your office visit. Please share your experience with us by completing your survey. We appreciate your feedback and thank you for choosing us for your care.\.br\ Education Materials\.br\ BMI for Adults\.br\ What is BMI?\.br\ Body mass index (BMI) is a number that is calculated from a person's weight and height. BMI can help estimate how much of a person's weight is composed of fat. BMI does not measure body fat directly. Rather, it is an alternative to procedures that directly measure body fat, which can be difficult and expensive.\.br\ BMI can help identify people who may be at higher risk for certain medical problems.\.br\ What are BMI measurements used for?\.br\ BMI is used as a screening tool to identify possible weight problems. It helps determine whether a person is obese, overweight, a healthy weight, or underweight.\.br\ BMI is useful for:\.br\ ? \.br\ Identifying a weight problem that may be related to a medical condition or may increase the risk for medical problems.\.br\ ? \.br\ Promoting changes, such as changes in diet and exercise, to help reach a healthy weight. BMI screening can be repeated to see if these changes are working.\.br\ How is BMI calculated?\.br\ BMI involves measuring your weight in relation to your height. Both height and weight are measured, and the BMI is calculated from those numbers. This can be done either in [place] or metric measurements. Note that charts and online BMI calculators are available to help you find your BMI quickly and easily without having to do these calculations yourself.\.br\ To calculate your BMI in [place] measurements:\.br \ \.br\ 1. \.br\ Measure your weight in pounds (lb).\.br\ 2. \.br\ Multiply the number of pounds by 703.\.br\ ? \.br\ For example, for a person who weighs 180 lb, multiply that number by 703, which equals 126,540.\.br\ 3. \.br\ Measure your height in inches. Then multiply that number by itself to get a measurement called inches squared. \.br\ ? \.br\ For example, for a person who is 70 inches tall, the inches squared measurement is 70 inches x 70 inches, which equals 4,900 inches squared.\.br\ 4. \.br\ Divide the total from step 2 (number of lb x 703) by the total from step 3 (inches squared): 126,540 ? 4,900 = 25.8. This is your BMI.\.br\ To calculate your BMI in metric measurements:\.br \ 1. \.br\ Measure your weight in kilograms (kg).\.br\ 2. \.br\ Measure your height in meters (m). Then multiply that number by itself to get a measurement called meters squared. \.br\ ? \.br\ For example, for a person who is 1.75 m tall, the meters squared measurement is 1.75 m x 1.75 m, which is equal to 3.1 meters squared.\.br\ 3. \.br\ Divide the number of kilograms (your weight) by the meters squared number. In this example: 70 ? 3.1 = 22.6. This is your BMI.\.br\ What do the results mean?\.br\ BMI charts are used to identify whether you are underweight, normal weight, overweight, or obese. The following guidelines will be used:\.br\ ? \.br\ Underweight: BMI less than 18.5.\.br\ ? \.br\ Normal weight: BMI between 18.5 and 24.9.\.br\ ? \.br\ Overweight: BMI between 25 and 29.9.\.br\ ? \.br\ Obese: BMI of 30 or above.\.br\ Keep these notes in mind:\.br\ ? \.br\ Weight includes both fat and muscle, so someone with a muscular build, such as an athlete, may have a BMI that is higher than 24.9. In cases like these, BMI is not an accurate measure of body fat.\.br\ ? \.br\ To determine if excess body fat is the cause of a BMI of 25 or higher, further assessments may need to be done by a health care provider.\.br\ ? \.br\ BMI is usually interpreted in the same way for men and women.\.br\ Where to find more information\.br\ For more information about BMI, including tools to quickly calculate your BMI, go to these websites:\.br\ ? \.br\ Centers for Disease Control and Prevention: www.cdc.gov\.br\ ? \.br\ [place] Heart [employer]: www.heart.org\.br \ ? \.br\ National Heart, Lung, and Blood [place]: www.nhlbi.nih.gov \.br\ Summary\.br\ ? \.br\ Body mass index (BMI) is a number that is calculated from a person's weight and height.\.br\ ? \.br\ BMI may help estimate how much of a person's weight is composed of fat. BMI can help identify those who may be at higher risk for certain medical problems.\.br\ ? \.br\ BMI can be measured using [place]ian measurements or metric measurements.\.br \ ? \.br\ BMI charts are used to identify whether you are underweight, normal weight, overweight, or obese.\.br\ This information is not intended to replace advice given to you by your health care provider. Make sure you discuss any questions you have with your health care provider.\.br\ Document Revised: 02/21/2020 Document Reviewed: 12/29/2019 [employer] Patient Education ? 2022 [employer].br\ \.br\ [facility] Family Medicine Office/Clini c Noteon 10-26-2023 Family Medicine Office/Clinic Note HPI Staff Rubi is an 78 year old male presenting for elevated BP, was elevated at [facility] Patient is here for follow up on hypertension. How often are you checking your blood pressure? Daily What are your average readings? 130's/70's _ Yearly BMP: 07/06/23 History of Present Illness - Here for recheck. - No issues today. - Not on meds - Stent in - Has not passed it. Review of Systems PHQ Score Initial Depression Screen Score: 0 SCORE Physical Exam Vitals & Measurements T: 36.7 ?C(Temporal Artery) HR: 66(Peripheral) RR: 16 BP: 128/76 SpO2: 96% HT: 67 in HT: 171 cm WT: 99.1 kg WT: 218.02 lb BMI: 33.89 General: alert, no acute distress ENMT: oral mucosa moist, Cardiovascular: regular rate and rhythm, normal peripheral perfusion Respiratory: Lungs CTA, respirations non labored Extremities: no deformity, no trauma Neurological: oriented x 4, LOC appropriate for age, CN II-XII intact, motor strength equal & normal bilaterally, speech normal Abdomen: Soft, Nontender, Non-distended, + BS Assessment/Plan 1. Elevated BP without diagnosis of hypertension (R03.0: Elevated blood-pressure reading, without diagnosis of hypertension) - Resolved - No issues at this time. 2. BMI 33.0-33.9,adult (Z68.33: Body mass index [BMI] 33.0-33.9, adult) - BMI education given 3. Class 1 obesity due to excess calories in adult (E66.09: Other obesity due to excess calories) - Diet and exercise advised 4. Nonsmoker (Z78.9: Other specified health status) - Please stop smoking 5. AAA (abdominal aortic aneurysm) (I71.40: Abdominal aortic aneurysm, without rupture, unspecified) - Seeing vascular - Need records. - Follow up PRN Follow-up No qualifying data available Patient Education BMI for Adults Problem List/Past Medical History Ongoing AAA (abdominal aortic aneurysm) BMI 34.0-34.9,adult COPD without exacerbation History of prostate cancer Hypothyroid Nocturia Stress incontinence Thrombocytopenia Toe pain, left Historical Cancer of thyroid, Hurthle cell Hypothyroidism Impotence of organic origin Procedure/Surgical History Robot assisted laparoscopic radical prostatectomy (02/26/2015), TRUS (transrectal ultrasound) guided cryoablation of prostate (12/06/2014), TURP - Transurethral resection of prostate (06/14/2001), Cataract, Complete thyroidectomy, Cystoscopy, Hydrocelectomy, Repair of incisional hernia. Medications aspirin 81 mg oral capsule, 81 mg= 1 cap(s), Oral, q4hr Breztri Aerosphere levothyroxine 100 mcg (0.1 mg) Tab, 100 mcg= 1 tab(s), Oral, Daily Multi Vitamin+ ProAir HFA, 1 puff(s), Inhalation, Daily Prolastin-C intravenous injection, IV, qWeek Allergies oxyCODONE (Dizziness) penicillins (Rash) sulfa drugs Social History Alcohol - Denies Alcohol Use, 12/22/2018 Substance Abuse - Denies Substance Abuse, 10/04/2023 Tobacco Never (less than 100 in lifetime) Tobacco Use:. Never Smokeless Tobacco Use:., 10/26/2023 Family History Cancer: Mother. Colon cancer stage 4: Father. Colon cancer, stage 2: Brother. Immunizations Vaccine Date Status Comments influenza virus vaccine, inactivated 04/09/2023 Recorded diphtheria/pertussis , acel/tetanus adult 03/26/2023 Recorded pneumococcal 20-valent conjugate vaccine 03/26/2023 Recorded SARS-CoV-2 mRNA (totazn 5y-11y) vac - Not Given Postpone due to refusal influenza virus vaccine, inactivated 05/26/2019 Recorded pneumococcal 13-valent vaccine 03/14/2018 Recorded influenza virus vaccine, inactivated 03/14/2018 Recorded pneumococcal 13-valent vaccine 01/26/2018 Recorded pneumococcal 23-valent vaccine 03/08/2012 Recorded [facility] Comment on above: Result Comment: Elec tronically Signed By: Stevie MORALES, Mak [place].br\Date and Time Signed: 10/26/23 13:33 EDT Living Will/POAon 10-26-2023 Living Will/POA [id number]# 1.00TIFF [facility] Patient Educationon 10-26-19 Patient Education Nutrition BMI for Adults What is BMI? Body mass index (BMI) is a number that is calculated from a person's weight and height. BMI can help estimate how much of a person's weight is composed of fat. BMI does not measure body fat directly. Rather, it is an alternative to procedures that directly measure body fat, which can be difficult and expensive. BMI can help identify people who may be at higher risk for certain medical problems. What are BMI measurements used for? BMI is used as a screening tool to identify possible weight problems. It helps determine whether a person is obese, overweight, a healthy weight, or underweight. BMI is useful for: ? Identifying a weight problem that may be related to a medical condition or may increase the risk for medical problems. ? Promoting changes, such as changes in diet and exercise, to help reach a healthy weight. BMI screening can be repeated to see if these changes are working. How is BMI calculated? BMI involves measuring your weight in relation to your height. Both height and weight are measured, and the BMI is calculated from those numbers. This can be done either in [place] or metric measurements. Note that charts and online BMI calculators are available to help you find your BMI quickly and easily without having to do these calculations yourself. To calculate your BMI in [place] measurements: 1. Measure your weight in pounds (lb). 2. Multiply the number of pounds by 703. ? For example, for a person who weighs 180 lb, multiply that number by 703, which equals 126,540. 3. Measure your height in inches. Then multiply that number by itself to get a measurement called inches squared. ? For example, for a person who is 70 inches tall, the inches squared measurement is 70 inches x 70 inches, which equals 4,900 inches squared. 4. Divide the total from step 2 (number of lb x 703) by the total from step 3 (inches squared): 126,540 ? 4,900 = 25.8. This is your BMI. To calculate your BMI in metric measurements: 1. Measure your weight in kilograms (kg). 2. Measure your height in meters (m). Then multiply that number by itself to get a measurement called meters squared. ? For example, for a person who is 1.75 m tall, the meters squared measurement is 1.75 m x 1.75 m, which is equal to 3.1 meters squared. 3. Divide the number of kilograms (your weight) by the meters squared number. In this example: 70 ? 3.1 = 22.6. This is your BMI. What do the results mean? BMI charts are used to identify whether you are underweight, normal weight, overweight, or obese. The following guidelines will be used: ? Underweight: BMI less than 18.5. ? Normal weight: BMI between 18.5 and 24.9. ? Overweight: BMI between 25 and 29.9. ? Obese: BMI of 30 or above. Keep these notes in mind: ? Weight includes both fat and muscle, so someone with a muscular build, such as an athlete, may have a BMI that is higher than 24.9. In cases like these, BMI is not an accurate measure of body fat. ? To determine if excess body fat is the cause of a BMI of 25 or higher, further assessments may need to be done by a health care provider. ? BMI is usually interpreted in the same way for men and women. Where to find more information For more information about BMI, including tools to quickly calculate your BMI, go to these websites: ? Centers for Disease Control and Prevention: www.cdc.gov ? [place] [employer]: www.heart.org ? National Heart, Lung, and Blood [place]: www.nhlbi.nih.gov Summary ? Body mass index (BMI) is a number that is calculated from a person's weight and height. ? BMI may help estimate how much of a person's weight is composed of fat. BMI can help identify those who may be at higher risk for certain medical problems. ? BMI can be measured using [place]ian measurements or metric measurements. ? BMI charts are used to identify whether you are underweight, normal weight, overweight, or obese. This information is not intended to replace advice given to you by your health care provider. Make sure you discuss any questions you have with your health care provider. Document Revised: 02/21/2020 Document Reviewed: 12/29/2019 [employer] Patient Education ? 2022 [employer] [facility] Physician Referralon 024 Physician Referral [id number] #1.00TIFF [facility] Population Healthon 10-12-19 24 [facility] Health Case Information Case Priority: None Programs: -- Referral Source: Sales Order Processor Referral Reason: Care coordination Case Type: Transition Care Management Risk Score: -- Case Status: Enrolled (October 07, 2023) Date Assigned: October 07, 2023 Assigned By: Kashmir Hess Date Enrolled: October 07, 2023 Assigned Primary Personnel: Kashmir Hess Assigned Secondary Personnel: -- Case Physician: Mak Hubbard MD Ongoing BMI 34.0-34.9,adult COPD without exacerbation Elevated BP without diagnosis of hypertension History of prostate cancer Hypothyroid Nocturia Stress incontinence Thrombocytopenia Toe pain, left Historical Cancer of thyroid, Hurthle cell Hypothyroidism Impotence of organic origin Procedure/Surgical History Robot assisted laparoscopic radical prostatectomy (02/26/2015), TRUS (transrectal ultrasound) guided cryoablation of prostate (12/06/2014), TURP - Transurethral resection of prostate (06/14/2001), Cataract, Complete thyroidectomy, Cystoscopy, Hydrocelectomy, Repair of incisional hernia. Home Medications aspirin 81 mg oral capsule, 81 mg= 1 cap(s), Oral, q4hr Breztri Aerosphere levothyroxine 100 mcg (0.1 mg) Tab, 100 mcg= 1 tab(s), Oral, Daily Multi Vitamin+ ProAir HFA, 1 puff(s), Inhalation, Daily Prolastin-C intravenous injection, IV, qWeek Allergies oxyCODONE (Dizziness) penicillins (Rash) sulfa drugs Social History Alcohol - Denies Alcohol Use, 12/22/2018 Substance Abuse - Denies Substance Abuse, 10/04/2023 Tobacco Never (less than 100 in lifetime) Tobacco Use:. Never Smokeless Tobacco Use:., 07/06/2023 Family History Cancer: Mother. Colon cancer stage 4: Father. Colon cancer, stage 2: Brother. Screenings and Assessments 10/07/23 09:39:00 Result Name Value Comment Phone Call Monitoring Consent Agreed to continue call Phone Verification Patient Information Full name, street address and date of verified CM Program Enrollment Provides verbal consent for enrollment Goals and Interventions Care Plan Progress Note TCM#2- Spoke with patient states 'I am doing good,' 'everything is normal.' Patient notes he is waiting for insurance to approve his lithotripsy procedure. Dr. Miramontes office to call him and schedule upon approval. Patient states he is eating and drinking good. No change in seep pattern. Patient denies any issues pr concerns with bowel or urinary system. Denies any pain/discomfort. Patient denies any further issues or concerns. Sooner OV with PCP offered and patient declined. Will keep previously scheduled appointment on 10/20. Communication Events Date: October 12, 2023 Method: Phone call Type: Outbound Duration (min): 2 Outcome: Case discussion Contact Type: irb compliance coordinator Contact Name: Kashmir Hess Notes: TCM#2- see tcm note. Created By: Kashmir Hess Date: October 07, 2023 Method: Phone call Type: Outbound Duration (min): 8 Outcome: Case discussion Contact Type: irb compliance coordinator Contact Name: Kashmir Hess Notes: TCM#1- see tcm note. Created By: Kashmir Hess [facility] Consent for Procedure/Surger yon 10-11-2023 Consent for Procedure/Surgery [id number] #1.00TIFF [facility] Population Health 10-07-19 24 Population Health Case Information Case Priority: None Programs: -- Referral Source: Sales Order Processor Referral Reason: Care coordination Case Type: Transition Care Management Risk Score: -- Case Status: Enrolled (October 07, 2023) Date Assigned: October 07, 2023 Assigned By: Jimena, Kashmir R Date Enrolled: October 07, 2023 Assigned Primary Personnel: Kashmir Hess Assigned Secondary Personnel: -- Case Physician: Mak Hubbard MD Problems Ongoing BMI 34.0-34.9,adult COPD without exacerbation Elevated BP without diagnosis of hypertension History of prostate cancer Hypothyroid Nocturia Stress incontinence Thrombocytopenia Toe pain, left Historical Cancer of thyroid, Hurthle cell Hypothyroidism Impotence of organic origin Procedure/Surgical History Robot assisted laparoscopic radical prostatectomy (02/26/2015), TRUS (transrectal ultrasound) guided cryoablation of prostate (12/06/2014), TURP - Transurethral resection of prostate (06/14/2001), Cataract, Complete thyroidectomy, Cystoscopy, Hydrocelectomy, Repair of incisional hernia. Home Medications aspirin 81 mg oral capsule, 81 mg= 1 cap(s), Oral, q4hr Breztri Aerosphere levothyroxine 100 mcg (0.1 mg) Tab, 100 mcg= 1 tab(s), Oral, Daily Multi Vitamin+ ProAir HFA, 1 puff(s), Inhalation, Daily Prolastin-C intravenous injection, IV, qWeek Allergies oxyCODONE (Dizziness) penicillins (Rash) sulfa drugs Social History Alcohol - Denies Alcohol Use, 12/22/2018 Substance Abuse - Denies Substance Abuse, 10/04/2023 Tobacco Never (less than 100 in lifetime) Tobacco Use:. Never Smokeless Tobacco Use:., 07/06/2023 Family History Cancer: Mother. Colon cancer stage 4: Father. Colon cancer, stage 2: Brother. Screenings and Assessments 10/07/23 09:39:00 Result Name Value Comment Phone Call Monitoring Consent Agreed to continue call Phone Verification Patient Information Full name, street address and date of verified CM Program Enrollment Provides verbal consent for enrollment Goals and Interventions Care Plan Progress Note Admit Date: 10/04/23 [facility] Date of Discharge: 10/05/23 [facility] Follow-up appointment scheduled? no Did you understand your discharge instructions? yes Are you able to follow them? yes Did you receive new medications? yes, tamsulosin- unable to verify dosing at time of call Have you filled the Rx's? yes Are you taking them as prescribed? yes Are you having difficulty eating or swallowing your pills? no Are you having any stomach upset, diarrhea or constipation? no How are you sleeping? good Are you having any pain? none Do you have everything you need at home to care for yourself? yes Do you have Home Health?no Called patient for initial Transitional Care Management Program call. Readmission risk unavailable. Patient presented to [facility] with abd. pain was dx with kidney stones. Patient underwent stent placement on 10/05/23. Patient was given new rx for tamsulosin (unable to verify dose at this time.) Denies any other medication changes, medications will need to be reconciled at time of OV. Reviewed purpose and side effects of new medication with patient. Patient states he is feeling a lot better. Patient states he had immediate relief with stent placement. Patient denies any abdominal or back pain. Patient denies any issues or concerns with urine flow. Patient only reports frequency. Patient denies any bowel issues. States he is sleeping good, other than getting up a couple times to void. Patient states he is eating and drinking okay. Importance of hydration discussed, patient verbalized understanding. Patient has a follow up appointment with Dr. Miramontes on 10/11/23 at 1200. Patient does not have TCM follow up with PCP at this time. Offered patient sooner appointment with PCP and he declined at this time. Patient has OV with PCP on 10/20, which falls out of TCM eligibility. Patient would like to discuss with Dr. Miramontes on 10/10. CN explained TCM program and gave CN contact number. *D/C summary not available, above info. obtained from patient. Communication Events Date: October 07, 2023 Method: Phone call Type: Outbound Duration (min): 8 Outcome: Case discussion Contact Type: irb compliance coordinator Contact Name: Kashmir Hess Notes: TCM#1- see tcm note. Created By: Kashmir Hess [facility] RAD - MISCon 10-07-2023 RAD - MISC [id number] #1.00TIFF [facility] Consent for Procedure/Surger yon 10-06-2023 Consent for Procedure/Surgery [id number] #1.00TIFF [facility] Consultation Noteon 10-06-19 Consultation Note [id number] #1.00TIFF [facility] ECG 12-Leadon 10-06-2023 ECG 12-Lead [id number] #1.00TIFF [facility] Insurance Correspondence Off iceon 10-06-2023 Insurance Correspondence Office [id number] #1.00TIFF [facility] Lab Reportson 10-06-2023 Lab Reports [id number] #1.00TIFF [facility] Operative Reporton Operative Report [id number] #1.00TIFF [facility] Outside Hospital Correspo ndenceon 10-06-2023 Outside Hospital Correspondence [id number] #1.00TIFF [facility] Consultation Noteon 10-05-19 Consultation Note [id number] #1.00TIFF [facility] ED Note-Physicianon 10-05-19 ED Note-Physician [id number] #1.00TIFF [facility] Family Medicine Office/Clini c Noteon 10-05-2023 Family Medicine Office/Clinic Note Chief Complaint Medicare Wellness Visit Subsequent History of Present Illness Covid-19, MERS, Ebola Screen *Contact With Person With Highly Contagious Disease Like Ebola/MERS/COVID-19 AND Have One or More of the Symptoms Below : No *Travel to a Country With Wide-Spread Ebola/MERS/COVID-19 in the Past 21 Days AND Have One or More of the Symptoms Below : No Patient Reported Covid-19 Testing : No *Verify Droplet, Contact Precautions for Ebola (Reference for CDC) : N/A *Verify Airborne, Droplet Precautions for MERS/COVID-19 : N/A Pat Ramesh LPN - 10/04/2023 13:26 EDT Medicare/Medicaid Summary Blood Pressure Location : Right arm Blood Pressure Position : Sitting O2 Sat Resting/Exertion Alpha : Resting Peripheral Pulse Rate : 62 bpm Respiratory Rate : 16 br/min SpO2 : 96 % Pat Ramesh LPN 10/04/2023 16:39 EDT Chief Complaint : Medicare Wellness Visit Subsequent Patient Counseled : Nutrition, Physical activity, Elevated BMI Height/Length Measured : 171 cm(Converted to: 5 ft 7 in, 67.32 in) Weight Measured : 99.6 kg(Converted to: 219 lb 9 Ounces, 219.580 lb) Body Mass Index Measured : 34.06 kg/m2 Height in Inches : 67 in Weight in Pounds : 219.12 lb Systolic Blood Pressure : 162 mmHg (HI) Pat Ramesh LPN 10/04/2023 13:26 EDT Diastolic Blood Pressure : 98 mmHg (HI) Pat Ramesh LPN 10/04/2023 16:39 EDT Pain Present : No actual or suspected pain Pat Ramesh LPN 10/04/2023 13:26 EDT Hearing and Vision Screening FT FT Whisper Test Comments : No deficits noted. Vision Screen Comments : Wears corrective lenses, follows up with [facility] for eye exams. Pat Ramesh LPN 10/04/2023 13:26 EDT Advance Directive FT Type of Advance Directive : Living will, Medical durable power of disability attorney Pat Ramesh LPN 10/04/2023 16:39 EDT Advance Directive : Yes Patient Wishes to Receive Further Information on Advance Directives : No Organ Donation Consent : Yes Pat Ramesh LPN 10/04/2023 13:26 EDT Procedures / Surgeries FT - Procedure History (As Of: 10/04/2023 16:41:55 EDT) Anesthesia Minutes: 0 ; Procedure Name: Repair of incisional hernia ; Procedure Minutes: 0 ; Last Reviewed Dt/Tm: 10/04/2023 16:41:14 EDT Anesthesia Minutes: 0 ; Procedure Name: Complete thyroidectomy ; Procedure Minutes: 0 ; Last Reviewed Dt/Tm: 10/04/2023 16:41:14 EDT Procedure Dt/Tm: 12/06/2014 ; Anesthesia Minutes: 0 ; Procedure Name: TRUS (transrectal ultrasound) guided cryoablation of prostate ; Procedure Minutes: 0 ; Last Reviewed Dt/Tm: 10/04/2023 16:41:14 EDT Procedure Dt/Tm: 02/26/2015 ; Anesthesia Minutes: 0 ; Procedure Name: Robot assisted laparoscopic radical prostatectomy ; Procedure Minutes: 0 ; Last Reviewed Dt/Tm: 10/04/2023 16:41:14 EDT Anesthesia Minutes: 0 ; Procedure Name: Hydrocelectomy ; Procedure Minutes: 0 ; Last Reviewed Dt/Tm: 10/04/2023 16:41:14 EDT Anesthesia Minutes: 0 ; Procedure Name: Cataract ; Procedure Minutes: 0 ; Last Reviewed Dt/Tm: 10/04/2023 16:41:14 EDT Procedure Dt/Tm: 06/14/2001 ; Anesthesia Minutes: 0 ; Procedure Name: TURP - Transurethral resection of prostate ; Procedure Minutes: 0 ; Last Reviewed Dt/Tm: 10/04/2023 16:41:14 EDT Anesthesia Minutes: 0 ; Procedure Name: Cystoscopy ; Procedure Minutes: 0 ; Last Reviewed Dt/Tm: 10/04/2023 16:41:14 EDT Family History Family History (As Of: 10/04/2023 16:41:55 EDT) Father: Relation: Father ; Gender: Male ; Nomenclature: Colon cancer stage 4 ; Value: Positive Mother: Relation: Mother ; Gender: Female ; Nomenclature: Cancer ; Value: Positive Brother: Relation: Brother ; Gender: Male ; Nomenclature: Colon cancer, stage 2 ; Value: Positive Medicare/Medicaid Social History FT Social History (As Of: 10/04/2023 16:41:55 EDT) Alcohol: Denies Alcohol Use (Last Updated: 12/22/2018 09:28:00 EDT by Milagro Perera MA ) Tobacco: Never (less than 100 in lifetime) Tobacco Use:. Never Smokeless Tobacco Use:. (Last Updated: 07/06/2023 13:17:31 EST by Falguni Orellana) Substance Abuse: Denies Substance Abuse (Last Updated: 10/04/2023 13:30:21 EDT by Pat Ramesh LPN ) Health Risk Assessment FT HRA little interest or pleasure? : No HRA down, depressed, or hopeless? : No Hazards in your house? : No Fall Risk Past Year : No Worried About Falling : No Use a Cane or Walker? : No Someone Helps You in the Morning : No Fallen or felt dizzy standing up? : No Assistance with personal care? : No Trouble taking meds correctly? : No HRA Pain Present : No Able to walk without help? : Yes Ability to shop w/out help : Yes Prepare your own meals? : Yes Housework without help? : Yes Handle money without help : Yes Track own medications without help? : Yes Overall mood for past four weeks : Very well General health rating : Very Good Someone avail. to help if needed? : Yes, as much as I wanted Phys. & emotional health limit s (more content not included)... [facility] Comment on above: Result Comment: Elec tronically Signed By: Mak Hubbard MD\.br\Date and Time Signed: 10/05/23 08:37 EDT\.br\Electronically Co-Signed By: Pat Ramesh LPN\.br\Date and Time Co-Signed: 10/04/23 17:[address] EDT RAD - CT Reporton 10-05-2023 RAD - CT Report [id number] #1.00TIFF [facility] Screenson 10-05-2023 Screens [id number] #1.00TIFF [facility] Ambulatory Visit Summaryon 0 10-04-2023 Ambulatory Visit Summary TARIKValarie RUBI Naomy :1945 Visit Date:10/04/2023 Ambulatory Visit Instructions Your Diagnosis Annual visit for general adult medical examination with abnormal findings Elevated BP without diagnosis of hypertension COPD without exacerbation Thrombocytopenia Hypothyroid Obesity due to excess calories Screening for Hyperlipidemia History of prostate cancer Your Care Team Attending Physician - Mak Hubbard MD Primary Care Physician - Mak Hubbard MD This Is Your Medications List albuterol (ProAir HFA) alpha 1-proteinase inhibitor (Prolastin-C intravenous injection) aspirin (aspirin 81 mg oral capsule) budesonide/formotero l/glycopyrrolate (Breztri Aerosphere) levothyroxine (levothyroxine 100 mcg (0.1 mg) Tab) multivitamin (Multi Vitamin+) Procedures Performed Robot assisted laparoscopic radical prostatectomy (02/26/2015), TRUS (transrectal ultrasound) guided cryoablation of prostate (12/06/2014), TURP - Transurethral resection of prostate (06/14/2001), Cataract, Complete thyroidectomy, Cystoscopy, Hydrocelectomy, Repair of incisional hernia. Discharge Vitals Heart Rate (Peripheral) 62 Respiratory Rate 16 Blood Pressure 162/98 Height 171 cm Height 67 in Weight 99.6 kg Weight 219.12 lb BMI 34.06 What to do next Scheduled Follow-Up Appointments Wednesday 2:45 PM EDT With: Stevie MORALES, Mak Shipman Where: [facility] Invalid Interpretation Code [address] [place] [address]- \.br\ Wednesday 1:00 PM EDT \.br\ With:\.br\ Where: [facility] CHEMISTRYOrdered By: SYSTEM SYSTEM on 10-04-2023 Cholesterol [Mass/Vol] 215 mg/dL High 120 - 200 mg/dL Remisol Chem Cholesterol in HDL [Mass/Vol] 34 mg/dL Invalid Interpretation Code Remisol Chem Comment on above: Result Comment: '>= 60 LOW RISK' '<= 40 HIGH RISK' Cholesterol in LDL [Mass/Vol] 164 mg/dL High <=129mg/dL Remisol Chem Cholesterol in VLDL [Mass/Vol] 41 mg/dL High 7 - 40 mg/dL Remisol Chem Triglyceride [Mass/Vol] 206 mg/dL High <=149mg/dL Remisol Chem Prostate specific Ag [Mass/Vol] ng/mL Low 0.1 - 3.5 ng/mL [facility] Comment on above: Interpretive Data: T he concentration of PSA determined by different manufacturers can vary due to differences in assay methods and reagent specificity. Values obtained from different assay methods cannot be used interchangeably. The methodology used for this result was chemiluminescence using [employer]'s Access Hybritech PSA reagent. Lipid Panelon 10-04-2023 Cholesterol [Mass/Vol] 215 mg/dL High 120-200 [facility] Comment on above: Performed By: #### 2 [id number] ####[facility] [address] [place] [address] Cholesterol in HDL [Mass/Vol] 34 mg/dL Invalid Interpretation Code [facility] Comment on above: Result Comment: '>= 60 LOW RISK' '<= 40 HIGH RISK' Performed By: #### 2 [id number] ####[facility] [address] [place] [address] Cholesterol in LDL [Mass/Vol] 164 mg/dL High <=129 [facility] Comment on above: Performed By: #### 2 [id number] ####[facility] [address] [place] [address] Cholesterol in VLDL [Mass/Vol] 41 mg/dL High 7-40 [facility] Comment on above: Performed By: #### 2 [id number] ####[facility] [address] [place] [address] Triglyceride [Mass/Vol] 206 mg/dL High <=149 [facility] Comment on above: Performed By: #### 2 [id number] ####[facility] [address] [place] [address] Operative Reporton 4 Operative Report [id number] #1.00TIFF [facility] PSA Screen, Totalon 10-04-19 24 Prostate specific Ag [Mass/Vol] ng/mL Low 0.1-3.5 [facility] Comment on above: Result Comment: The concentration of PSA determined by different manufacturers can vary due to differences in assay methods and reagent specificity. Values obtained from different assay methods cannot be used interchangeably. The methodology used for this result was chemiluminescence using [employer]'s Access Hybritech PSA reagent. Performed By: #### 1 [id number] ####[facility] [address] [place] [address] Patient Educationon 10-04-19 24 Patient Education Cardiovascular Hypertension, Adult High blood pressure (hypertension) is when the force of blood pumping through the arteries is too strong. The arteries are the blood vessels that carry blood from the heart throughout the body. Hypertension forces the heart to work harder to pump blood and may cause arteries to become narrow or stiff. Untreated or uncontrolled hypertension can lead to a heart attack, heart failure, a stroke, kidney disease, and other problems. A blood pressure reading consists of a higher number over a lower number. Ideally, your blood pressure should be below 120/80. The first ( top ) number is called the systolic pressure. It is a measure of the pressure in your arteries as your heart beats. The second ( bottom ) number is called the diastolic pressure. It is a measure of the pressure in your arteries as the heart relaxes. What are the causes? The exact cause of this condition is not known. There are some conditions that result in high blood pressure. What increases the risk? Certain factors may make you more likely to develop high blood pressure. Some of these risk factors are under your control, including: ? Smoking. ? Not getting enough exercise or physical activity. ? Being overweight. ? Having too much fat, sugar, calories, or salt (sodium) in your diet. ? Drinking too much alcohol. Other risk factors include: ? Having a personal history of heart disease, diabetes, high cholesterol, or kidney disease. ? Stress. ? Having a family history of high blood pressure and high cholesterol. ? Having obstructive sleep apnea. ? Age. The risk increases with age. What are the signs or symptoms? High blood pressure may not cause symptoms. Very high blood pressure (hypertensive crisis) may cause: ? Headache. ? Fast or irregular heartbeats (palpitations). ? Shortness of breath. ? Nosebleed. ? Nausea and vomiting. ? Vision changes. ? Severe chest pain, dizziness, and seizures. How is this diagnosed? This condition is diagnosed by measuring your blood pressure while you are seated, with your arm resting on a flat surface, your legs uncrossed, and your feet flat on the floor. The cuff of the blood pressure monitor will be placed directly against the skin of your upper arm at the level of your heart. Blood pressure should be measured at least twice using the same arm. Certain conditions can cause a difference in blood pressure between your right and left arms. If you have a high blood pressure reading during one visit or you have normal blood pressure with other risk factors, you may be asked to: ? Return on a different day to have your blood pressure checked again. ? Monitor your blood pressure at home for 1 week or longer. If you are diagnosed with hypertension, you may have other blood or imaging tests to help your health care provider understand your overall risk for other conditions. How is this treated? This condition is treated by making healthy lifestyle changes, such as eating healthy foods, exercising more, and reducing your alcohol intake. You may be referred for counseling on a healthy diet and physical activity. Your health care provider may prescribe medicine if lifestyle changes are not enough to get your blood pressure under control and if: ? Your systolic blood pressure is above 130. ? Your diastolic blood pressure is above 80. Your personal target blood pressure may vary depending on your medical conditions, your age, and other factors. Follow these instructions at home: Eating and drinking ? Eat a diet that is high in fiber and potassium, and low in sodium, added sugar, and fat. An example of this eating plan is called the DASH diet. DASH stands for Dietary Approaches to Stop Hypertension. To eat this way: ? Eat plenty of fresh fruits and vegetables. Try to fill one half of your plate at each meal with fruits and vegetables. ? Eat whole grains, such as whole-wheat pasta, brown rice, or whole-grain bread. Fill about one fourth of your plate with whole grains. ? Eat or drink low-fat dairy products, such as skim milk or low-fat yogurt. ? Avoid fatty cuts of meat, processed or cured meats, and poultry with skin. Fill about one fourth of your plate with lean proteins, such as fish, chicken without skin, beans, eggs, or tofu. ? Avoid pre-made and processed foods. These tend to be higher in sodium, added sugar, and fat. ? Reduce your daily sodium intake. Many people with hypertension should eat less than 1,500 mg of sodium a day. ? Do not drink alcohol if: ? Your health care provider tells you not to drink. ? You are , may be , or are planning to become . ? If you drink alcohol: ? Limit how much you have to: ? 0?1 drink a day for women. ? 0?2 drinks a day for men. ? Know how much alcohol is in your drink. In the [place] one drink equals one 12 oz bottle of beer (355 mL), one 5 oz glass of wine (148 mL), or one 1? oz glass (more content not included)... [facility] OPERATIVE REPORTon OPERATIVE REPORT [address] [address] OPERATIVE REPORT PATIENT NAME: RUBI FLORES : 1945 MED REC NO: [id number] ROOM: ACCOUNT NO: [id number] ADMIT DATE: 07/08/2023 PROVIDER: Srinivasan Kramer DPM DATE OF PROCEDURE: 07/08/2023 SURGEON: Srinivasan Kramer DPM. PLANT CONTROL OPERATOR: Gabby. PREOPERATIVE DIAGNOSIS: Left foot fifth digit [...] and instrument counts were all correct. SRINIVASAN KRAMER DPM [email or web address] Doc#: [id number] CC: [facility] Surgical Pathology Reporton 07-08-2023 Surgical Pathology Report (NOTE) Path Number: [id number] -- Diagnosis -- LEFT FIFTH TOE (DISTAL), AMPUTATION: - BENIGN BONE AND CARTILAGE WITH NONSPECIFIC REACTIVE FEATURES (CLINICAL HAMMERTOE). 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 - NEGATIVE FOR OSTEOMYELITIS AND MALIGNANCY. Andrew Norton M.D. Electronically Signed Out sls/07/09/2023 Clinical Information Pre-op Diagnosis: MASS OF SKIN OF TOE OF LEFT FOOT Operative Findings: DISTAL 5TH LEFT TOE Operation Performed: TOE HAMMER REPAIR DISTAL SYNES PROCEDURE 5TH DIGIT tm Source of Specimen A: DISTAL 5TH LEFT TOE Gross Description RUBI FLORES DISTAL 5TH LEFT TOE Received in formalin is a 2.8 x 1.5 x 1.0 cm disarticulated digit with nail. No obvious discoloration is noted. There is a 0.2 cm area of slight granularity. The subjacent bone is unremarkable. Granular area on skin with margin perpendicular inked black and separate portion of bone from proximal end 1cs after decalcification. tm [facility]: Microscopic Description Microscopic examination performed. Processing Lab: [address] [address] Interpretation Performed at [address] [address] SURGICAL PATHOLOGY CONSULTATION Patient Name: RUBI FLORES. Med Rec: [id number] [employer] [facility] ANATOMIC PATHOLOGY [address] [place] [address]. [place], [place] [address] [facility] Ambulatory Visit Summaryon 0 07-06-2023 Ambulatory Visit Summary RUBI FLORES :1945 Visit Date:07/06/2023 Ambulatory Visit Instructions Your Diagnosis History of prostate cancer COPD without exacerbation Nocturia Stress incontinence Elevated BP without diagnosis of hypertension Toe pain, left Hypothyroid Your Care Team Attending Physician - Stevie MORALES, Mak Shipman Primary Care Physician - Mak Hubbard MD [...] MORALES, Andre Frazier Where: [facility] [place] Normal [facility] CBC w/ Auto Diffon 4 Basophil Absolute 0.0 E9/L Normal 0.0-0.2 [facility] Comment on above: Performed By: #### 1 [id number], 9223872, 98537978, 8953198 ####[facility] [address] [place] [address] Basophils/100 WBC (Bld) 0.7 % Normal 0.0-2.0 [facility] Comment on above: Performed By: #### 1 4412289, 2826277, 94288905, 1122433 ####[facility] [address] [place] [address] Eos Absolute 0.2 E9/L Normal 0.0-0.5 [facility] Comment on above: Performed By: #### 1 4042706, 0359837, 11447014, 5074313 ####[facility] [address] [place] [address] Eosinophils/100 WBC (Bld) 3.1 % Normal 0.0-8.0 [facility] Comment on above: Performed By: #### 1 8157388, 6466770, 78268177, 3250349 ####[address] [address] Erythrocyte distribution width (RBC) [Ratio] 13.9 % Normal 10.9-14.2 [facility] Comment on above: Performed By: #### 1 1765375, 5469818, 42454236, 8858410 ####[address] [address] Hematocrit (Bld) [Volume fraction] 47.0 % Normal 37.7-49.0 [facility] Comment on above: Performed By: #### 1 4535451, 5191446, 39604293, 3942496 ####[address] [address] Hemoglobin (Bld) [Mass/Vol] 15.5 g/dL Normal 13.5-17.5 [facility] Comment on above: Performed By: #### 1 1689848, 9612020, 30969288, 5460875 ####[address] [address] Lymph Absolute 1.1 E9/L Normal 1.0-4.0 [facility] Comment on above: Performed By: #### 1 3043821, 2011919, 32318828, 6802601 ####[address] [address] Lymphocytes/100 WBC (Bld) 17.4 % Normal 14.0-50.0 [facility] Comment on above: Performed By: #### 1 0294823, 3630369, 08946054, 8326748 ####[address] [address] MCH (RBC) [Entitic mass] 30.7 pg Normal 27.0-34.0 [facility] Comment on above: Performed By: #### 1 4453492, 6128152, 06428324, 3142477 ####[address] [address] MCHC (RBC) [Mass/Vol] 33.0 g/dL Normal 31.4-36.0 [facility] Comment on above: Performed By: #### 1 7224751, 1223774, 08409503, 9853617 ####[address] [address] MCV (RBC) [Entitic vol] 93.1 fL Normal 80.0-100.0 [facility] Comment on above: Performed By: #### 1 7514259, 3124873, 14189489, 5961053 ####[address] [address] [place] Absolute 0.7 E9/L Normal 0.2-1.0 [facility] Comment on above: Performed By: #### 1 0571341, 0200190, 26346291, 4643963 ####[address] [address] Monocytes/100 WBC (Bld) 10.5 % Normal 4.0-14.0 [facility] Comment on above: Performed By: #### 1 9713404, 6108482, 81691206, 8973797 ####[address] [address] Neutro Absolute 4.3 E9/L Normal 2.0-7.5 [facility] Comment on above: Performed By: #### 1 1898406, 7279928, 18142029, 1844384 ####[address] [address] Neutro Auto 68.3 % Normal 36.0-75.0 [facility] Comment on above: Performed By: #### 1 3631378, 3825644, 90086160, 0935269 ####[facility] [address] [place] [address] Platelet 137.0 E9/L Low 150.0-500.0 [facility] Comment on above: Result Comment: Veri fied with slide review Performed By: #### 1 2621385, 7369501, 17661936, 6626417 ####[facility] [address] [place] [address] Platelet mean volume (Bld) [Entitic vol] 10.3 fL Normal 6.4-10.8 [facility] Comment on above: Performed By: #### 1 8637398, 3791870, 63385529, 2356564 ####[facility] [address] [place] [address] RBC 5.1 E12/L Normal 4.3-5.9 [facility] Comment on above: Performed By: #### 1 0408974, 9096480, 14639181, 2089616 ####[facility] [address] [place] [address] WBC 6.3 E9/L Normal 4.0-11.0 [facility] Comment on above: Result Comment: Veri fied with slide review Performed By: #### 1 6360690, 3467674, 90649899, 3877478 ####[facility] [address] [place] [address] CHEMISTRYOrdered By: SYSTEM SYSTEM on 07-06-2023 Albumin [Mass/Vol] 4.2 g/dL Normal 3.3 - 5.0 gm/dL R emisol Chem Albumin/Globulin [Mass ratio] 2.1 {ratio} Normal 1.1 - 2.2 Rem[facility] Chem Alk Phos 100 [iU]/d High 21 - 98 Int._Unit/L Remisol Chem ALT 25 [iU]/d Normal 6 - 46 Int._Unit/L [facility] Chem Anion gap [Moles/Vol] 10 mmol/L Normal 6 - 16 mEq/L [facility] Chem AST 22 [iU]/d Normal 5 - 43 Int._Unit/L [facility] Chem Bili Total 0.6 mg/dL Normal 0.0 - 1.1 mg/dL [facility] Chem Calcium [Mass/Vol] 9.3 mg/dL Normal 8.9 - 11.1 mg/dL [facility] Chem Chloride [Moles/Vol] 105 mmol/L Normal 101 - 111 mmol/ L Rem[facility] Chem CO2 [Moles/Vol] 27 mmol/L Normal 21 - 31 mmol/L Remis ol Chem Creatinine [Mass/Vol] 0.8 mg/dL Normal 0.5 - 1.3 mg/dL Remisol Chem eGFR 89 mL/min/1.73 m2 Normal >=59mL/min /1.73 m2 Rem[facility] Chem Globulin (S) [Mass/Vol] 2.0 g/dL Normal 1.4 - 4.0 gm/dL [facility] Chem Glucose [Mass/Vol] 96 mg/dL Normal 55 - 199 mg/dL Re misol Chem Potassium [Moles/Vol] 4.4 mmol/L Normal 3.5 - 5.3 mmol/L Rem[facility] Chem Protein [Mass/Vol] 6.2 g/dL Normal 6.0 - 7.8 gm/dL R emisol Chem Sodium [Moles/Vol] 138 mmol/L Normal 135 - 145 mmol/L Remisol Chem TSH Qn 0.82 m[IU]/L Normal 0.34 - 5.60 mcIU/mL [facility] Urea nitrogen [Mass/Vol] 14 mg/dL Normal 5 - 21 mg/dL [facility] Chem Urea nitrogen/Creatinine [Mass ratio] 18 mg/mg Normal 10 - 20 Remisol Chem CMPon 07-06-2023 Albumin [Mass/Vol] 4.2 g/dL Normal 3.3-5.0 [facility] Comment on above: Performed By: #### 1 7859792, 0416631, 92441822, 2850043 ####[facility] [address] [place] [address] Albumin/Globulin [Mass ratio] 2.1 {ratio} Normal 1.1-2.2 [facility] Comment on above: Performed By: #### 1 4234709, 3058408, 60685915, 1499033 ####[facility] [address] [place] [address] Alk Phos 100 Int._Unit/L High 21-98 [facility] Comment on above: Performed By: #### 1 9455847, 6026829, 93373948, 5969583 ####[facility] [address] [place] [address] ALT 25 Int._Unit/L Normal 6-46 [facility] Comment on above: Performed By: #### 1 4296253, 3294084, 84952798, 6819685 ####[facility] [address] [place] [address] Anion gap [Moles/Vol] 10 mmol/L Normal 6-16 [facility] Comment on above: Performed By: #### 1 1562495, 4879392, 84181199, 5062673 ####[address] [place] [address] AST 22 Int._Unit/L Normal 5-43 [facility] Comment on above: Performed By: #### 1 5403104, 3936902, 57826870, 3005959 ####[address] [address] Bili Total 0.6 mg/dL Normal 0.0-1.1 [facility] Comment on above: Performed By: #### 1 6332161, 3135678, 36646111, 9758207 ####[address] [address] BUN/Creat Ratio 18 No Units Normal 10-20 [facility] Comment on above: Performed By: #### 1 3579041, 4058103, 46975272, 2181347 ####[address] [address] Calcium [Mass/Vol] 9.3 mg/dL Normal 8.9-11.1 [facility] Comment on above: Performed By: #### 1 4139776, 9124048, 72949192, 7197699 ####[address] [place] [address] Chloride [Moles/Vol] 105 mmol/L Normal 101-111 [facility] Comment on above: Performed By: #### 1 8260879, 6798547, 69184452, 2224339 ####[facility] [address] [place] [address] CO2 [Moles/Vol] 27 mmol/L Normal 21-31 [facility] Comment on above: Performed By: #### 1 5943049, 9900105, 80769295, 7244252 ####[facility] [address] [place] [address] Creatinine [Mass/Vol] 0.8 mg/dL Normal 0.5-1.3 [facility] Comment on above: Performed By: #### 1 9789038, 7894575, 61192907, 2115243 ####[facility] [address] [place] [address] Globulin (S) [Mass/Vol] 2.0 g/dL Normal 1.4-4.0 [facility] Comment on above: Performed By: #### 1 7242306, 8226057, 45394173, 4628466 ####[facility] [address] [place] [address] Glucose [Mass/Vol] 96 mg/dL Normal 55-199 [facility] Comment on above: Performed By: #### 1 7498453, 3307513, 84118325, 4539708 ####[facility] [address] [place] [address] Potassium [Moles/Vol] 4.4 mmol/L Normal 3.5-5.3 [facility] Comment on above: Performed By: #### 1 9645097, 2644745, 62059061, 9981585 ####[facility] [address] [place] [address] Protein [Mass/Vol] 6.2 g/dL Normal 6.0-7.8 [facility] Comment on above: Performed By: #### 1 6644484, 8242309, 64242721, 9918634 ####[facility] [address] [place] [address] Sodium [Moles/Vol] 138 mmol/L Normal 135-145 [facility] Comment on above: Performed By: #### 1 4350592, 4505832, 74661380, 1382265 ####[facility] [address] [place] [address] Urea nitrogen [Mass/Vol] 14 mg/dL Normal 5-21 [facility] Comment on above: Performed By: #### 1 7888192, 0471407, 47107235, 3194084 ####[facility] [address] [place] [address] Family Medicine Office/Clini c Noteon 07-06-2023 Family [...] needed - Please get your records from [facility] Ordered: CBC w/ Auto Diff Comprehensive Metabolic [...] qAM, # 90 tab(s), Refills(s) 0, Pharmacy: [id number], [id number], cm, 07/06/23 13:18:00 EST, Height/Length [...] Recorded pneumococcal 23-valent vaccine 03/08/2012 Recorded Normal [facility] Comment on above: Result Comment: Elec tronically Signed By: Stevie MORALES, Mak Shipman\.br\Date and Time Signed: 07/06/23 14:04 EST HEMATOLOGYOrdered [...] Normal 80.0 - 100.0 fL Remisol Heme [place] Absolute 0.7 E9/L Normal 0.2 - 1.0 E9/L Remisol Heme Monocytes/100 WBC (Bld) 10.5 % Normal 4.0 - 14.0 % Remisol Heme Neutro Absolute 4.3 E9/L Normal 2.0 - 7.5 E9/L Remis ol Heme Neutro Auto 68.3 % Normal 36.0 - 75.0 % Remisol Heme Platelet 137.0 E9/L Low 150.0 - 500.0 [...] 07-06 TSH Qn 0.82 m[IU]/L Normal 0.34-5.60 [facility] Comment on above: Performed By: #### 1 1617211, 0508105, 94824133, 5182319 ####[facility] [address] [place] [address] eGFRon 07-06-2023 eGFR 89 mL/min/1.73 m2 Normal >=59 [facility] Comment on above: Order Comment: Order added by Discern Expert. Performed By: #### 1 3349026, 2959634, 21557111, 7769365 ####[facility] [address] [place] [address] EKG 12 LeadOrdered By: Escobar Sanders on 06-30-2023 Atrial Rate 68 BPM [employer] Work Phone: P [place] 87 degrees [employer] Work Phone: P-R Interval 176 ms [employer] Work Phone: Q-T Interval 426 ms [employer] Work Phone: QRS Duration 144 ms [employer] Work Phone: QTc Calculation (Bazett) 452 ms [employer] Work Phone: R [place] -67 degrees [employer] Work Phone: T [place] 15 degrees [employer] Work Phone: Ventricular Rate 68 BPM [employer] Work Phone: [employer] Work Phone: EKG 12 Leadon 06-30-2023 Normal sinus rhythm Left axis deviation Right bundle branch block Abnormal ECG No previous ECGs available Confirmed by KARL SANDERS ([id number]) on 06/30/2023 12:04:49 AM [facility] Karl Sanders MD - 06/30/2023 Normal sinus rhythm Left axis deviation Right bundle branch block Abnormal ECG No previous ECGs available Confirmed by KARL SANDERS ([id number]) on 06/30/2023 12:04:49 AM [facility] Basic Metabolic Panelon 06-14 Anion gap [Moles/Vol] 8 mmol/L Low 9 - 17 mmol/L [facility] Calcium [Mass/Vol] 9.3 mg/dL 8.6 - 10.4 mg/dL [facility] Chloride [Moles/Vol] 106 mmol/L 98 - 107 mmol/L [facility] CO2 [Moles/Vol] 25 mmol/L 20 - 31 mmol/L [facility] [employer] Creatinine [Mass/Vol] 0.8 mg/dL 0.7 - 1.2 mg/dL [facility] GFR/1.73 sq M.predicted MDRD (S/P/Bld) [Vol rate/Area] - PINF [facility] Comment on above: These results are [...] 99 mg/dL 70 - 99 mg/dL [facility] Interpretation and review of laboratory results Abnormal [facility] Potassium [Moles/Vol] 4.6 mmol/L 3.7 - 5.3 mmol/L [facility] Sodium [Moles/Vol] 139 mmol/L 135 - 144 mmol/L [facility] Urea nitrogen [Mass/Vol] 17 mg/dL 8 - 23 mg/dL [facility] Urea nitrogen/Creatinine [Mass ratio] 21 mg/mg High - [facility] Basic Metabolic Profon 06-29 Anion gap [Moles/Vol] 8 mmol/L Low - [facility] Comment on above: Performed By: #### C BC, BMP #### [facility] [address] [place] [address] Project Planner: Rubi Almaraz MD BUN/CRE Ratio 21 High - [facility] Comment on above: Performed By: #### C BC, BMP #### [facility] [address] [place] [address] Project Planner: Rubi Almaraz MD Calcium [Mass/Vol] 9.3 mg/dL Normal 8.6-10.4 [facility] Comment on above: Performed By: #### C BC, BMP #### [facility] [address] [place] [address] Project Planner: Rubi Almaraz MD Chloride [Moles/Vol] 106 mmol/L Normal 98-107 [facility] Comment on above: Performed By: #### C BC, BMP #### [facility] [address] [place] [address] Project Planner: Rubi Almaraz MD CO2 [Moles/Vol] 25 mmol/L Normal 20-31 [facility] Comment on above: Performed By: #### C BARBARA, BMP #### [facility] [address] [place] [address] Project Planner: Rubi Almaraz MD Creatinine [Mass/Vol] 0.8 mg/dL Normal 0.7-1.2 [facility] Comment on above: Performed By: #### C BARBARA, BMP #### [facility] [address] [place] [address] Project Planner: Rubi Almaraz MD GFR/1.73 sq M.predicted among non-blacks MDRD (S/P/Bld) [Vol rate/Area] mL/min/{1.73_m2} Normal >60 [facility] Comment on above: Result Comment: These [...] renal tubular secretion. Performed By: #### C BARBARA, BMP #### [facility] [address] [place] [address] Project Planner: Rubi Almaraz MD Glucose [Mass/Vol] 99 mg/dL Normal 70-99 [facility] Comment on above: Performed By: #### C BARBARA, BMP #### [facility] [address] [place] [address] Project Planner: Rubi Almaraz MD Potassium [Moles/Vol] 4.6 mmol/L Normal 3.7-5.3 [facility] Comment on above: Performed By: #### C BC, BMP #### [facility] [address] [place] [address] [place] [address] Project Planner: Rubi Almaraz MD Sodium [Moles/Vol] 139 mmol/L Normal 135-144 [facility] Comment on above: Performed By: #### C BC, BMP #### [address] [place] [address] Project Planner: Rubi Almaraz MD Urea nitrogen [Mass/Vol] 17 mg/dL Normal 8-23 [facility] Comment on above: Performed By: #### C BC, BMP #### [address] [place] [address] Project Planner: Rubi Almaraz MD CBCon 06-29-2023 Erythrocyte distribution width (RBC) [Ratio] 13.3 % Normal 11.8-14.4 [facility] Comment on above: Performed By: #### C BC, BMP #### [address] [place] [address] Project Planner: Rubi Almaraz MD Hematocrit (Bld) [Volume fraction] 49.6 % Normal 40.7-50.3 [facility] Comment on above: Performed By: #### C BC, BMP #### [address] [place], [place] [id number] Project Planner: Rubi Almaraz MD Hemoglobin (Bld) [Mass/Vol] 16.6 g/dL Normal 13.0-17.0 [facility] Comment on above: Performed By: #### C BC, BMP #### [address] [place] [address] Project Planner: Rubi Almaraz MD MCH (RBC) [Entitic mass] 31.7 pg Normal 25.2-33.5 [facility] Comment on above: Performed By: #### C BC, BMP #### [facility] [address] [place], [place] [id number] Project Planner: Rubi Almaraz MD MCHC (RBC) [Mass/Vol] 33.5 g/dL Normal 28.4-34.8 [facility] Comment on above: Performed By: #### C BC, BMP #### [address] [place], [place] [address] Project Planner: Rubi Almaraz MD MCV (RBC) [Entitic vol] 94.7 fL Normal 82.6-102.9 [facility] Comment on above: Performed By: #### C BC, BMP #### [address] [place], [place] 446[address]83 Project Planner: Rubi Almaraz MD NRBC Automated 0.0 per 100 WBC Normal 0.0 [facility] Comment on above: Performed By: #### C BARBARA, BMP #### [address] [place], [place] [id number] Project Planner: Rubi Almaraz MD Platelet mean volume (Bld) [Entitic vol] 12.0 fL Normal 8.1-13.5 [facility] Comment on above: Performed By: #### C BARBARA, BMP #### [address] [place], [place] [id number] Project Planner: Rubi Almaraz MD Platelets (Bld) [#/Vol] 156 10*3/uL Normal 138-453 [facility] Comment on above: Performed By: #### C BC, BMP #### [address] [place], [place] [address]83 Project Planner: Rubi Almaraz MD RBC (Bld) [#/Vol] 5.24 10*6/uL Normal 4.21-5.77 [facility] Comment on above: Performed By: #### C BC, BMP #### [address] [place] [address] Project Planner: Rubi Almaraz MD WBC (Bld) [#/Vol] 6.9 10*3/uL Normal 3.5-11.3 [facility] Comment on above: Performed By: #### C BC, BMP #### [facility] [address] [place] [address] Project Planner: Rubi Almaraz MD Erythrocyte distribution width (RBC) [Ratio] 13.3 % 11.8 - 14.4 % [facility] Hematocrit (Bld) [Volume fraction] 49.6 % 40.7 - 50.3 % [facility] Hemoglobin (Bld) [Mass/Vol] 16.6 g/dL 13.0 - 17.0 g/dL [facility] MCH (RBC) [Entitic mass] 31.7 pg 25.2 - 33.5 pg [facility] MCHC (RBC) [Mass/Vol] 33.5 g/dL 28.4 - 34.8 g/dL [facility] MCV (RBC) [Entitic vol] 94.7 fL 82.6 - 102.9 fL [facility] Nucleated RBC/100 WBC (Bld) [Ratio] 0.0 % 0.0 per 100 WBC [facility] Platelet mean volume (Bld) [Entitic vol] 12.0 fL 8.1 - 13.5 fL [facility] Platelets (Bld) [#/Vol] 156 10*3/uL [facility] RBC (Bld) [#/Vol] 5.24 10*6/uL 4.21 - 5.77 m/uL [facility] WBC other (Bld) [#/Vol] 6.9 [facility] Vital Signs Date Time Vital Sign Value Performing Clinician Facility 10-25-2023 11:37-0400 Body height 176.53 cm [facility] 10-25-2023 11:37-0400 Body mass index (BMI) [Ratio] 31.3 kg/m2 [facility] 10-25-2023 11:37-0400 Body temperature 97.8 [degF] [facility] 10-25-2023 11:37-0400 Body weight 97.52 kg [facility] 10-25-2023 11:37-0400 Diastolic blood pressure 82 mm[Hg] [facility] 10-25-2023 11:37-0400 Heart rate 70 /min [facility] 10-25-2023 11:37-0400 Respiratory rate 16 /min [facility] 10-25-2023 11:37-0400 SaO2% (BldA) [Mass fraction] 98 % [facility] 10-25-2023 11:37-0400 Systolic blood pressure 126 mm[Hg] [facility] 07-08-2023 09:45-0500 Diastolic blood pressure 69 mm[Hg] Srinivasan Consolo DPM Work Phone: [facility] [employer] 07-08-2023 09:45-0500 Heart rate 59 /min Srinivasan Consolo DPM Work Phone: [facility] [employer] 07-08-2023 09:45-0500 Respiratory rate 17 /min Srinivasan Consolo DPM Work Phone: [facility] [employer] 07-08-2023 09:45-0500 SaO2% (BldA) [Mass fraction] 95 % [facility]rinivasan Consolo DPM [facility] [employer] 07-08-2023 09:45-0500 Systolic blood pressure 119 mm[Hg] Srinivasan Consolo DPM Work Phone: [facility] [employer] 07-08-2023 09:10-0500 Body temperature 96.91 [degF] Srinivasan Consolo DPM Work Phone: [facility] [employer] 07-08-2023 06:33-0500 Body height 177.8 cm Srinivasan Consolo DPM [facility] [employer] 07-08-2023 06:33-0500 Body mass index (BMI) [Ratio] 30.39 kg/m2 Srinivasan Consolo DPM Work Phone: [employer] 07-08-2023 06:33-0500 Body weight 96.07 kg Srinivasan Consolo DPM Work Phone: [employer] 06-29-2023 08:38-0500 Body height 177.8 cm Srinivasan Consolo DPM Work Phone: [employer] 06-29-2023 08:38-0500 Body mass index (BMI) [Ratio] 30.71 kg/m2 Srinivasan Consolo DPM Work Phone: [employer] 06-29-2023 08:38-0500 Body temperature 97.3 [degF] Srinivasan Consolo DPM Work Phone: [employer] 06-29-2023 08:38-0500 Body weight 97.07 kg Srinivasan Consolo DPM Work Phone: [employer] 06-29-2023 08:38-0500 Diastolic blood pressure 81 mm[Hg] Srinivasan Consolo DPM Work Phone: [employer] 06-29-2023 08:38-0500 Heart rate 74 /min Srinivasan Consolo DPM Work Phone: [employer] 06-29-2023 08:38-0500 Respiratory rate 18 /min Srinivasan Consolo DPM Work Phone: [employer] 06-29-2023 08:38-0500 SaO2% (BldA) [Mass fraction] 96 % Srinivasan Consolo DPM Work Phone: [employer] 06-29-2023 08:38-0500 Systolic blood pressure 160 mm[Hg] Srinivasan Consolo DPM Work Phone: [employer] 04-17-2022 10:22-0400 Blood Pressure Location Andre ORELLANA [facility] 04-17-2022 10:22-0400 Diastolic blood pressure 81 mm[Hg] Andre ORELLANA [facility] 04-17-2022 10:22-0400 Heart rate 71 /min Andre ORELLANA [facility] 04-17-2022 10:22-0400 Systolic blood pressure 139 mm[Hg] Andre ORELLANA [facility] 11-13-2021 10:17-0400 Diastolic blood pressure 84 mm[Hg] Srinivasan Consolo DPM Work Phone: [facility] 11-13-2021 10:17-0400 Heart rate 66 /min Srinivasan Consolo DPM Work Phone: [facility] [employer] 11-13-2021 10:17-0400 Respiratory rate 18 /min Srinivasan Consolo DPM Work Phone: [facility] [employer] 11-13-2021 10:17-0400 SaO2% (BldA) [Mass fraction] 97 % Srinivasan Consolo DPM Work Phone[facility] [employer] 11-13-2021 10:17-0400 Systolic blood pressure 140 mm[Hg] Srinivasan Consolo DPM Work Phone: [facility] [employer] 11-13-2021 08:46-0400 Body height 177.8 cm Srinivasan Consolo DPM [facility] [employer] 11-13-2021 08:46-0400 Body mass index (BMI) [Ratio] 30.13 kg/m2 Srinivasan Consolo DPM [facility] [employer] 11-13-2021 08:46-0400 Body temperature 96.49 [degF] Srinivasan Consolo DPM Work Phone: [facility] [employer] Comment on above: checked 4x 11-13-2021 08:46-0400 Body weight 95.25 kg Srinivasan Kramer DPM Work Phone: [facility] Encounters Encounter Date Encounter Type Care Provider Facility Start: 10-26-2023 End: 10-27-2023 ambulatory Mak Hubbard Facility:[facility] Start: 10-25-2023 End: 10-25-2023 ambulatory [facility] Work Phone: Start: 10-25-2023 End: 10-25-2023 Patient encounter procedure [facility] Work Phone: Start: 10-21-2023 ambulatory Shady Rao ty:[id number] Start: 10-19-2023 End: 10-19-2023 ambulatory Mak Hubbard Facility:[id number] Start: 10-11-2023 End: 10-12-2023 ambulatory Shady MIRAMONTES Facility:[facility] Start: 10-11-2023 End: 10-11-2023 Patient encounter procedure Shady MIRAMONTES [facility] Start: 10-07-2023 End: 10-18-2023 ambulatory Mak Hubbard Facility:[id number] Start: 10-05-2023 End: 10-06-2023 ambulatory Shady MIRAMONTES Facility:CD:[id number] Start: 10-04-2023 End: 10-05-2023 ambulatory Mak Hubbard Facility:[facility] Start: 10-04-2023 End: 10-05-2023 ambulatory Mak Hubbard Facility:[facility] Start: 10-04-2023 End: 10-04-2023 Lab Drop off Mak Hubbard [facility] Start: 08-30-2023 ambulatory Andre ORELLANA Facility :[facility] [place] Start: 07-08-2023 ambulatory Mak Hubbard Facility:[facility] [place] Start: 07-08-2023 End: 07-08-2023 ambulatory BRUNILDA Marks [facility] Start: 07-08-2023 End: 07-08-2023 Subsequent hospital visit by physician Srinivasan Kramer DPM Work Phone: [facility] Comment on above: Mass of skin of toe of left foot Start: 07-06-2023 End: 07-07-2023 ambulatory Mak Hubbard Facility:[facility] Start: 07-06-2023 End: 07-06-2023 Lab Drop off Mak Hubbard [facility] Start: 06-29-2023 End: 07-04-2023 ambulatory SRINIVASAN KRAMER [facility] Start: 06-29-2023 End: 07-03-2023 Subsequent hospital visit by physician Srinivasan Kramer DPM Work Phone: [facility] PRE ADMIT Start: 06-15-2023 End: 06-16-2023 ambulatory Mak Hubbard Facility:[facility] [place] Start: 10-14-2022 End: 11-11-2022 ambulatory ANA [...] encounter procedure Andre ORELLANA [facility] [place] Start: 04-14-2022 End: 04-15-[address] DOCTOR HERNANDEZ Facility:[facility] Start: 04-14-2022 End: 05-12-2022 ambulatory ANA FERNANDO . Facility:[facility] Start: 03-17-2022 End: 04-07-2022 ambulatory ANA FERNANDO . Facility:[facility] Start: 02-17-2022 End: 03-10-2022 ambulatory ANA FERNANDO . Facility:[facility] Start: 01-13-2022 End: 02-10-2022 ambulatory ANA FERNANDO . Facility:[facility] Start: 12-16-2021 End: 01-06-2022 ambulatory ANA FERNANDO . Facility:[facility] Start: 11-13-2021 End: 11-13-2021 Subsequent hospital visit by physician Srinivasan Kramer DPM Work Phone: [facility] OR Procedures Date Procedure Procedure Detail Performing Clinician Start: 06-29-2023 Ecg routine ecg w/le ast 12 lds w/i&r Srinivasan Kramer DPM Work Phone: Start: 06-29-2023 Basic metabolic pane l calcium total Srinivasan Kramer DPM Work Phone: Start: 04-14-2022 PSA screening ANA PARSON [facility] . Comment on above: Performed By: #### P SAD #### [facility] [address] [place] [address] Dr. Padmini Parson Start: 02-26-2015 Robot assisted lapar oscopic radical prostatectomy Andre ORELLANA Start: 12-06-2014 Ultrasonography guid ed transrectal cryoablation of prostate Andre ESTEBAN Start: 06-14-2001 Transurethral prostatectomy Andre ORELLANA Cataract (disorder) Andre ORELLANA Cystoscopy Andre ORELLANA Hydrocelectomy Andre ESTEBAN Repair of incisional hernia Andre ORELLANA Total thyroidectomy Andre ORELLANA Plan of Treatment Date Care Activity Detail Author Start: 03-26-2033 DTaP/Tdap/Td vaccine (2 - Td or Tdap) DTaP/Tdap/Td vaccine (2 - Td or Tdap) [facility] Start: 10-09-2024 ambulatory Ambulatory Facility:[facility] [place] Start: 01-03-2024 ambulatory Ambulatory Facility:[facility] [place] Start: 07-08-2023 End: 07-08-2023 Admission to same day surgery center 07/08/2023 8:00 AM EST - 07/08/2023 9:05 AM EST Surgery [facility] [address] [place], [place] [id number] Srinivasan Kramer, DPM [address] [place] [address] TOE HAMMER REPAIR-DISTAL SYNES PROCEDURE 5TH DIDGET [facility] OR Comment on above: TOE HAMMER REPAIR-DI STAL SYNES PROCEDURE 5TH DIDGET Start: 07-08-2023 End: 07-08-2023 Anesthesia consultation 07/08/2023 8:00 AM EST Anesthesia Event [facility] [address] [place] [id number] Monse Dotson, 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 - 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 ARRANGER [address] [address] [address] [place] [address] [facility] Start: 07-08-2023 End: 07-08-2023 Correction [facility] Start: 07-08-2023 Subsequent hospital visit by physician 07/08/2023 8:00 AM EST Hospital Encounter [facility] [address] [place] [address] Srinivasan Kramer, DPM [address] [place] [address] [facility] Start: 05-10-2023 Annual Wellness Visi t (Medicare) Annual Wellness Visit (Medicare) [facility] Start: 02-12-2022 Influenza vaccination Flu vacc ine (Season Ended) [facility] Start: 11-13-2021 End: 11-13-2021 Correction [facility] FOOT BUNIONECTOMY Bone spur 11/13/2021 9:42 AM EDT [facility] Start: 01-08-2008 Pneumococcal 65+ yea rs Vaccine (1 - PCV) Pneumococcal 65+ years Vaccine (1 - PCV) [facility] Start: 2003 Respiratory Syncytia l Virus (RSV) or age 60 yrs+ (1 - 1-dose 60+ series) Respiratory Syncytial Virus (RSV) or age 60 yrs+ (1 - 1-dose 60+ series) [facility] Start: 1993 Shingles vaccine (1 of 2) Shingles vaccine (1 of 2) [facility] Start: 1983 Prostate specific antigen measurement Prostate Specific Antigen (PSA) Screening or Monitoring [facility] Start: 1962 DTaP/Tdap/Td vaccine (1 - Tdap) DTaP/Tdap/Td vaccine (1 - Tdap) [facility] Start: 1961 Hepatitis C screening Hepatitis C sc reen [facility] Start: 1955 Depression Screen Depression Screen [facility] Start: 01-08-1948 COVID-19 Vaccine (1) COVID-19 Vaccin e (1) [facility] Start: 1943 COVID-19 Vaccine (#1) COVID-19 Vacci ne (#1) [facility] aPTT in Blood by Coagulation assay APTT Lab Routine Mass of skin of toe of left foot Release Upon Ordering for 1 Occurrences starting 07/08/2023 [facility] Comment on above: Release Upon Orderin g for 1 Occurrences starting 07/08/2023 Surgical Pathology Surgical Path ology Lab Routine Mass of skin of toe of left foot Release Upon Ordering for 1 Occurrences starting 07/08/2023 [facility] Work Phone: Comment on above: Release Upon Orderin g for 1 Occurrences starting 07/08/2023 Immunizations Immunization Date Immunization Notes Care Provider Fa cili 04-09-2023 influenza virus vaccine, unspecified formulation Mak Hubbard [facility] 03-26-2023 pneumococcal 20-alexandre nt conjugate vaccine Mak Hubbard [facility] 03-26-2023 tetanus toxoid, redu pj diphtheria toxoid, and acellular pertussis vaccine, adsorbed Mak Hubbard [facility] 05-26-2019 influenza virus vaccine, unspecified formulation Mak Hubbard [facility] 03-14-2018 influenza virus vaccine, unspecified formulation Mak Hubbard [facility] 03-14-2018 pneumococcal conjuga te vaccine, 13 valent Mak Hubbard [facility] 01-26-2018 pneumococcal conjuga te vaccine, 13 valent Mak Hubbard [facility] 03-08-2012 pneumococcal polysaccharide vaccine, 23 valent Mak Hubbard [facility] NEGATED: Highlighted row has not occurred!04-17-2022 SARS-CoV-2 mRNA (tozinameran 5y-11y) vaccine Andre ESTEBAN [facility] Payers Date Payer Category Payer Medicare [id number] 2007 Unknown [id number] 5 1959 Medicare [id number] 1959 Unknown [id number] 1943 Unknown [id number] 2.16.84 0.1.388979.3.579.2.593 1943 Unknown [id number] 2.16.84 0.1.800388.3.579.2.593 1943 Unknown [id number] 2.16.84 0.1.212164.3.579.2.593 1943 Unknown [id number] 2.16.84 0.1.771802.3.579.2.593 1943 Unknown [id number] 2.16.84 0.1.269992.3.579.2.593 1943 Unknown [id number] 2.16.84 0.1.872004.3.579.2.593 1943 Unknown [id number] 2.16.84 0.1.863294.3.579.2.593 1943 Unknown [id number] 2.16.84 0.1.500490.3.579.2.593 1943 Unknown [id number] 2.16.84 0.1.367183.3.579.2.593 1943 Unknown [id number] 2.16.84 0.1.585413.3.579.2.593 1943 Unknown [id number] 2.16.84 0.1.942931.3.579.2.593 1943 Unknown [id number] 2.16.84 0.1.410127.3.579.2.593 1943 Unknown [id number] 2.16.8 40.1.523035.3.579.2.173 1943 Unknown [id number] 2.16.8 40.1.730405.3.579.2.173 1943 Unknown [id number] 2.16.8 40.1.984665.3.579.2.727 1943 Unknown [id number] 2.16.8 40.1.839129.3.579.2.727 1943 Unknown [id number] 2.16.8 40.1.092284.3.579.2.727 1943 Unknown [id number] 2.16.8 40.1.301777.3.579.2.727 1943 Unknown [id number] 2.16.8 40.1.336795.3.579.2.727 1943 Unknown [id number] 2.16.8 40.1.675192.3.579.2.727 1943 Unknown [id number] 2.16.8 40.1.517657.3.579.2.727 1943 Unknown [id number] 2.16.8 40.1.568385.3.579.2.727 1943 Unknown [id number] 2.16.8 40.1.523513.3.579.2.727 1943 Unknown [id number] 2.16.8 40.1.515843.3.579.2.727 1943 Unknown [id number] 2.16.8 40.1.099143.3.579.2.727 1943 Unknown [id number] 2.16.8 40.1.501197.3.579.2.727 Medicare Medicare Outpatient [id number] Self-pay Self Pay [id number] Social History Date Type Detail Facility Start: 10-29-2021 End: 10-25-2023 Tobacco smoking status [facility] Never smoked tobacco [employer] Phone: Start: 10-29-2021 Tobacco use and exposure Smokeless tobacco non-user [facility] Phone: Start: 11-13-2021 End: 07-08-2023 Alcohol intake Ex-drinker (finding) [facility] Phone: Start: 1945 Sex Assigned At Not on file [employer] Phone: Start: 11-03-2021 End: 11-13-2021 Exposure to SARS-CoV-2 (event) Not sure [facility]: Tobacco smoking status [facility] Start: 06-29-2023 Sex Assigned At Male F [facility] Start: 06-29-2023 History of Social function [facility] Start: 1945 Sex Assigned At Male F [facility] Functional Status Date Assessment Result Facility 04-17-2022 Functional Status N/A [facility] Clinical Notes 11-13-2021 to 10-06-2023 Eleonora Owens RN - 07/08/2023 9:52 AM ESTSEleonora soto RN - 07/08/2023 9:45 AM ESTDischarge Tammie Rick RN - 06/29/2023 9:00 AM EST Note Date & Type Note Facility 10-06-2023 Hospital Discharg e instructions Follow Up Care 10/06/2023 10:58:49 With:BELLE MORALES, Shady Easton, URL Address: [facility] [address], [place] [phone] When: Unknown [facility] 10-06-2023 Note [id number] [facility] 07-08-2023 History of Presen t illness Narrative Discharge instructions reviewed with patient and patient's . Both imply understanding. Darco shoe put on left foot at this time. Marcio wrap clean and dry to left foot. No drainage. Patient denies c/o pain. Positive for numbness. documented in this encounter [facility] 07-08-2023 Hospital Discharg e instructions Eleonora Owens RN [...] question or concerns please call the office ([phone]). If after hours Dr. Kramer can be reached at [phone] (home) or [phone] (cell phone). documented in this encounter [facility] 06-29-2023 History of Presen t illness Narrative Patient instructed on the pre-operative, intra-operative, and post-operative process. Patient instructed on NPO status. Medication instructions and pre operative instruction sheet reviewed with the patient. CHG skin prep instructions reviewed with patient. [facility] Preadmission Testing Name: Rubi Flores : 1945 Patient (home) Procedure left distal synes procedure Date of Procedure: 07/08/23 Surgeon: Srinivasan Kramer DPM Ht: 177.8 cm (5' 10 ) [...] PAT? Yes documented in this encounter [facility] 04-17-2022 Hospital Discharg e instructions Patient [...] fried and sweet foods. General instructions Take [id number] and prescription medicines only as told by [...] 03/27/2010 Document Revised: 09/21/2019 Document Reviewed: 06/16/2018 [employer] Patient Education 2020 [employer] Follow Up Care 04/18/2021 10:41:15 With:ESTEBAN MORALES, Andre Frazier, URL Address: [address] [place] [address]- When: Unknown [facility] 11-13-2021 History of Presen t illness Narrative Discharge instructions reviewed with patient. Verbalized understanding and denied any questions. Patient walked with steady gait and use of post op shoe. Patient instructed on the pre-operative, intra-operative, and post-operative process. Medication instructions and pre operative instruction sheet reviewed with the patient. 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 [employer] Work Phone: Evaluation + Plan note Future Appointments Appointment Date:04/16/2023 10:15:00 AM Scheduled Provider:Andre ORELLANA MD Location:[facility] Appointment Type:URO Office Visit Diagnostic Tests PendingPSA Total 03/14/23 [facility] Evaluation + Plan note Future Appointments Appointment Date:08/30/2023 09:30:00 AM Scheduled Provider:Andre ORELLANA MD Location:[facility] Appointment Type:URO Office Visit [facility] Evaluation + Plan note Future Appointments Appointment Date:10/11/2023 02:45:00 PM Scheduled Provider:Mak Hubbard [facility] Type:FM Open Appointment Date:01/03/2024 02:00:00 PM Scheduled Provider:Mak Hubbard MD [facility] Appointment Type:FM Open Appointment Date:10/09/2024 01:00:00 PM Scheduled Provider: [facility] App[facility] Type:FM Medicare Wellness Subsequent [facility] Evaluation + Plan note Future Appointments Appointment Date:10/19/2023 08:30:00 AM Scheduled Provider:Mak Hubbard MD [facility] App[facility]ment Type:FM Open Appointment Date:01/03/2024 02:00:00 PM Scheduled Provider:Mak Hubbard MD [facility] Type: Open Appointment Date:10/09/2024 01:00:00 PM Scheduled Provider: Location:[facility] Appointment Type: Medicare Wellness Subsequent [facility] Evaluation note Diagnosis Mass of skin of toe of left foot documented [facility] this encounter [facility] assessment information available [facility] Work Phone: Hospital course Narrative No data available for this section [facility] Hospital Discharge instructions* Instructions* Joyce Rodney RN [...] question or concerns please call the office ([phone]). If after hours Dr. Kramer can be reached at [phone] (home) or [phone] (cell phone). documented [facility] Work Phone: Hospital Discharge instructions No data available for this section [facility] No data available for this section [facility] Reason for visit Narrative* Auth/Cert Specialty Diagnoses / Procedures Referred By Rebecca t Referred To Contact Diagnoses Calcaneal spur, left SPUR LEFT 5TH DIGIT Procedures AL REPAIR OF HAMMERTOE,ONE FOOT BUNIONECTOMY- EXCISION SPUR L5TH DIGIT Srinivasan Kramer, DPM [address] [place] [address] [employer] [address] [place] [address] Referral ID Status Reason Start Date Expiration Date Visits Re quested Visits Authorized [id number] 1 1 [facility] Phone: Advance Directives No Advanced Directives Records FoundDocuments on File Type Date 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 Advance Directive Response Recorded Date/ Time Advance Directives No April 9:27am Summary Purpose Family History No Family History Records Found No data available for this section No Family History Records Found No data available for this section No data available for this section No data available for this section No Family History Records Found Chief Complaint and Reason for Visit Chief Complaint REF FOR 1.5CM ANEURY SM AT PROMIXAL CELIAC ARTERY Additional Source Comments PRN Active and Recently Administ ered Medications (unrecognized section and content) Medication Order 11/11/2021 11/12/2021 11/13/2021 bupivacaine-EPINEPHrine (MARCAINE-w/EPINEPHRINE) 0.5% -1:046662 2 mL, lidocaine PF 2 % 2 mL (CANCELED) PRN, Starting on Roberta 11/13/21 at 1006, Intra-op 1006 (Given - Provid er: Srinivasan Kramer DPM) sodium chloride 0.9 % 500 mL with gentamicin (GARAMYCIN) 80 mg (CANCELED) PRN, Starting on Roberta 11/13/21 at 1002, Intra-op 1002 (Given - Provid er: Srinivasan Kramer DPM) Scheduled Medication Order 07/06/2023 07/07/2023 07/08/2023 [...] Intra-op 0900 (Given - Provid er: Srinivasan Kramer DPM) lidocaine 2 % injection (CANCELED) PRN, Starting on Roberta 07/08/23 at 0835, Until Roberta 07/08/23 at 0918, Intra-op 0835 (Canceled Entry - Provider: Srinivasan Kramer DPM)0857 (Given - Provider: Srinivasan Kramer DPM) lidocaine-EPINEPHrine 2 percent-1:661674 injection (CANCELED) PRN, Starting on Roberta 07/08/23 at 0901, Until Roberta 07/08/23 at 0918, Intra-op 0901 (Given - Provid er: Srinivasan Kramer DPM) No Frequency Medication Order 07/06/2023 07/07/2023 07/08/2023 BUPivacaine (PF) (MARCAINE) 0.5 % injection 1 dose, Starting on Roberta 07/08/23 at 0734, Until Roberta 07/08/23 at 1944, Denise Santiago: cabinet overridePamela Rose: cabinet override 0745 (Due) dexAMETHasone (DECADRON) 4 MG/ML injection 1 dose, Starting on Roberta 07/08/23 at 0734, Until Roberta 07/08/23 at 1944, Denise Santiago: cabinet override, Denise Santiago: cabinet override 0745 (Due) gentamicin (GARAMYCIN) 40 MG/ML injection 1 dose, Starting on Roberta 07/08/23 at 0735, Until Roberta 07/08/23 at 1944, Denise Santiago: cabinet override, Denise Santiago: cabinet override 0745 (Due) lidocaine 1 % injection 1 dose, Starting on Roberta 07/08/23 at 0734, Until Roberta 07/08/23 at 1944, Denise Santiago: cabinet overridePamela Rose: cabinet override 0745 (Due) Care Teams (unrecognized sec tion and content) Hood Fitter Relationship Specialty Start Date End Date MalachiBrunilda stewartDO [address] [place] [address] PCP - General 11/12/21 Hood Fitter Relationship Specialty [place] [address] [place] [address] PCP - General 11/12/21 Hood Fitter Relationship Specialty Start Date End Date MalachiBrunilda stewart DO [address] [place] [address] PCP - General 11/12/21 Team Status: Active Member Role Status Dates Denny Perez MD Primary Care Provider Active Team Status: Inactive Member Role Status Dates Denny Perez MD Primary Care Provider Active Start: October 25, 2023 End: October 25, 2023 Axel Heller MD Attending Provider Active S tart: October 25, 2023 End: October 25, 2023 (unrecognized sect ion and content) No Status Records FoundNo Status Records FoundNo Status Records Found INFORMATION SOURCE (unrecogn ized section and content) DATE CREATED AUTHOR 11/20/2022 [facility] DATE CREATED AUTHOR AUTHOR'S ORGANIZ ATION 07/11/2023 [facility] DATE CREATED AUTHOR AUTHOR'S ORGANIZ ATION 11/03/2023 Robby Delgadillo [facility] Reason for Visit (unrecogniz ed section and content) Specialty Diagnoses / Procedures Referred By Rebecca t Referred To Contact Diagnoses Mass of skin of toe of left foot Mass of skin of toe of left foot [R22.42] Procedures AL CORRECTION HAMMERTOE TOE HAMMER REPAIR-DISTAL SYNES PROCEDURE 5TH Srinivasan Mcdonough, JOSE [address] [place] [address] [facility] [address] [place] [address] Referral ID Status Reason Start Date Expiration Date Visits Re quested Visits Authorized [id number] 1 1 Goals (unrecognized section and content) Goals may be documented in a n alternate section FOR RECORDS PERTAINING TO PATIENTS WHO ARE [...] BE BASED ON THE PRIMARY CLINICAL RECORDS. [employer] [facility]. provides no warranty or guarantee of the accuracy or completeness of information in this document.
[2023-11-04 08:01] LABS: INR 0.99; Partial Thromboplastin Time 30.8 sec (22.3-36.2); Prothrombin Time 10.5 sec (9.0-11.6)
[2023-11-04] MEDS: LACTATED RINGER'S SOLUTION 1,000 ML 50 ML IV (08:04)
[2023-11-04] MEDS: CIPROFLOXACIN IN 5 % DEXTROSE 400 MG/200 ML PIGGYBACK 200 MG IV (09:19)
[2023-11-04] MEDS: LACTATED RINGER'S SOLUTION 1,000 ML 75 ML IV (11:41)
--- NOTE | 2023-11-04 11:41 | P.URON_ITS ---
Urology Surgery Operative Note Operative Note Procedure Date: 11/04/23 Time Out Performed: yes Pre-op Diagnosis: Left ureteral calculus status post stent placement Post-op Diagnosis: same as pre-op Procedures performed: 1. Cystoscopy.2. Left stent change to 6 Vietnamese variable length.3. Left ureteroscopy.4. Thulium laser lithotripsy of a large hard impacted left proximal ureteral calculus5. Stone basket fragment extraction. Anesthesia: General-LMA Primary Surgeon: Shady Miramontes Complications: None Estimated blood loss (mL): 5 Findings: Large hard impacted proximal ureteral calculus Specimens: Left ureteral calculus fragments Drains: 6 Vietnamese variable length left ureteral stent Indications for Procedures: This gentleman has a large proximal ureteral calculus that was obstructing and causing urosepsis. He was stented several weeks ago. He now presents for definitive ureteroscopic laser lithotripsy and possible stent removal versus jerome wright. He has signed an informed consent for these procedures after risks were explained. Detailed description of Procedure: The patient was brought to the operating room and placed on the operating room table in the supine position. SCDs were placed on the lower extremities and turned on and functioning during the entire case. Timeout was done by all parties in the room. We all agreed upon the patient's identification and the planned procedures for this patient. Genn. anesthesia was then administered. The patient was then repositioned into the modified dorsal lithotomy position. All pressure points were satisfactorily padded. Genitalia were sterilely prepped and draped in usual fashion.I started by passing a 22 Vietnamese Olympus cystoscope per urethra and into the bladder. A flexible grasping forceps was passed and the end of the stent was grasped and brought out the urethral meatus. I then slid a Glidewire through the stent up into the kidney and removed the old stent.I then passed a 10/12 Vietnamese ureteral access sheath over the wire and up to the L5 level. The wire and stylette were then removed. I then passed a flexible ureteroscope through the access sheath and up the ureter. I was able to get to the stone.I then used a 200 Angstrom laser fiber and passed it through the scope and made contact with the stone. Using the [facility] laser at 6 W initially then 8 W under the fragment mode, the stone was fragmented into many pieces. The stone was very dense and impacted.A 0 tip nitinol basket was used to extract pieces and these were sent for stone analysis.Once all of the pieces were either removed or dusted the scope was then removed. A Glidewire was passed back through the access sheath into the kidney and the sheath was removed. The cystoscope was backloaded over the wire and passed into the bladder. A new 6 Vietnamese variable length stent was passed over the wire up into the kidney. The wire was removed and there were good curls in the kidney and in the bladder. The bladder was drained of its contents and the scope was then removed.Our last fluoroscopic image revealed no visible ureteral stone. The patient was then [facility] and wheeled to PACU in stable condition.
--- NOTE | 2023-11-04 11:55 | PC.NURSE ---
Has urge to void; urinal in place
--- NOTE | 2023-11-04 12:17 | PC.NURSE ---
Unable to void in urinal
--- NOTE | 2023-11-04 12:45 | PC.NURSE ---
1235- pt voids without difficulty. watermeon color with no clots.
== END 2023-11-04 12:50 | disposition home or self-care (01) ==
PROVIDERS: Anesthesiology; PCP Family Medicine; Visit Provider Urology
PROC: (CPT 52356; principal; 2023-11-04 09:00)
DX: N20.1 Calculus of ureter (principal); Z90.79 Acquired absence of other genital organ(s); Z79.01 Long term (current) use of anticoagulants
CPT/HCPCS: 52356; 36415; 76000; 82365; 85610; 85730; 99999; J2704

== ENCOUNTER 2023-11-10 07:34 | Outpatient (RCR) | payer MEDICARE, OTHER, SELFPAY ==
[2023-10-13 13:40] VITALS: BP 122/78; PULSE 70; TEMP 36.6; O2SAT 94
--- NOTE | 2023-10-13 13:53 | PC.NURSE ---
1340 Arrival ambulatory, weight obtained 217.2 pounds. seated in chair 1. 1345IV initiated left inner arm, see documentation. Given water to drink.
[2023-10-13] MEDS: PROTEINASE INHIBITOR IV (14:04)
[2023-10-13] MEDS: ALPHA IV (14:04)
[2023-10-20 14:14] VITALS: BP 137/81; PULSE 75; TEMP 36.7; O2SAT 93
[2023-10-20] MEDS: PROTEINASE INHIBITOR IV (14:22)
[2023-10-20] MEDS: ALPHA IV (14:22)
[2023-10-27] MEDS: PROTEINASE INHIBITOR IV (14:08)
[2023-10-27] MEDS: ALPHA IV (14:08)
[2023-10-27 14:31] VITALS: BP 147/76; PULSE 68; TEMP 36.4; O2SAT 98
[2023-11-03 13:40] VITALS: BP 146/82; PULSE 74; TEMP 36.6; O2SAT 94
[2023-11-03] MEDS: ALPHA IV (14:15)
[2023-11-03] MEDS: PROTEINASE INHIBITOR IV (14:15)
--- NOTE | 2023-11-03 14:48 | PC.NURSE ---
1340: Pt. to [facility] amb. for weekly infusion. Weight obtained. Seated in recliner. VSS. IV initiated to right forearm, see documentation. Pt. tolerates without c/o. Given water. Denies needs.
--- NOTE | 2023-11-03 14:52 | PC.NURSE ---
1440: Prolastin completed without s&s of adverse reaction. IV d/c'd, pressure to site. D/c'd amb. to home.
[2023-11-10 13:51] VITALS: BP 134/81; PULSE 72; TEMP 36.6; O2SAT 95
--- NOTE | 2023-11-10 14:02 | PC.NURSE ---
0755 Arrival ambulatory to chair 1. alert oriented. #24 IV initiated rt forearm on 1 attempt, tolerated well.
[2023-11-10] MEDS: PROTEINASE INHIBITOR IV (14:22)
[2023-11-10] MEDS: ALPHA IV (14:22)
--- NOTE | 2023-11-10 14:48 | PC.NURSE ---
1445 infusion completed. IV dc'd catheter intact. site clear
== END 2023-11-12 23:59 | disposition home or self-care (01) ==
LOC: INF 07:34
PROVIDERS: PCP Family Medicine; Visit Provider Internal Medicine
DX: E88.01 Alpha-1-antitrypsin deficiency (principal); J43.8 Other emphysema
CPT/HCPCS: 96365; J0256

== ENCOUNTER 2023-11-25 07:43 | Outpatient (OUT) | payer MEDICARE, OTHER, SELFPAY ==
--- OUTSIDE RECORDS SUMMARY | 2023-11-25 07:46 | XMS_ITS ---
Patient Summarization (C-CDA 2.1 CCD) Created on: November 25, 2023 KIRBYCAMMY RUBI Moralez : 1945 Sex: Male Author Organization Sample organization Care Team Providers Care Circulation Manager Name Role Phone Brunilda Ly DO Primary Care Provider SAMSA ., ANA Attending Unavailable SAMSA ., [...] Care Unavailable DR ANDRE ORELLANA Consulting Unavailable ESTEBAN, DR ANDRE Frazier Attending Unavailable DR ANDRE ORELLANA Admitting Unavailable [...] Admitting Unavailable SAMSA ., ANA Consulting Unavailable [facility], DOCTOR Primary Care Unavailable Brunilda Ly DO Primary Care Provider [phone] Mak Hubbard Primary Care Physician SRINIVASAN RAHMAN Attending Unavailable MINGO, BRUNILDA Primary Care Unavailable MINGO, BRUNILDA Referring Unavailable SRINIVASAN RAHMAN Admitting Unavailable MINGO, BRUNILDA Primary Care Unavailable SRINIVASAN RAHMAN W Admitting Unavailable SRINIVASAN RAHMAN Attending Unavailable Mak Hubbard Attending Unavailable Mak Hubbard Attending Unavailable Andre ORELLANA Attending Unavailable Shady MIRAMONTES Attending Unavailable Mak Hubbard Admitting Unavailable Mak Hubbard Attending Unavailable Mak Hubbard Attending Unavailable Mak Hubbard Admitting Unavailable Mak Hubbard Attending Unavailable Mak Hubbard Admitting Unavailable Mak Hubbard Admitting Unavailable Mak Hubbard Admitting Unavailable Shady MIRAMONTES Attending Unavailable MIRAMONTES, Shady Easton Attending Unavailable MIRAMONTES, Shady R Attending Unavailable MIRAMONTES Shady R Referring Unavailable MIRAMONTES, Shady R Referring Unavailable MIRAMONTES, Shady R Attending Unavailable Mak Hubbard Attending Unavailable Mak Hubbard Attending Unavailable Mak Hubbard Attending Unavailable Mak Hubbard Attending Unavailable Allergies Allergy Classification Reported Allergen(s) Allergy Type Date of Onset Reaction(s) Facility Opioid Agonists (1 source) oxyCODONE; Translations: [oxyCODONE] Drug Allergy [facility] Repository Penicillins (antibiotic) (1 source) Penicillins; Translations: [penicillins] Drug Allergy [facility] Repository Sulfonamides (antibiotic) (1 source) Sulfonamides (Antibiotic); Translations: [sulfa drugs] Drug Allergy [facility] Repository (4 sources) Codeine Drug Allergy 10-30-19 22 Hallucinating [facility] (10 sources) Penicillins; Translations: [penicillins] Propensity to adverse reactions to drug 03-10-20 15 Cutaneous eruption (morphologic abnormality) [facility] Work Phone: (3 sources) Sulfonamides (Antibiotic) Propensity to adverse reactions to drug 10-30-19 [facility] Work Phone: (5 sources) oxyCODONE; Translations: [oxycodone] Drug Allergy Dizziness [facility] (1 source) Codeine Drug Allergy 03-10-20 15 [facility] Repository (4 sources) Sulfonamides (Antibiotic); Translations: [sulfa drugs] Propensity to adverse reactions to drug [facility] [place] Encounters Encounter Date Encounter Type Care Provider Facility Start: 10-09-2024 ambulatory Mak Hubbard Facility :[facility] Start: 01-03-2024 ambulatory Mak Hubbard Facility :[facility] Start: 12-02-2023 ambulatory Shady Rao ty:CD:[id number] Start: 11-04-2023 End: 11-04-2023 ambulatory Shady MIRAMONTES Facility:CD:[id number] Start: 10-26-2023 End: 10-26-2023 ambulatory Mak Hubbard Facility:[facility] Start: 10-25-2023 End: 10-25-2023 ambulatory [facility] Work Phone: Start: 10-25-2023 End: 10-25-2023 Patient encounter procedure [facility] Physician [facility] Vascular Surgery Work Phone: Start: 10-21-2023 ambulatory Shady Rao ty:CD:[id number] Start: 10-19-2023 End: 10-19-2023 ambulatory Mak Hubbard Facility:CD:[id number] Start: 10-11-2023 End: 10-11-2023 ambulatory Shady MIRAMONTES Facility:[facility] Start: 10-11-2023 End: 10-11-2023 Patient encounter procedure Shady MIRAMONTES [facility] Start: 10-07-2023 End: 10-18-2023 ambulatory Mak Hubbard Facility:CD:[id number] Start: 10-04-2023 End: 10-04-2023 Lab Drop off Mak Hubbard [facility] Start: 10-04-2023 End: 10-05-2023 ambulatory Shady MIRAMONTES Facility:CD:[id number] Start: 08-30-2023 ambulatory Andre ORELLANA Facility :[facility] Start: 07-08-2023 ambulatory Mak Hubbard Facility: [facility] [place] Start: 07-08-2023 End: 07-08-2023 ambulatory BRUNILDA [facility] Start: 07-08-2023 End: 07-08-2023 Subsequent hospital visit by physician Srinivasan Rahman DPLynn Work Phone: [facility] Comment on above: Mass of skin of toe of left foot Start: 07-06-2023 End: 07-06-2023 Lab Drop off Mak Hubbard [facility] Start: 07-06-2023 End: 07-06-2023 ambulatory Mak Hubbard [place] Start: 06-29-2023 End: 07-04-2023 ambulatory SRINIVASAN RAHMAN [facility] Start: 06-29-2023 End: 07-03-2023 Subsequent hospital visit by physician Srinivasan Rahman DPLynn Work Phone: [facility] Start: 06-15-2023 End: 06-15-2023 ambulatory Mak Hubbard Facility:[facility] [place] Start: 10-14-2022 End: 11-11-2022 ambulatory [...] 04-17-2022 End: 04-17-2022 Patient encounter procedure Andre Frazier ESTEBAN [facility] [place] Start: 04-14-2022 End: 04-15-[address] DOCTOR HERNANDEZ Facility:[facility] Start: 04-14-2022 End: 05-12-2022 ambulatory ANA SAMSA . Facility:[facility] Start: 03-17-2022 End: 04-07-2022 ambulatory ANA SAMSA . Facility:[facility] Start: 02-17-2022 End: 03-10-2022 ambulatory ANA SAMSA . Facility:[facility] Start: 01-13-2022 End: 02-10-2022 ambulatory ANA SAMSA . Facility:[facility] Start: 12-16-2021 End: 01-06-2022 ambulatory ANA SAMSA . Facility:[facility] Start: 11-13-2021 End: 11-13-2021 Subsequent hospital visit by physician Srinivasan Rahman DPM Work Phone: [facility] Immunizations Immunization Date Immunization Notes Care Provider [facility] 04-09-2023 influenza virus vaccine, unspecified formulation Mak Hubbard [facility] 03-26-2023 pneumococcal 20-alexandre nt conjugate vaccine Mak Hubbard [facility] 03-26-2023 tetanus toxoid, redu pj diphtheria toxoid, and acellular pertussis vaccine, adsorbed Mak Hubbard [facility] 05-26-2019 influenza virus vaccine, unspecified formulation Mak Hubbard [facility] 03-14-2018 influenza virus vaccine, unspecified formulation Mak Hubbard [facility] 03-14-2018 pneumococcal conjuga te vaccine, 13 valent Mak Hubbard [facility] 01-26-2018 pneumococcal conjuga te vaccine, 13 amy Hubbard [facility] 03-08-2012 pneumococcal polysaccharide vaccine, 23 valscooby Hubbard [facility] NEGATED: Highlighted row has not occurred!04-17-2022 SARS-CoV-2 mRNA (tokrunaleran 5y-11y) vaccine Andre ORELLANA [facility] Medications Current Medications Medication Drug Class(es) Dates [...] 2 puff(s) by in halation at bedtime Lunkxvo-Qzvbxhtbaah-Qvsnyhxeti (BREZTRI AEROSPHERE) 160-9-4.8 MCG/ACT AERO Inhale 2 [...] Daily, # 90 tab(s), Refills(s) 0, Pharmacy: [id number], 173, cm, 07/06/23 13:18:00 EST, Height/Length Dosing, 99.5, kg, 07/06/23 13:18:00 EST, Weight Dosing Start Date: 09/22/23 Status: Ordered Start: 07-06-2023 take 1 tablet by alejo th once daily in the morning levothyroxine 25 mcg (0.025 mg) Tab 25 mcg = 1 tab(s), Oral, qAM, # 90 tab(s), Refills(s) 0, Pharmacy: [id number], 173, cm, 07/06/23 13:18:00 EST, Height/Length [...] in dextrose 5 % 50 mL IVPB Payers Date Payer Category Payer Medicare [id number] 2007 Unknown [id number] 5 1959 Medicare [id number] 5 1959 Unknown [id number] 1945 Unknown [id number] 2.16.84 0.1.422041.3.579.2.593 1945 Unknown [id number] 2.16.84 0.1.093554.3.579.2.593 1945 Unknown [id number] 2.16.84 0.1.396013.3.579.2.593 1945 Unknown [id number] 2.16.84 0.1.592825.3.579.2.593 1945 Unknown [id number] 2.16.84 0.1.190870.3.579.2.593 1945 Unknown [id number] 2.16.84 0.1.728363.3.579.2.593 1945 Unknown [id number] 2.16.84 0.1.226477.3.579.2.593 1945 Unknown [id number] 2.16.84 0.1.873298.3.579.2.593 1945 Unknown [id number] 2.16.84 0.1.240295.3.579.2.593 1943 Unknown [id number] 2.16.84 0.1.572821.3.579.2.593 1945 Unknown [id number] 2.16.84 0.1.100346.3.579.2.593 1943 Unknown [id number] 2.16.84 0.1.568963.3.579.2.593 1943 Unknown [id number] 2.16.8 40.1.902264.3.579.2.173 1945 Unknown [id number] 2.16.8 40.1.004525.3.579.2.173 1943 Unknown [id number] 2.16.8 40.1.354614.3.579.2.727 1945 Unknown [id number] 2.16.8 40.1.969542.3.579.2.727 1945 Unknown [id number] 2.16.8 40.1.120227.3.579.2.727 1943 Unknown [id number] 2.16.8 40.1.694799.3.579.2.727 1943 Unknown [id number] 2.16.8 40.1.338915.3.579.2.727 1943 Unknown [id number] 2.16.8 40.1.069210.3.579.2.727 1943 Unknown [id number] 2.16.8 40.1.449259.3.579.2.727 1943 Unknown [id number] 2.16.8 40.1.893886.3.579.2.727 1943 Unknown [id number] 2.16.8 40.1.432008.3.579.2.727 1943 Unknown [id number] 2.16.8 40.1.546096.3.579.2.727 1945 Unknown [id number] 2.16.8 40.1.559545.3.579.2.727 1945 Unknown [id number] 2.16.8 40.1.391718.3.579.2.727 1945 Unknown [id number] 2.16.8 40.1.154841.3.579.2.727 Medicare Medicare Outpatient [id number] [id number] Self-pay Self Pay [id number] Plan of Treatment Date Care Activity Detail Author Start: 03-26-2033 DTaP/Tdap/Td vaccine (2 - Td or Tdap) DTaP/Tdap/Td vaccine (2 - Td or Tdap) [facility] Start: 07-08-2023 End: 07-08-2023 Admission to same day surgery center 07/08/2023 8:00 AM EST - 07/08/2023 9:05 AM EST Surgery [facility] [address] [place] [address] Srinivasan Rahman, DPLynn [address] [place] [address] TOE HAMMER REPAIR-DISTAL SYNES PROCEDURE 5TH DIDGET [facility] Comment on above: TOE HAMMER REPAIR-DI STAL SYNES PROCEDURE 5TH DIDGET Start: 07-08-2023 End: 07-08-2023 Anesthesia consultation 07/08/2023 8:00 AM EST Anesthesia Event [facility] [address] [place] [address] Monse Dotson, RIB CHOPPER - IMAGING NURSE [address] [address] [address] [place] [address] [facility] Start: 07-08-2023 End: 07-08-2023 Correction [facility] Start: 07-08-2023 Subsequent hospital visit by physician 07/08/2023 8:00 AM EST Hospital Encounter [facility] [address] [place] [address] Srinivasan Rahman, DPM [address] [place] [address] [facility] Start: 05-10-2023 Annual Wellness Visi t (Medicare) Annual Wellness Visit (Medicare) [facility] Start: 02-12-2022 Influenza vaccination Flu vacc ine (Season Ended) [facility] Start: 11-13-2021 End: 11-13-2021 Correction [facility] FOOT BUNIONECTOMY Bone spur 11/13/2021 9:42 AM EDT [facility] Start: 01-08-2008 Pneumococcal 65+ yea rs Vaccine (1 - PCV) Pneumococcal 65+ years Vaccine (1 - PCV) [facility] Start: 2003 Respiratory Syncytia l Virus (RSV) or age 60 yrs+ (1 - 1-dose 60+ series) Respiratory Syncytial Virus (RSV) or age 60 yrs+ (1 - 1-dose 60+ series) [facility] Start: 1993 Shingles vaccine (1 of 2) Shingles vaccine (1 of 2) [facility] [employer] Start: 1983 Prostate specific antigen measurement Prostate Specific Antigen (PSA) Screening or Monitoring [facility] [employer] Start: 1962 DTaP/Tdap/Td vaccine (1 - Tdap) DTaP/Tdap/Td vaccine (1 - Tdap) [facility] Start: 1961 Hepatitis C screening Hepatitis C sc reen [facility] [employer] Start: 1955 Depression Screen Depression Screen [facility] Start: 01-08-1948 COVID-19 Vaccine (1) COVID-19 Vaccin e (1) [facility] [employer] Start: 1943 COVID-19 Vaccine (#1) COVID-19 Vacci ne (#1) [facility] [employer] aPTT in Blood by Coagulation assay APTT Lab Routine Mass of skin of toe of left foot Release Upon Ordering for 1 Occurrences starting 07[facility]08/2023 [facility] Comment on above: Release Upon Orderin g for 1 Occurrences starting 07/08/2023 Surgical Pathology Surgical Path ology Lab Routine Mass of skin of toe of left foot Release Upon Ordering for 1 Occurrences starting 07/08/2023 [facility] Work Phone: Comment on above: Release Upon Orderin g for 1 Occurrences starting 07/08/2023 Problems Problem Classification Problem Date Documented Date [...] nutritional; endocrine; and metabolic disorders (5 sources) Ydcuj-4-eovcgsqfbeq deficiency; Translations: [DYQYN-2-IDZVWRDLCVU DEFICIENCY] Onset: 09-09-2022 Chronic Other nutritional; endocrine; [...] Thyroid disorders (9 sources) Hypothyroidism 12-22-2018 Chronic Procedures Date Procedure Procedure Detail Performing Clinician Start: 06-29-2023 Ecg routine ecg w/le ast 12 lds w/i&r Srinivasan W Consolo DPM Work Phone: Start: 06-29-2023 Basic metabolic pane l calcium total Srinivasan W Consolo DPM Work Phone: Start: 04-14-2022 PSA screening ANA PARSON MSA . Comment on above: Performed By: #### P SAD #### [facility] [address] [place] [address] Dr. Padmini Parson Start: 02-26-2015 Robot assisted lapar oscopic radical prostatectomy Andre ORELLANA Start: 12-06-2014 Ultrasonography guid ed transrectal cryoablation of prostate Andre ESTEBAN Start: 06-14-2001 Transurethral prostatectomy Andreberkley ORELLANA Cataract (disorder) Andre ESTEBAN Cystoscopy Andre ORELLANA Hydrocelectomy Andre ORELLANA Repair of incisional hernia Andre ORELLANA Total thyroidectomy Andre ORELLANA Results Test Name Value Interpretation Reference Range Facil ity Consent for Procedure/Surger yon 11-16-2023 Consent for Procedure/Surgery [id number] #1.00TIFF Normal [facility] Lab Reportson 11-15-2023 Lab Reports [id number] #1.00TIFF Normal [facility] Operative Reporton Operative Report [id number]# 1.00TIFF [facility] RAD - MISCon 11-05-2023 RAD - MISC [id number]# 1.00TIFF [facility] Lab Reportson 11-04-2023 Lab Reports [id number] #1.00TIFF [facility] Consultation Noteon 11-01-19 Consultation Note [id number] #1.00TIFF [facility] Ambulatory Visit Summaryon 0 10-26-2023 Ambulatory Visit Summary RUBI FLORES :1945 Visit Date:10/26/2023 Ambulatory Visit Instructions Your Diagnosis Elevated BP without diagnosis of hypertension BMI 33.0-33.9,adult Class 1 obesity due to excess calories in adult Nonsmoker AAA (abdominal aortic aneurysm) Your Care Team Attending Physician - Mak Hubbard MD. Primary Care Physician - Mak Hubbard MD [...] Follow-Up Appointments Wednesday 2:00 PM EDT With: Stevie MORALES, Mak Shipman Where: [address] [address]- \.br\ Medications\.br\ What How Much When Instructions\.br\ [...] numbers. This can be done either in Maltese (U.S[place] or metric measurements. Note that charts and online BMI calculators are available to help you find your BMI quickly and easily without having to do these calculations yourself.\.br\ To calculate your BMI in Maltese (U.S.) measurements:\.br \ \.br\ 1. \.br\ Measure [...] Disease Control and Prevention: www.cdc.gov\.br\ ? \.br\ [place] Heart Association: www.heart.org\.br \ ? \.br\ National Heart, Lung, and Blood [place]: www.nhlbi.nih.gov \.br\ Summary\.br\ ? \.br\ Body mass index (BMI) is a number that is calculated from a person's weight and height.\.br\ ? \.br\ BMI may help estimate how much of a person's weight is composed of fat. BMI can help identify those who may be at higher risk for certain medical problems.\.br\ ? \.br\ BMI can be measured using Maltese measurements or metric measurements.\.br \ ? \.br\ BMI charts are used to identify whether you are underweight, normal weight, overweight, or obese.\.br\ This information is not intended to replace advice given to you by your health care provider. Make sure you discuss any questions you have with your health care provider.\.br\ Document Revised: 02/21/2020 Document Reviewed: 12/29/2019 [email or web address] Patient Education ? 2022 [employer].\.br\ \.br\ [facility] Family Medicine Office/Clini c Noteon 10-26-2023 Family Medicine Office/Clinic Note HPI Staff Rubi is an 78 year old male presenting for elevated BP, [facility] Patient is here for follow up on [...] Recorded pneumococcal 23-valent vaccine 03/08/2012 Recorded Normal [facility] Comment on above: Result Comment: Elec tronically Signed By: Stevie MORALES, Mak Grvoe.br\Date and Time Signed: 10/26/23 13:33 EDT Living Will/POAon 10-26-2023 Living Will/POA [id number]# 1.00TIFF [facility] Patient Educationon 10-26-19 24 Patient Education Nutrition BMI for Adults What [...] numbers. This can be done either in Maltese (U.S.) or metric measurements. Note that charts and online BMI calculators are available to help you find your BMI quickly and easily without having to do these calculations yourself. To calculate your BMI in Maltese (U.S.) measurements: 1. Measure your weight in [...] for Disease Control and Prevention: www.cdc.gov ? [place] Heart Association: www.heart.org ? National Heart, Lung, and Blood [place]: www.nhlbi.nih.gov Summary ? Body mass index (BMI) is a number that is calculated from a person's weight and height. ? BMI may help estimate how much of a person's weight is composed of fat. BMI can help identify those who may be at higher risk for certain medical problems. ? BMI can be measured using Maltese measurements or metric measurements. ? BMI charts are used to identify whether you are underweight, normal weight, overweight, or obese. This information is not intended to replace advice given to you by your health care provider. Make sure you discuss any questions you have with your health care provider. Document Revised: 02/21/2020 Document Reviewed: 12/29/2019 [email or web address] Patient Education ? 2022 [employer]. [facility] Physician Referralon 024 Physician Referral [id number] #1.00TIFF [facility] Population Healthon 10-12-19 24 Population Health Case Information Case Priority: None Programs: -- Referral Source: Business Office Technology Instructor Referral Reason: Care coordination Case Type: Transition [...] (min): 2 Outcome: Case discussion Contact Type: continuous improvement coordinator Contact Name: Kashmir Hess Notes: TCM#2- see tcm note. Created By: Kashmir Hess Date: October 07, 2023 Method: Phone call Type: Outbound Duration (min): 8 Outcome: Case discussion Contact Type: continuous improvement coordinator Contact Name: Kashmir Hess Notes: TCM#1- see tcm note. Created By: Kashmir Hess [facility] Consent for Procedure/Surger yon 10-11-2023 Consent for Procedure/Surgery [id number] #1.00TIFF [facility] Population Health 10-07-19 Population [facility] Case Information Case Priority: None Programs: -- Referral Source: Business Office Technology Instructor Referral Reason: Care coordination Case Type: Transition [...] Care Plan Progress Note Admit Date: 10/04/23 [facility] Date of Discharge: 10/05/23 [facility] Follow-up appointment scheduled? no Did you [...] call. Readmission risk unavailable. Patient presented to [facility] with abd. pain was dx with [...] (min): 8 Outcome: Case discussion Contact Type: continuous improvement coordinator Contact Name: Kashmir Hess Notes: TCM#1- see tcm note. Created By: Kashmir Hess [facility] RAD - MISCon 10-07-2023 RAD - MISC [id number] #1.00TIFF [facility] Consent for Procedure/Surger yon 10-06-2023 Consent for Procedure/Surgery [id number] #1.00TIFF [facility] Consultation Noteon 10-06-19 Consultation Note [id number] #1.00TIFF Normal [facility] ECG 12-Leadon 10-06-2023 ECG 12-Lead [id number] #1.00TIFF [facility] Insurance Correspondence Off iceon 10-06-2023 Insurance Correspondence Office [id number] #1.00TIFF [facility] Lab Reportson 10-06-2023 Lab Reports [id number] #1.00TIFF [facility] Operative Reporton Operative Report [id number] #1.00TIFF [facility] Outside Hospital Correspo ndenceon 10-06-2023 Outside Hospital Correspondence [id number] #1.00TIFF [facility] Consultation Noteon 10-05-19 Consultation Note [id number] #1.00TIFF Normal [facility] ED Note-Physicianon 10-05-19 ED Note-Physician [id number] #1.00TIFF [facility] Family Medicine Office/Clini c Noteon 10-05-2023 [...] for MERS/COVID-19 : N/A Pat Ramesh LPN Sveta 10/04/2023 13:26 EDT Medicare/Medicaid Summary Blood Pressure Location : Right arm Blood Pressure Position : Sitting O2 Sat Resting/Exertion Alpha : Resting Peripheral Pulse Rate : 62 bpm Respiratory Rate : 16 br/min SpO2 : 96 % Pat Ramesh LPN Sveta 10/04/2023 16:39 EDT Chief Complaint : Medicare [...] : 162 mmHg (HI) Pat Ramesh LPN Sveta 10/04/2023 13:26 EDT Diastolic Blood Pressure : 98 mmHg (HI) Pat Ramesh LPN Sveta 10/04/2023 16:39 EDT Pain Present : No actual or suspected pain Pat Ramesh LPN Sveta 10/04/2023 13:26 EDT Hearing and Vision Screening FT FT Whisper Test Comments : No deficits noted. Vision Screen Comments : Wears corrective lenses, follows up with [facility] for eye exams. 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 [facility] Comment on above: Result Comment: Elec tronically Signed By: Mak Hubbard MD\.br\Date and Time Signed: 10/05/23 08:37 EDT\.br\Electronically Co-Signed By: Pat Ramesh LPN\.br\Date and Time Co-Signed: 10/04/23 17:[address] - [address] Reporton 10-05-[address] - [address] Report [id number] #1.00TIFF [facility] Screenson 10-05-2023 Screens [id number] #1.00TIFF [facility] Ambulatory Visit Summaryon 0 10-04-2023 Ambulatory Visit Summary RUBI FLORES :1945 Visit Date:10/04/2023 Ambulatory Visit Instructions Your [...] Follow-Up Appointments Wednesday 2:45 PM EDT With: Mak Hubbard MD Where: [facility] Invalid Interpretation Code [address] [place] [address]- \.br\ Wednesday 1:00 PM EDT \.br\ With:\.br\ Where: [facility] CHEMISTRYOrdered By: SYSTEM SYSTEM on 10-04-2023 Cholesterol [...] High 7 - 40 mg/dL Remisol Chem Prostate specific Ag [Mass/Vol] ng/mL Low 0.1 - 3.5 ng/mL [facility] Comment on above: Interpretive Data: T he concentration of PSA determined by different manufacturers can vary due to differences in assay methods and reagent specificity. Values obtained from different assay methods cannot be used interchangeably. The methodology used for this result was chemiluminescence using [employer]'s Access Hybritech PSA reagent. Triglyceride [Mass/Vol] 206 mg/dL High <=149mg/dL [facility] Chem Lipid Panelon 10-04-2023 Cholesterol [Mass/Vol] 215 mg/dL High 120-200 [facility] Comment on above: Performed By: #### 2 [id number] #### [facility] [address] [place] [address] Cholesterol in HDL [Mass/Vol] 34 mg/dL Invalid Interpretation Code [facility] Comment on above: Result Comment: '>= 60 LOW RISK' '<= 40 HIGH RISK' Performed By: #### 2 [id number] #### [facility] [address] [place] [address] Cholesterol in LDL [Mass/Vol] 164 mg/dL High <=129 [facility] Comment on above: Performed By: #### 2 [id number] #### [facility] [address] [place] [address] Cholesterol in VLDL [Mass/Vol] 41 mg/dL High 7-40 [facility] Comment on above: Performed By: #### 2 700418 #### [facility] [address] [place] [address] Triglyceride [Mass/Vol] 206 mg/dL High <=149 [facility] Comment on above: Performed By: #### 2 [id number] #### [facility] [address] [place] [address] Operative Reporton 4 Operative Report [id number] Normal [facility] PSA Screen, Totalon 10-04-19 24 Prostate specific Ag [Mass/Vol] ng/mL Low 0.1-3.5 [facility] Comment on above: Result Comment: The concentration of PSA determined by different manufacturers can vary due to differences in assay methods and reagent specificity. Values obtained from different assay methods cannot be used interchangeably. The methodology used for this result was chemiluminescence using [employer]'s Access Hybritech PSA reagent. Performed By: #### 1 [id number], 9210309, 11162808, 8562120 #### [facility] [address] [place] [address] Patient Educationon 10-04-19 Patient Education Cardiovascular Hypertension, Adult High blood [...] oz glass (more content not included)... Normal [facility] OPERATIVE REPORTon OPERATIVE REPORT [address] [address] OPERATIVE REPORT PATIENT NAME: RUBI FLORES : 1945 MED REC NO: [id number] ROOM: ACCOUNT NO: [id number] ADMIT DATE: 07/08/2023 PROVIDER: Srinivasan Rahman DPM DATE OF PROCEDURE: 07/08/2023 SURGEON: Srinivasan Rahman DPM. POT FIREMAN: Gabby. PREOPERATIVE DIAGNOSIS: Left foot fifth digit [...] all correct. SRINIVASAN RAHMAN DPM JANN/[email or web address] Doc#: [id number] CC: [facility] Surgical Pathology Reporton 07-08-2023 Surgical Pathology Report (NOTE) Path Number: [id number] -- Diagnosis -- LEFT FIFTH TOE (DISTAL), AMPUTATION: - BENIGN BONE AND CARTILAGE WITH NONSPECIFIC REACTIVE FEATURES (CLINICAL HAMMERTOE). 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 - NEGATIVE FOR OSTEOMYELITIS AND MALIGNANCY. Andrew Norton M.D. Electronically Signed [facility]/07/09/2023 Clinical Information Pre-op Diagnosis: MASS OF [...] Microscopic Description Microscopic examination performed. Processing Lab: [address] [address] Interpretation Performed at [address] [address] SURGICAL PATHOLOGY CONSULTATION Patient Name: RUBI FLORES. [facility] Rec: [id number] [facility] [employer] [facility] ANATOMIC PATHOLOGY [facility]. [place], [place] [address] [facility] Ambulatory Visit Summaryon 0 07-06-2023 Ambulatory Visit [...] MORALES, Andre Frazier Where: [facility] Normal [facility] CBC w/ Auto Diffon 4 Basophil Absolute 0.0 E9/L Normal 0.0-0.2 [facility] Comment on above: Performed By: #### 1 [id number], 2467990, 62786014, 4648807 #### [facility] [address] [place] [address] Basophils/100 WBC (Bld) 0.7 % Normal 0.0-2.0 [facility] Comment on above: Performed By: #### 1 6724438, 5717841, 05684130, 5944241 #### [facility] [address] [place] [address] Eos Absolute 0.2 E9/L Normal 0.0-0.5 [facility] Comment on above: Performed By: #### 1 9394392, 6112570, 37557668, 6138574 #### [facility] [address] [place] [address] Eosinophils/100 WBC (Bld) 3.1 % Normal 0.0-8.0 [facility] Comment on above: Performed By: #### 1 6575353, 4413704, 48230652, 0198352 #### [facility] [address] [place] [address] Erythrocyte distribution width (RBC) [Ratio] 13.9 % Normal 10.9-14.2 [facility] Comment on above: Performed By: #### 1 4647101, 4805045, 62064077, 6822551 #### [facility] [address] [place] [address] Hematocrit (Bld) [Volume fraction] 47.0 % Normal 37.7-49.0 [facility] Comment on above: Performed By: #### 1 6624000, 5160984, 88270533, 9899179 #### [facility] [address] [place] [address] Hemoglobin (Bld) [Mass/Vol] 15.5 g/dL Normal 13.5-17.5 [facility] Comment on above: Performed By: #### 1 3535955, 2527651, 45407501, 4194695 #### [facility] [address] [place] [address] Lymph Absolute 1.1 E9/L Normal 1.0-4.0 [facility] Comment on above: Performed By: #### 1 0025715, 9548355, 69277752, 6124350 #### [facility] [address] [place] [address] Lymphocytes/100 WBC (Bld) 17.4 % Normal 14.0-50.0 [facility] Comment on above: Performed By: #### 1 8116533, 6523846, 61976656, 0374444 #### [facility] [address] [place] [address] MCH (RBC) [Entitic mass] 30.7 pg Normal 27.0-34.0 [facility] Comment on above: Performed By: #### 1 9821403, 7315808, 19900530, 8974993 #### [facility] [address] [place] [address] MCHC (RBC) [Mass/Vol] 33.0 g/dL Normal 31.4-36.0 [facility] Comment on above: Performed By: #### 1 7910926, 7001619, 70541007, 6097788 #### [facility] [address] [place] [address] MCV (RBC) [Entitic vol] 93.1 fL Normal 80.0-100.0 [facility] Comment on above: Performed By: #### 1 6678071, 7422964, 26105085, 3222314 #### [facility] [address] [place] [address] [place] Absolute 0.7 E9/L Normal 0.2-1.0 [facility] Comment on above: Performed By: #### 1 0981064, 8213493, 60048738, 9633738 #### [facility] [address] [place] [address] Monocytes/100 WBC (Bld) 10.5 % Normal 4.0-14.0 [facility] Comment on above: Performed By: #### 1 7232107, 8813478, 18831306, 4982712 #### [facility] [address] [place] [address] Neutro Absolute 4.3 E9/L Normal 2.0-7.5 [facility] Comment on above: Performed By: #### 1 7129400, 2172945, 17341580, 7738828 #### [facility] [address] [place] [address] Neutro Auto 68.3 % Normal 36.0-75.0 [facility] Comment on above: Performed By: #### 1 2004538, 7723690, 03785127, 5155799 #### [facility] [address] [place] [address] Platelet 137.0 E9/L Low 150.0-500.0 [facility] Comment on above: Result Comment: Veri fied with slide review Performed By: #### 1 6220832, 7851338, 18646810, 6024474 #### [facility] [address] [place] [address] Platelet mean volume (Bld) [Entitic vol] 10.3 fL Normal 6.4-10.8 [facility] Comment on above: Performed By: #### 1 0962115, 0654473, 48837856, 4962442 #### [facility] [address] [place], [place] [address] RBC 5.1 E12/L Normal 4.3-5.9 [facility] Comment on above: Performed By: #### 1 8092554, 8245819, 87707704, 6647701 #### [facility] [address] [place], [place] [address] WBC 6.3 E9/L Normal 4.0-11.0 [facility] Comment on above: Result Comment: Veri fied with slide review Performed By: #### 1 4434293, 0352472, 49336118, 8002537 #### [facility] [address] [place] [address] CHEMISTRYOrdered By: SYSTEM SYSTEM on 07-06-2023 Albumin [...] 07-06-2023 Albumin [Mass/Vol] 4.2 g/dL Normal 3.3-5.0 [facility] Comment on above: Performed By: #### 1 5179201, 3817221, 79165317, 6668863 #### [facility] [address] [place] [address] Albumin/Globulin [Mass ratio] 2.1 {ratio} Normal 1.1-2.2 [facility] Comment on above: Performed By: #### 1 9497882, 1797880, 71142821, 6852344 #### [facility] [address] [place] [address] Alk Phos 100 Int._Unit/L High 21-98 [facility] Comment on above: Performed By: #### 1 0782577, 4231181, 99226048, 1091246 #### [facility] [address] [place] [address] ALT 25 Int._Unit/L Normal 6-46 [facility] Comment on above: Performed By: #### 1 5914798, 1123774, 20087827, 5304878 #### [facility] [address] [place] [address] Anion gap [Moles/Vol] 10 mmol/L Normal 6-16 [facility] Comment on above: Performed By: #### 1 2682028, 3345339, 82052615, 0496043 #### [facility] [address] [place] [address] AST 22 Int._Unit/L Normal 5-43 [facility] Comment on above: Performed By: #### 1 3681471, 4078240, 37579150, 2164172 #### [facility] [address] [place] [address] Bili Total 0.6 mg/dL Normal 0.0-1.1 [facility] Comment on above: Performed By: #### 1 1604887, 2691822, 87734264, 2858451 #### [facility] [address] [place] [address] BUN/Creat Ratio 18 No Units Normal 10-20 [facility] Comment on above: Performed By: #### 1 2552018, 9885081, 88091764, 5730758 #### [facility] [address] [place] [address] Calcium [Mass/Vol] 9.3 mg/dL Normal 8.9-11.1 [facility] Comment on above: Performed By: #### 1 6946021, 6670670, 03054000, 7976842 #### [facility] [address] [place] [address] Chloride [Moles/Vol] 105 mmol/L Normal 101-111 [facility] Comment on above: Performed By: #### 1 7579813, 7851827, 46530900, 7246380 #### [facility] [address] [place] [address] CO2 [Moles/Vol] 27 mmol/L Normal 21-31 [facility] Comment on above: Performed By: #### 1 8921462, 6297437, 76429099, 0184160 #### [facility] [address] [place] [address] Creatinine [Mass/Vol] 0.8 mg/dL Normal 0.5-1.3 [facility] Comment on above: Performed By: #### 1 6138067, 6807768, 48123312, 7881738 #### [facility] [address] [place] [address] Globulin (S) [Mass/Vol] 2.0 g/dL Normal 1.4-4.0 [facility] Comment on above: Performed By: #### 1 2073878, 4939858, 72909764, 8106333 #### [facility] [address] [place] [address] Glucose [Mass/Vol] 96 mg/dL Normal 55-199 [facility] Comment on above: Performed By: #### 1 6424119, 1952663, 96426239, 5567593 #### [facility] [address] [place] [address] Potassium [Moles/Vol] 4.4 mmol/L Normal 3.5-5.3 [facility] Comment on above: Performed By: #### 1 6201402, 0247134, 11270070, 0035056 #### [facility] [address] [place] [address] Protein [Mass/Vol] 6.2 g/dL Normal 6.0-7.8 [facility] Comment on above: Performed By: #### 1 9674913, 2375630, 26606953, 8715142 #### [facility] [address] [place] [address] Sodium [Moles/Vol] 138 mmol/L Normal 135-145 [facility] Comment on above: Performed By: #### 1 3712315, 0302759, 87692981, 8898004 #### [facility] [address] [place] [address] Urea nitrogen [Mass/Vol] 14 mg/dL Normal 5-21 [facility] Comment on above: Performed By: #### 1 3625632, 7739268, 72645519, 2284863 #### [facility] [address] [place] [address] Family Medicine Office/Clini c Noteon 07-06-2023 Family [...] obstructive pulmonary disease, unspecified) - Sees Dr. Hernández - Follow up as needed - Please get your records from [facility] Ordered: CBC w/ Auto Diff Comprehensive Metabolic [...] qAM, # 90 tab(s), Refills(s) 0, Pharmacy: [facility], 173, cm, 07/06/23 13:18:00 EST, Height/Length [...] pneumococcal 23-valent vaccine 03/08/2012 Recorded Normal [facility] Comment on above: Result Comment: Elec tronically [...] Normal 80.0 - 100.0 fL Remisol Heme [place] Absolute 0.7 E9/L Normal 0.2 - 1.0 [...] 07-06 TSH Qn 0.82 m[IU]/L Normal 0.34-5.60 [facility] Comment on above: Performed By: #### 1 2637065, 3890578, 13484003, 6338338 #### [facility] [address] [place] [address] eGFRon 07-06-2023 eGFR 89 mL/min/1.73 m2 Normal >=59 [facility] Comment on above: Order Comment: Order added by Discern Expert. Performed By: #### 1 1237299, 3696838, 44119474, 1235911 #### [facility] [address] [place] [address] EKG 12 LeadOrdered By: Escobar Sanders on 06-30-2023 Atrial Rate 68 BPM [employer] Work Phone: P [place] 87 degrees [employer] Work Phone: P-R Interval 176 ms [employer] Work Phone: Q-T Interval 426 ms [employer] Work Phone: QRS Duration 144 ms [employer] Work Phone: QTc Calculation (Bazett) 452 ms [employer] Work Phone: R [place] -67 degrees [employer] Work Phone: [phone] T [place] 15 degrees [employer] Work Phone: Ventricular Rate 68 BPM [facility] [employer] Work Phone: [employer] Work Phone: EKG 12 Leadon 06-30-2023 Normal sinus rhythm Left axis deviation Right bundle branch block Abnormal ECG No previous ECGs available Confirmed by KARL SANDERS ([id number]) on 06/30/2023 12:04:49 AM [facility] RADIOLOGY Karl Sanders MD - 06/30/2023 Normal sinus rhythm Left axis deviation Right bundle branch block Abnormal ECG No previous ECGs available Confirmed by KARL SANDERS ([id number]) on 06/30/2023 12:04:49 AM [facility] Basic Metabolic Panelon 06-14 Anion gap [Moles/Vol] 8 mmol/L Low 9 - 17 mmol/L [facility] Calcium [Mass/Vol] 9.3 mg/dL 8.6 - 10.4 mg/dL [facility] Chloride [Moles/Vol] 106 mmol/L 98 - 107 mmol/L [facility] CO2 [Moles/Vol] 25 mmol/L 20 - 31 mmol/L [facility] Creatinine [Mass/Vol] 0.8 mg/dL 0.7 - 1.2 mg/dL [facility] GFR/1.73 sq M.predicted MDRD (S/P/Bld) [Vol rate/Area] - PINF [facility] Comment on above: These results are not [...] [Mass/Vol] 99 mg/dL 70 - 99 mg/dL [facility] Interpretation and review of laboratory results Abnormal [facility] Potassium [Moles/Vol] 4.6 mmol/L 3.7 - 5.3 mmol/L [facility] Sodium [Moles/Vol] 139 mmol/L 135 - 144 mmol/L [facility] Urea nitrogen [Mass/Vol] 17 mg/dL 8 - 23 mg/dL [facility] Urea nitrogen/Creatinine [Mass ratio] 21 mg/mg High 9 - 20 [facility] Basic Metabolic Profon 06-29 Anion gap [Moles/Vol] 8 mmol/L Low -17 [facility] Comment on above: Performed By: #### C BC, BMP #### [facility] [address] [place] [address] [employer] Operator: Rubi Almaraz MD BUN/CRE Ratio 21 High 9-20 [facility] Comment on above: Performed By: #### C BC, BMP #### [facility] [address] [place], [place] [address] [employer] Operator: Rubi Almaraz MD Calcium [Mass/Vol] 9.3 mg/dL Normal 8.6-10.4 [facility] Comment on above: Performed By: #### C BC, BMP #### [facility] [address] [place], [place] [address] [employer] Operator: Rubi Almaraz MD Chloride [Moles/Vol] 106 mmol/L Normal 98-107 [facility] Comment on above: Performed By: #### C BARBARA, BMP #### [facility] [address] [place], [place] [address] [employer] Operator: Rubi Almaraz MD CO2 [Moles/Vol] 25 mmol/L Normal 20-31 [facility] Comment on above: Performed By: #### C BARBARA, BMP #### [facility] [address] [place] [address] [employer] Operator: Rubi Almaraz MD Creatinine [Mass/Vol] 0.8 mg/dL Normal 0.7-1.2 [facility] Comment on above: Performed By: #### C BARBARA, BMP #### [facility] [address] [place], [place] [address] [employer] Operator: Rubi Almaraz MD GFR/1.73 sq M.predicted among non-blacks MDRD (S/P/Bld) [Vol rate/Area] mL/min/{1.73_m2} Normal >60 [facility] Comment on above: Result Comment: These [...] Performed By: #### C BC, BMP #### [facility] [address] [place], [place] [address] [employer] Operator: Rubi Almaraz MD Glucose [Mass/Vol] 99 mg/dL Normal 70-99 [facility] Comment on above: Performed By: #### C BC, BMP #### [facility] [address] [place], [place] [address] [employer] Operator: Rubi Almaraz MD Potassium [Moles/Vol] 4.6 mmol/L Normal 3.7-5.3 [facility] Comment on above: Performed By: #### C BC, BMP #### [place] [address] [place], [place] [address] [employer] Operator: Rubi Almaraz MD Sodium [Moles/Vol] 139 mmol/L Normal 135-144 [facility] Comment on above: Performed By: #### C BC, BMP #### [place] [address] [place], [place] [address] [employer] Operator: Rubi Almaraz MD Urea nitrogen [Mass/Vol] 17 mg/dL Normal 8-23 [facility] Comment on above: Performed By: #### C BC, BMP #### [facility] [address] [place], [place] [address] [employer] Operator: Rubi Almaraz MD CBCon 06-29-2023 Erythrocyte distribution width (RBC) [Ratio] 13.3 % 11.8 - 14.4 % [facility] Erythrocyte distribution width (RBC) [Ratio] 13.3 % Normal 11.8-14.4 [facility] Comment on above: Performed By: #### C BC, BMP #### [facility] [address] [place], [place] [address] [employer] Operator: Rubi Almaraz MD Hematocrit (Bld) [Volume fraction] 49.6 % 40.7 - 50.3 % [facility] Hematocrit (Bld) [Volume fraction] 49.6 % Normal 40.7-50.3 [facility] Comment on above: Performed By: #### C BC, BMP #### [facility] [address] [place], [place] [address] [employer] Operator: Rubi Almaraz MD Hemoglobin (Bld) [Mass/Vol] 16.6 g/dL 13.0 - 17.0 g/dL [facility] Hemoglobin (Bld) [Mass/Vol] 16.6 g/dL Normal 13.0-17.0 [facility] Comment on above: Performed By: #### C BARBARA, BMP #### [facility] [address] [place] [address] [employer] Operator: Rubi Almaraz MD MCH (RBC) [Entitic mass] 31.7 pg 25.2 - 33.5 pg [facility] MCH (RBC) [Entitic mass] 31.7 pg Normal 25.2-33.5 [facility] Comment on above: Performed By: #### C BARBARA, BMP #### [facility] [address] [place], [place] [address] [employer] Operator: Rubi Almaraz MD MCHC (RBC) [Mass/Vol] 33.5 g/dL 28.4 - 34.8 g/dL [facility] MCHC (RBC) [Mass/Vol] 33.5 g/dL Normal 28.4-34.8 [facility] Comment on above: Performed By: #### C BARBARA, BMP #### [facility] [address] [place] [address] [employer] Operator: Rubi Almaraz MD MCV (RBC) [Entitic vol] 94.7 fL 82.6 - 102.9 fL [facility] MCV (RBC) [Entitic vol] 94.7 fL Normal 82.6-102.9 [facility] Comment on above: Performed By: #### C BARBARA, BMP #### [facility] [address] [place], [place] [address] [employer] Operator: Rubi Almaraz MD NRBC Automated 0.0 per 100 WBC Normal 0.0 [facility] Comment on above: Performed By: #### C BARBARA, BMP #### [facility] [address] [place] [address] [place], [place] 270[address]683 [employer] Operator: Rubi Almaraz MD Nucleated RBC/100 WBC (Bld) [Ratio] 0.0 % 0.0 per 100 WBC [facility] Platelet mean volume (Bld) [Entitic vol] 12.0 fL 8.1 - 13.5 fL [facility] Platelet mean volume (Bld) [Entitic vol] 12.0 fL Normal 8.1-13.5 [facility] Comment on above: Performed By: #### C BARBARA, BMP #### [address] [place], [facility] [employer] Operator: Rubi Almaraz MD Platelets (Bld) [#/Vol] 156 10*3/uL [facility] Platelets (Bld) [#/Vol] 156 10*3/uL Normal 138-453 [facility] Comment on above: Performed By: #### C BARBARA, BMP #### [address] [place], [facility] [employer] Operator: Rubi Almaraz MD RBC (Bld) [#/Vol] 5.24 10*6/uL 4.21 - 5.77 m/uL [facility] RBC (Bld) [#/Vol] 5.24 10*6/uL Normal 4.21-5.77 [facility] Comment on above: Performed By: #### C BARBARA, BMP #### [address] [place], [place] [address] [employer] Operator: Rubi Almaraz MD WBC (Bld) [#/Vol] 6.9 10*3/uL Normal 3.5-11.3 [facility] Comment on above: Performed By: #### C BC, BMP #### [facility] [address] [place] [address] [employer] Operator: Rubi Almaraz MD WBC other (Bld) [#/Vol] 6.9 [employer] No Panel Informationon 06-29 [employer] Social History Date Type Detail Facility Start: 06-29-2023 Sex Assigned At Male F [facility] Start: 06-29-2023 History of Social function [employer] Start: 11-13-2021 End: 07-08-2023 Alcohol intake Ex-drinker (finding) [employer] Phone: Start: 11-03-2021 End: 11-13-2021 Exposure to SARS-CoV-2 (event) Not sure [employer] Phone: Start: 10-29-2021 End: 10-25-2023 Tobacco smoking status NHIS Never smoked tobacco [employer] Phone: Start: 10-29-2021 Tobacco use and exposure Smokeless tobacco non-user [employer] Phone: Start: 1945 Sex Assigned At Not on file B [facility] [employer] Phone: Start: 1945 Sex Assigned At Male F [facility] Tobacco smoking status Never [facility] Vital Signs Date Time Vital Sign Value Performing Clinician Facility 10-25-2023 11:37-0400 Body height 176.53 cm [facility] 10-25-2023 11:37-0400 Body mass index (BMI) [Ratio] 31.3 kg/m2 [facility] 10-25-2023 11:37-0400 Body temperature 97.8 [degF] [facility] 10-25-2023 11:37-0400 Body weight 97.52 kg [facility] 10-25-2023 11:37-0400 Diastolic blood pressure 82 mm[Hg] [facility] 10-25-2023 11:37-0400 Heart rate 70 /min [facility] 10-25-2023 11:37-0400 Respiratory rate 16 /min [facility] 10-25-2023 11:37-0400 SaO2% (BldA) [Mass fraction] 98 % [facility] 10-25-2023 11:37-0400 Systolic blood pressure 126 mm[Hg] [facility] 07-08-2023 09:45-0500 Diastolic blood pressure 69 mm[Hg] Srinivasan Consolo DPM Work Phone: [facility] [employer] 07-08-2023 09:45-0500 Heart rate 59 /min Srinivasan Consolo DPM Work Phone: [facility] [employer] 07-08-2023 09:45-0500 Respiratory rate 17 /min Srinivasan Consolo DPM [facility] 07-08-2023 09:45-0500 SaO2% (BldA) [Mass fraction] 95 % Srinivasan Consolo DPM Work Phone: [employer] 07-08-2023 09:45-0500 Systolic blood pressure 119 mm[Hg] Srinivasan Consolo DPM Work Phone: [employer] 07-08-2023 09:10-0500 Body temperature 96.91 [degF] Srinivasan Consolo DPM Work Phone: [facility] [employer] 07-08-2023 06:33-0500 Body height 177.8 cm Srinivasan Consolo DPM Work Phone: [employer] 07-08-2023 06:33-0500 Body mass index (BMI) [Ratio] 30.39 kg/m2 Srinivasan Consolo DPM Work Phone: [employer] 07-08-2023 06:33-0500 Body weight 96.07 kg Srinivasan Consolo DPM Work Phone: [facility] [employer] 06-29-2023 08:38-0500 Body height 177.8 cm Srinivasan Consolo DPM Work Phone: [facility] [employer] 06-29-2023 08:38-0500 Body mass index (BMI) [Ratio] 30.71 kg/m2 Srinivasan Consolo DPM Work Phone: [facility] 06-29-2023 08:38-0500 Body temperature 97.3 [degF] Srinivasan Consolo DPM Work Phone: [facility] [employer] 06-29-2023 08:38-0500 Body weight 97.07 kg Srinivasan Consolo DPM Work Phone: [facility] [employer] 06-29-2023 08:38-0500 Diastolic blood pressure 81 mm[Hg] Srinivasan Consolo DPM Work Phone: [facility] [employer] 06-29-2023 08:38-0500 Heart rate 74 /min Srinivasan Consolo DPM Work Phone: [facility] [employer] 06-29-2023 08:38-0500 Respiratory rate 18 /min Srinivasan Consolo DPM Work Phone: [facility] [employer] 06-29-2023 08:38-0500 SaO2% (BldA) [Mass fraction] 96 % Srinivasan Consolo DPM Work Phone: [facility] 06-29-2023 08:38-0500 Systolic blood pressure 160 mm[Hg] Srinivasan Consolo DPM Work Phone: [facility] 04-17-2022 10:22-0400 Blood Pressure Location Andre ORELLANA [facility] 04-17-2022 10:22-0400 Diastolic blood pressure 81 mm[Hg] Andre ORELLANA [facility] 04-17-2022 10:22-0400 Heart rate 71 /min Andre ORELLANA [facility] 04-17-2022 10:22-0400 Systolic blood pressure 139 mm[Hg] Andre ORELLANA [facility] 11-13-2021 10:17-0400 Diastolic blood pressure 84 mm[Hg] Srinivasan Consolo DPM Work Phone: [facility] [employer] 11-13-2021 10:17-0400 Heart rate 66 /min Srinivasan Consolo DPM Work Phone: [facility] [employer] 11-13-2021 10:17-0400 Respiratory rate 18 /min Srinivasan Consolo DPM Work Phone: [facility] [employer] 11-13-2021 10:17-0400 SaO2% (BldA) [Mass fraction] 97 % Srinivasan Consolo DPM Work Phone: [employer] 11-13-2021 10:17-0400 Systolic blood pressure 140 mm[Hg] Srinivasan Consolo DPM Work Phone: [facility] 11-13-2021 08:46-0400 Body height 177.8 cm Srinivasan Consolo DPM Work Phone: [employer] 11-13-2021 08:46-0400 Body mass index (BMI) [Ratio] 30.13 kg/m2 Srinivasan Consolo DPM Work Phone: [employer] 11-13-2021 08:46-0400 Body temperature 96.49 [degF] Srinivasan Consolo DPM Work Phone: [employer] Comment on above: checked 4x 11-13-2021 08:46-0400 Body weight 95.25 kg Srinivasan Consolo DPM Work Phone: [facility] Functional Status Date Assessment Result Facility 04-17-2022 Functional Status N/A [facility] Clinical Notes 11-13-2021 to 10-06-2023 Eleonora Owens RN - 07/08/2023 9:52 AM ESTSEleonora soto RN - 07/08/2023 9:45 AM ESTDischarge Tammie Rick RN - 06/29/2023 9:00 AM EST Note Date & Type Note Facility 10-06-2023 Hospital Discharg e instructions Follow Up Care 10/06/2023 10:58:49 With:BELLE MORALES, Shady Easton, URL Address: [facility] [address], [place] [address]- [phone] When: Unknown [facility] [place] 10-06-2023 Note [id number] [facility] 07-08-2023 History of Presen t illness Narrative Discharge instructions reviewed with patient and patient's . Both imply understanding. Darco shoe put on left foot at this time. Marcio wrap clean and dry to left foot. No drainage. Patient denies c/o pain. Positive for numbness. documented in this encounter [facility] 07-08-2023 [facility] Discharg e instructions Eleonora Owens RN [...] question or concerns please call the office ([phone]). If after hours Dr. Rahman can be reached at [phone] (home) or [phone] (cell phone). documented in this encounter [facility] 06-29-2023 History of Presen t illness Narrative Patient instructed on the pre-operative, intra-operative, and post-operative process. Patient instructed on NPO status. Medication instructions and pre operative instruction sheet reviewed with the patient. CHG skin prep instructions reviewed with patient. [facility] Preadmission Testing Name: Rubi Flores : [...] in PAT? Yes documented in this encounter [facility] 04-17-2022 Hospital Discharg e instructions Patient [...] fried and sweet foods. General instructions Take efor-bfl-hxjkhxj and prescription medicines only as told by [...] 03/27/2010 Document Revised: 09/21/2019 Document Reviewed: 06/16/2018 [email or web address] Patient Education 2020 [employer] Follow Up Care 04/18/2021 10:41:15 With:ESTEBAN MORALES, Andre Frazier, URL Address: [address] [place], [place] [id number]- When: Unknown [facility] 11-13-2021 History of Presen t illness Narrative Discharge instructions reviewed with patient. Verbalized understanding and denied any questions. Patient walked with steady gait and use of post op shoe. Patient instructed on the pre-operative, intra-operative, and post-operative process. Medication instructions and pre operative instruction sheet reviewed with the patient. 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 [employer] Work Phone: Evaluation + Plan note Future Appointments Appointment Date:04/16/2023 10:15:00 AM Scheduled Provider:Andre ORELLANA MD Location:[facility] Appointment Type:URO Office Visit Diagnostic Tests PendingPSA Total 03/14/23 [facility] Evaluation + Plan note Future Appointments Appointment Date:08/30/2023 09:30:00 AM Scheduled Provider:Andre ORELLANA MD Location:[facility] Appointment Type:URO Office Visit [facility] Evaluation + Plan note Future Appointments Appointment Date:10/11/2023 02:45:00 PM Scheduled Provider:[facility] Type:FM Open Appointment Date:01/03/2024 02:00:00 PM Scheduled Provider:Mak Hubbard MD [facility] Appointment Type:FM Open Appointment Date:10/09/2024 01:00:00 PM Scheduled Provider: [facility] Appointment Type: Medicare Wellness Subsequent [facility] Evaluation + Plan note Future Appointments Appointment Date:10/19/2023 08:30:00 AM Scheduled Provider:Mak Hubbard MD [facility] Appointment Type: Open Appointment Date:01/03/2024 02:00:00 PM Scheduled Provider:[facility] Type: Open Appointment Date:10/09/2024 01:00:00 PM Scheduled Provider: [facility] App[facility] Type:FM Medicare Wellness [facility] Evaluation note Diagnosis Mass of skin of toe of left foot documented in this encounter [facility] [email or web address] [facility] noteNo assessment information available [facility] Work Phone: Hospital course Narrative No data available for this section [facility] Discharge instructions* Instructions* Joyce Rodney, RN - 11/13/2021 SAME DAY SURGERY DISCHARGE [...] question or concerns please call the office ([phone]). If after hours Dr. Rahman can be reached at [phone] (home) or [phone] (cell phone). [facility] [facility] Work Phone: Hospital Discharge instructions No data available for this section [facility] No data available for this section [facility] Reason for visit Narrative* Auth/Cert Specialty Diagnoses / Procedures Referred By Rebecca t Referred To Contact Diagnoses Calcaneal spur, left SPUR LEFT 5TH DIGIT Procedures [place] REPAIR OF HAMMERTOE,ONE FOOT BUNIONECTOMY- EXCISION SPUR L5TH DIGIT Srinivasan Rahman, DPM [address] [place] [address] [facility] [address] [place] [address] Referral ID Status Reason Start Date Expiration Date Visits Re quested Visits Authorized [id number] 1 1 [facility] Phone: Advance Directives No Advanced Directives Records FoundDocuments on File Type Date Recorded Patient 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 Expl anation ACP-Advance Directive ACP-Power of Shift Nurse Manager Advance Directive Response Recorded Date/ Time Advance [...] Order 11/11/2021 11/12/2021 11/13/2021 bupivacaine-EPINEPHrine (MARCAINE-w/EPINEPHRINE) 0.5% -1:[id number] 2 mL, lidocaine PF 2 % 2 [...] 0.5 % injection (CANCELED) PRN, Starting on Robetra 07/08/23 at 0900, Until Roberta 07/08/23 at 0918, Intra-op 0900 (Given - Provid er: Srinivasan Rahman DPM) lidocaine 2 % injection (CANCELED) PRN, Starting on Roberta 07/08/23 at 0835, Until Roberta 07/08/23 at 0918, Intra-op 0835 (Canceled Entry - Provider: Srinivasan Rahman DPM)0857 (Given - Provider: Srinivasan Rahman DPM) lidocaine-EPINEPHrine 2 percent-1:364094 injection (CANCELED) PRN, Starting on Roberta 07/08/23 at 0901, Until Roberta 07/08/23 at 0918, Intra-op 0901 (Given - Provid er: Srinivasan Rahman DPM) No Frequency Medication Order 07/06/2023 07/07/2023 07/08/2023 BUPivacaine (PF) (MARCAINE) 0.5 % injection 1 dose, Starting on Roberta 07/08/23 at 0734, Until Roberta 07/08/23 at 1944, Denise Santiago: saminet overridePamela Rose: cabinet override 0745 (Due) dexAMETHasone (DECADRON) 4 MG/ML injection 1 dose, Starting on Roberta 07/08/23 at 0734, Until Roberta 07/08/23 at 1944, Denise Santiago: saminet overridePamela Rose: cabinet override 0745 (Due) gentamicin (GARAMYCIN) 40 MG/ML injection 1 dose, Starting on Roberta 07/08/23 at 0735, Until Roberta 07/08/23 at 1944, Denise Santiago: cabinet override, Denise Santiago: cabinet override 0745 (Due) lidocaine 1 % injection 1 dose, Starting on Roberta 07/08/23 at 0734, Until Roberta 07/08/23 at 1944, Denise Santiago: cabinet override, Denise Santiago: cabinet override 0745 (Due) Care Teams (unrecognized sec tion and content) Circulation Manager Relationship Specialty Start Date End Date Brunilda Ly DO [address] [place] [address] PCP - General 11/12/21 Circulation Manager Relationship Specialty Start Date End Date Brunilda Ly DO [address] [place] [address] PCP - General 11/12/21 Circulation Manager Relationship Specialty Start Date End Date Brunilda Ly DO [address] [place] [address] PCP - General 11/12/21 Team Status: Active [...] pital DATE CREATED AUTHOR AUTHOR'S ORGANIZ ATION 11/17/2023 [facility] Reason for Visit (unrecogniz ed section and content) Specialty Diagnoses / Procedures Referred By Rebecca t Referred To Contact Diagnoses Mass of skin of toe of left foot Mass of skin of toe of left foot [R22.42] Procedures [place] CORRECTION HAMMERTOE TOE HAMMER REPAIR-DISTAL SYNES PROCEDURE 5TH Srinivasan Mcdonough, DPM [address] [place] [address] [facility] [address] [place] [address] Referral ID Status Reason Start Date Expiration Date Visits Re quested Visits Authorized [id number] 1 1 Goals (unrecognized section and content) [...] BE BASED ON THE PRIMARY CLINICAL RECORDS. [employer] provides no warranty or guarantee of the accuracy or completeness of information in this document.
--- NOTE | 2023-11-25 08:15 | XR_ITS ---
The [address] [address] Patient Name: RUBI FLORES MRN: [id number] date: 1945 Sex: M Assigned Patient Location: [facility] Current Patient Location: [facility] Accession/Order Number: [id number] Exam Date: 11/25/2023 08:25 Report Date: 11/25/2023 08:40 At the request of: DAYANARA ODONNELL Procedure: XR chest 2V PROCEDURE: XR chest 2V DATE: 11/25/2023 7:25 AM CDT COMPARISONS: 02/25/2021 CLINICAL INDICATION: 78 years Male Preop exam FINDINGS: The cardiomediastinal silhouette and pulmonary vasculature are within normal limits. Lungs show slight scattered chronic lung changes but are otherwise clear. There is no evidence of pleural effusion or pneumothorax. XR/XR chest 2V IMPRESSION: Chest radiograph is essentially within normal limits. Electronically authenticated by: JO ANN BURTON Date: 11/25/2023 08:40
[2023-11-25 08:36] LABS: Basophils Percent Auto 0.7 % (0.2-2.0); Eosinophils Absolute Auto 0.2 10^3/uL (0.0-0.7); Eosinophils Percent Auto 3.7 % (0.9-7.0); Hematocrit 43.6 % (42.0-54.0); Hemoglobin 14.5 g/dL (14.0-18.0); Immature Granulocytes Abs Auto 0.01 10^3/uL (0.00-0.03); Immature Granulocytes Pct Auto 0.2 % (0.0-0.5); Lymphocytes Absolute Auto 1.1 10^3/uL (1.2-3.8); Lymphocytes Percent Auto 20.1 % (20.5-60.0); Mean Corpuscular HGB Conc 33.3 g/dL (29.9-35.2); Mean Corpuscular Hemoglobin 31.5 pg (25.9-34.0); Mean Corpuscular Volume 94.6 fL (80.0-94.0); Mean Platelet Volume 12.8 fL (9.5-13.5); Monocytes Absolute Auto 0.7 10^3/uL (0.3-0.8); Monocytes Percent Auto 13.6 % (1.7-12.0); Neutrophils Absolute Auto 3.3 10^3/uL (1.4-6.5); Neutrophils Percent Auto 61.7 % (43.0-75.0); Platelet Count 155 10^3/uL (150-450); Red Blood Count 4.61 10^6/uL (4.70-6.10); Red Cell Distribution Width 13.1 % (11.0-15.0); White Blood Count 5.4 10^3/uL (4.0-11.0)
[2023-11-25 08:39] LABS: Anion Gap 11.9; BUN Creatinine Ratio 20.5; Calcium 8.5 mg/dL (8.5-10.1); Carbon Dioxide 27.5 mmol/L (21.0-32.0); Chloride 106 mmol/L (98-107); Estimated GFR (African America >60 (>=60); Estimated GFR (Non-African Ame >60 (>=60); Glucose 100 mg/dL (74-106); Potassium 4.4 mmol/L (3.5-5.1); Sodium 141 mmol/L (136-145)
[2023-11-25 09:06] LABS: Partial Thromboplastin Time 30.1 sec (22.3-36.2); Prothrombin Time 10.6 sec (9.0-11.6)
== END 2023-11-25 07:44 | disposition home or self-care (01) ==
LOC: PST 07:43
PROVIDERS: PCP Family Medicine; Visit Provider Urology
DX: Z01.810 Encounter for preprocedural cardiovascular examination (principal); Z01.812 Encounter for preprocedural laboratory examination; N20.0 Calculus of kidney
CPT/HCPCS: 36415; 71046; 80048; 85025; 85610; 85730

== ENCOUNTER 2023-12-02 08:50 | Day surgery (SDC) | payer MEDICARE, OTHER, SELFPAY ==
[2023-11-25 07:56] VITALS: BP 142/86; PULSE 68; TEMP 36.3; O2SAT 96; BMI 32.6
[2023-12-02] VITALS (10 sets, daily range): BP systolic 127–165; BP diastolic 67–90; PULSE 59–68; TEMP 36.1–36.4; O2SAT 95–100; BMI 31.4
--- NOTE | 2023-12-02 09:15 | XR_ITS ---
The [address] [address] Patient Name: RUBI FLORES MRN: [id number] date: 1945 Sex: M Assigned Patient Location: [facility] Current Patient Location: Accession/Order Number: [id number] Exam Date: 12/02/2023 09:05 Report Date: 12/03/2023 06:17 At the request of: DAYANARA ODONNELL Procedure: XR abdomen 1V EXAMINATION: XR abdomen 1V HISTORY: kidney stones COMPARISON: CT abdomen pelvis 10/04/2023 FINDINGS: KIDNEY/URETER - RIGHT: 4 mm stone projecting over superior pole of kidney. KIDNEY/URETER - LEFT: At least 2 calcifications within left kidney, largest is 10 mm. Left ureteral stent appearing in grossly good position. Previously seen large mid ureteral stone is no longer present. PELVIS: Pelvic calcifications favor phleboliths. BOWEL: No abnormal dilation or deviation. BONES: No acute abnormality. OTHER: Negative. No abnormal gaseous collections. XR/XR abdomen 1V IMPRESSION: 1. Bilateral nephrolithiasis. 2. Left ureteral stent. Electronically authenticated by: MARTIN PATINO Date: 12/03/2023 06:17
[2023-12-02] MEDS: LACTATED RINGER'S SOLUTION 1,000 ML 50 ML IV ×2 (10:11→13:04)
[2023-12-02] MEDS: CIPROFLOXACIN IN 5 % DEXTROSE 400 MG/200 ML PIGGYBACK 200 MG IV (11:28)
--- NOTE | 2023-12-02 12:34 | P.URON_ITS ---
Urology Surgery Operative Note Operative Note Procedure Date: 12/02/23 Time Out Performed: yes Pre-op Diagnosis: Left renal calculi status post stent placement Post-op Diagnosis: same as pre-op Procedures performed: 1. Left ESWL. 2. Cystoscopy. 3. Left stent removal Anesthesia: General-LMA Primary Surgeon: Shady Miramontes Complications: None Estimated blood loss (mL): 0 Findings: 2, left renal calculi 4 to 10 mm each Specimens: None Drains: None Indications for Procedures: This gentleman had ureteroscopy laser and stent placement done a few weeks ago for a left ureteral stone. He now presents for left renal ESWL. He has signed an informed consent for this procedure and cystoscopy and left stent removal after all risks were explained. Some of these risks include bleeding, perinephric hematoma,Anesthesia and infection to name a few Detailed description of Procedure: The patient was brought to the Operating Room and placed on Siemens electromagnetic lithotripsy treatment table in the supine position. SCDs were placed on their lower extremities and turned on and functioning during the entire case. Timeout was done by all parties in the room. We all agreed upon the patient's identification and the planned procedures for this patient. General Anesthesia was then administered via LMA. Treatment head was then brought to the patient's correct side. While using flourscopy the Lower Smaller stone was identified and lined up into the crosshairs. We then began applying shocks.We started at power level 2.0 and increased to a maximum power level of 3.5. We applied 1000 shocks to this lower stone and it fragmented well. We then lined up the larger midpole stone in the crosshairs. We applied 2000 shocks to the stone and it also fragmented. After applying 3000 shocks to the left renal unit the ESWL was stopped. We then prepped and draped his genitalia in the usual sterile fashion. We passed a flexible cystoscope per urethra and into the bladder. The stent was identified. I then passed the flexible grasping forceps through the scope and grasped the stent. The scope and stent were then removed without difficulty.He was then transferred to a [facility] bed and wheeled to PACU in stable condition.
== END 2023-12-02 13:51 | disposition home or self-care (01) ==
PROVIDERS: PCP Family Medicine; Visit Provider Urology
PROC: (CPT 50590; principal; 2023-12-02 10:30)
DX: N20.0 Calculus of kidney (principal); I10 Essential (primary) hypertension; J44.9 Chronic obstructive pulmonary disease, unspecified; E89.0 Postprocedural hypothyroidism; I71.40 Abdominal aortic aneurysm, without rupture, unspecified; Z85.850 Personal history of malignant neoplasm of thyroid; Z79.82 Long term (current) use of aspirin; Z79.890 Hormone replacement therapy; Z79.899 Other long term (current) drug therapy; Z90.79 Acquired absence of other genital organ(s); Z87.442 Personal history of urinary calculi; Z85.46 Personal history of malignant neoplasm of prostate
CPT/HCPCS: 50590; 52310; 36415; 74018; J0744; J2405; J3010

== ENCOUNTER 2023-12-08 07:34 | Outpatient (RCR) | payer MEDICARE, OTHER, SELFPAY ==
[2023-11-17 13:43] VITALS: BP 143/79; PULSE 70; TEMP 37; O2SAT 93
--- NOTE | 2023-11-17 13:46 | PC.NURSE ---
1335 Arrival ambulatory, alert oriented denies any complaints. IV initiated left forearm #24 catheter. tolerated well.
[2023-11-17] MEDS: PROTEINASE INHIBITOR IV (13:55)
[2023-11-17] MEDS: ALPHA IV (13:55)
[2023-11-24 13:53] VITALS: BP 146/79; PULSE 73; TEMP 36.5; O2SAT 95
[2023-11-24] MEDS: ALPHA IV (13:57)
[2023-11-24] MEDS: PROTEINASE INHIBITOR IV (13:57)
--- NOTE | 2023-11-24 14:34 | PC.NURSE ---
1430: Prolastin completed at this time without s&s of adverse reaction. IV d/c'd pressure to site. 1432: Pt. d/c'd amb. to home.
[2023-12-01 13:00] VITALS: BP 138/79; PULSE 86; TEMP 36.1; O2SAT 95
--- NOTE | 2023-12-01 13:17 | PC.NURSE ---
1300: Pt. to [facility] amb. for weekly Prolastin treatment. Weight obtained, called to pharmacy. Seated in recliner. VSS. IV initiated per. SHALONDA Henderson, see documentation. Pt. given water. Declines snack.
[2023-12-01] MEDS: PROTEINASE INHIBITOR IV (13:26)
[2023-12-01] MEDS: ALPHA IV (13:26)
--- NOTE | 2023-12-01 13:34 | PC.NURSE ---
1326: IV Prolastin initiated at this time. Pt. given water.
--- NOTE | 2023-12-01 14:04 | PC.NURSE ---
1400: Prolastin completed without adverse reaction. IV d/c'd, pressure to site. Pt. d/c'd amb. to home.
[2023-12-08 12:25] VITALS: BP 127/79; PULSE 68; TEMP 36.6; O2SAT 95
[2023-12-08] MEDS: ALPHA IV (12:58)
[2023-12-08] MEDS: PROTEINASE INHIBITOR IV (12:58)
--- NOTE | 2023-12-08 13:06 | PC.NURSE ---
1225: Pt. to [facility] amb. Weight obtained. Seated in recliner. VSS. IV initiated, see documentation. Pt. tolerated well. Given water. Denies needs or c/o. 1258: IV Prolastin initiated at this time.
--- NOTE | 2023-12-08 13:36 | PC.NURSE ---
1330: Prolastin completed without s&s of adverse reaction. IV d/c'd, pressure to site. D/c'd amb. to home.
== END 2023-12-10 10:47 | disposition home or self-care (01) ==
LOC: INF 07:34
PROVIDERS: PCP Family Medicine; Visit Provider Internal Medicine
DX: J43.8 Other emphysema (principal); E88.01 Alpha-1-antitrypsin deficiency
CPT/HCPCS: 96365; J0256

== ENCOUNTER 2024-01-12 07:18 | Outpatient (RCR) | payer MEDICARE, OTHER, SELFPAY ==
[2023-12-15 13:50] VITALS: BP 144/81; PULSE 60; TEMP 36.5; O2SAT 94
[2023-12-15] MEDS: PROTEINASE INHIBITOR IV (14:12)
[2023-12-15] MEDS: ALPHA IV (14:12)
[2023-12-22 13:23] VITALS: BP 155/74; PULSE 72; TEMP 36.5; O2SAT 97
--- NOTE | 2023-12-22 13:34 | PC.NURSE ---
1323:Pt. to [facility] amb. for weekly infusion. Weight obtained. Seated in recliner. VSS. IV initiated to right arm, see documentation. Pt. tolerated without c/o. Given water, declines snack.
[2023-12-22] MEDS: ALPHA IV (13:44)
[2023-12-22] MEDS: PROTEINASE INHIBITOR IV (13:44)
--- NOTE | 2023-12-22 13:48 | PC.NURSE ---
1344: IV Prolastin initiated at this time. Pt. denies needs or c/o.
--- NOTE | 2023-12-22 14:31 | PC.NURSE ---
1418: Prolastin infusion completed without s&s of adverse reaction. IV d/c'd, pressure to site. D/c'd amb. to home.
[2023-12-29 13:16] VITALS: BP 146/82; PULSE 66; TEMP 36.5; O2SAT 94
[2023-12-29] MEDS: ALPHA IV (13:45)
[2023-12-29] MEDS: PROTEINASE INHIBITOR IV (13:45)
--- NOTE | 2023-12-29 14:16 | PC.NURSE ---
1345: IV Prolastin initiated at this time. Pt. given water and snack. Denies needs. 1414: Prolastin infusion completed without s&s of adverse reaction. IV d/c'd, pressure to site. Pt. d/c'd amb. to home.
[2024-01-05 13:19] VITALS: BP 149/78; PULSE 72; TEMP 36.4; O2SAT 95
[2024-01-05] MEDS: ALPHA IV (13:46)
[2024-01-05] MEDS: PROTEINASE INHIBITOR IV (13:46)
[2024-01-12] MEDS: ALPHA IV (14:11)
[2024-01-12] MEDS: PROTEINASE INHIBITOR IV (14:11)
[2024-01-12 14:14] VITALS: BP 130/80; PULSE 80; TEMP 36.3; O2SAT 94
== END 2024-01-12 23:59 | disposition home or self-care (01) ==
LOC: INF 07:18
PROVIDERS: PCP Family Medicine; Visit Provider Internal Medicine
DX: E88.01 Alpha-1-antitrypsin deficiency (principal); J43.8 Other emphysema
CPT/HCPCS: 96365; J0256

== ENCOUNTER 2024-02-09 07:31 | Outpatient (RCR) | payer MEDICARE, OTHER, SELFPAY ==
[2024-01-19 13:20] VITALS: BP 132/84; PULSE 82; O2SAT 93
[2024-01-19] MEDS: PROTEINASE INHIBITOR IV (13:37)
[2024-01-19] MEDS: ALPHA IV (13:37)
[2024-01-26 14:05] VITALS: BP 136/77; PULSE 60; TEMP 36.2; O2SAT 96
[2024-01-26] MEDS: ALPHA IV (14:23)
[2024-01-26] MEDS: PROTEINASE INHIBITOR IV (14:23)
[2024-02-02] MEDS: ALPHA IV (13:53)
[2024-02-02] MEDS: PROTEINASE INHIBITOR IV (13:53)
[2024-02-02 14:15] VITALS: BP 126/81; PULSE 79; TEMP 36.6; O2SAT 94
[2024-02-02 15:01] VITALS: BP 137/73; PULSE 69; TEMP 37.1; O2SAT 95
[2024-02-09 14:04] VITALS: BP 139/83; PULSE 90; TEMP 35.5; O2SAT 92
[2024-02-09] MEDS: PROTEINASE INHIBITOR IV (14:28)
[2024-02-09] MEDS: ALPHA IV (14:28)
== END 2024-02-12 23:59 | disposition home or self-care (01) ==
LOC: INF 07:31
PROVIDERS: PCP Family Medicine; Visit Provider Internal Medicine
DX: E88.01 Alpha-1-antitrypsin deficiency (principal); J43.8 Other emphysema
CPT/HCPCS: 36569; 96365; J0256

== ENCOUNTER 2024-03-08 07:38 | Outpatient (RCR) | payer MEDICARE, OTHER, SELFPAY ==
[2024-02-16 14:03] VITALS: BP 120/75; PULSE 68; TEMP 36.4; O2SAT 93
[2024-02-16] MEDS: ALPHA IV (14:11)
[2024-02-16] MEDS: PROTEINASE INHIBITOR IV (14:11)
[2024-02-23 13:50] VITALS: BP 138/85; PULSE 69; TEMP 36.8; O2SAT 94
--- NOTE | 2024-02-23 14:10 | PC.NURSE ---
1350: Pt. to [facility] forl weekly Prolastin. Weight obtained. VSS. IV initiated, see documentation. Pt. tolerates without c/o. Given water. Denies needs.
[2024-02-23] MEDS: PROTEINASE INHIBITOR IV (14:13)
[2024-02-23] MEDS: ALPHA IV (14:13)
--- NOTE | 2024-02-23 14:54 | PC.NURSE ---
1445: Prolastin infusion completed without s&s of adverse reaction. IV d/c'd, pressure to site. D/c'd amb. to home.
[2024-03-01 13:45] VITALS: BP 147/87; PULSE 67; TEMP 36.8; O2SAT 93
[2024-03-01] MEDS: PROTEINASE INHIBITOR IV (14:17)
[2024-03-01] MEDS: ALPHA IV (14:17)
--- NOTE | 2024-03-01 14:42 | PC.NURSE ---
1345: Pt. to [facility] for weekly infusion. Weight obtained, called to pharmacy. Seated in recliner. VSS. IV initiated, see documentation. Tolerated without c/o. Denies needs. Given water and snack. 1417: IV Prolastin initiated at this time.
--- NOTE | 2024-03-01 14:55 | PC.NURSE ---
1450: Prolastin infused without s&s of adverse reaction. IV d/c'd, pressure to site. Pt. tolerated all without c/o. D/c'd amb. to home.
[2024-03-08] MEDS: PROTEINASE INHIBITOR IV (13:40)
[2024-03-08] MEDS: ALPHA IV (13:40)
== END 2024-03-13 23:59 | disposition home or self-care (01) ==
LOC: INF 07:38
PROVIDERS: PCP Family Medicine
DX: E88.01 Alpha-1-antitrypsin deficiency (principal); J43.8 Other emphysema
CPT/HCPCS: 96365; J0256

== ENCOUNTER 2024-04-12 07:38 | Outpatient (RCR) | payer MEDICARE, OTHER, SELFPAY ==
[2024-03-15] MEDS: ALPHA IV (14:20)
[2024-03-15] MEDS: PROTEINASE INHIBITOR IV (14:20)
[2024-03-15 14:32] VITALS: BP 156/69; PULSE 72; TEMP 36.2; O2SAT 92
--- NOTE | 2024-03-15 14:36 | PC.NURSE ---
1350: Pt. to [facility] amb. for Prolastin infusion. Weight obtained. Seated in recliner. VSS. IV initiated, see documentation. Pt. tolerated without c/o. Given bottled water.
--- NOTE | 2024-03-15 14:38 | PC.NURSE ---
1420: IV Prolastin initiated at this time. Pt. denies needs.
--- NOTE | 2024-03-15 14:47 | PC.NURSE ---
1445: Prolastin completed without adverse reaction. IV d/c'd , pressure to site. Tolerated without c/o. D/c'd amb. to home.
[2024-03-22 13:37] VITALS: BP 142/84; PULSE 68; TEMP 37.1; O2SAT 94
[2024-03-22] MEDS: PROTEINASE INHIBITOR IV (14:15)
[2024-03-22] MEDS: ALPHA IV (14:15)
[2024-03-29] MEDS: ALPHA IV (13:58)
[2024-03-29] MEDS: PROTEINASE INHIBITOR IV (13:58)
[2024-04-05 13:07] VITALS: BP 153/82; PULSE 70; TEMP 36.6; O2SAT 96
[2024-04-05] MEDS: ALPHA IV (13:35)
[2024-04-05] MEDS: PROTEINASE INHIBITOR IV (13:35)
[2024-04-12] MEDS: ALPHA IV (13:36)
[2024-04-12] MEDS: PROTEINASE INHIBITOR IV (13:36)
[2024-04-12 14:11] VITALS: BP 151/83; PULSE 71; TEMP 35.7; O2SAT 94
== END 2024-04-13 23:59 | disposition home or self-care (01) ==
LOC: INF 07:38
PROVIDERS: PCP Family Medicine; Visit Provider Internal Medicine
DX: J43.8 Other emphysema (principal); E88.01 Alpha-1-antitrypsin deficiency
CPT/HCPCS: 96365; J0256

== ENCOUNTER 2024-05-10 07:42 | Outpatient (RCR) | payer MEDICARE, OTHER, SELFPAY ==
[2024-04-19 13:40] VITALS: BP 130/78; PULSE 78; TEMP 36.7; O2SAT 93
--- NOTE | 2024-04-19 14:00 | PC.NURSE ---
1340: Pt. to [facility] amb. for weekly infusion. Weight obtained. Seated in recliner. VSS. IV initiated see documentation. Given snack and water. Denies needs or c/o.
[2024-04-19] MEDS: PROTEINASE INHIBITOR IV (14:02)
[2024-04-19] MEDS: ALPHA IV (14:02)
--- NOTE | 2024-04-19 14:08 | PC.NURSE ---
1402: IV Prolastin initiated at this time. Denies needs.
--- NOTE | 2024-04-19 14:38 | PC.NURSE ---
1435: Prolastin completed without adverse reaction. IV d/c'd pressure to site. D/c'd amb to home.
[2024-04-26 13:52] VITALS: BP 135/85; PULSE 80; TEMP 36.3; O2SAT 94
[2024-04-26] MEDS: ALPHA IV (14:18)
[2024-04-26] MEDS: PROTEINASE INHIBITOR IV (14:18)
[2024-05-03] MEDS: ALPHA-1-PROTEINASE INHIBITOR 6,348 MG in EMPTY BAG 0 ML 240 MG IV (13:40)
[2024-05-10 13:25] VITALS: BP 168/82; PULSE 68; TEMP 36.6; O2SAT 95
[2024-05-10] MEDS: ALPHA-1-PROTEINASE INHIBITOR 6,348 MG in EMPTY BAG 0 ML 240 MG IV (13:40)
--- NOTE | 2024-05-10 14:13 | PC.NURSE ---
1325: Pt. to [facility] amb for Prolastin infusion. VSS. IV initiated, see documentation. Pt. given water. Denies needs. 1340: IV Prolastin initiated at this time. Pt. cont. to deny needs. 1410: Prolastin completed. IV d/c'd. Pt. d/c'd to home.
== END 2024-05-10 14:16 | disposition home or self-care (01) ==
LOC: INF 07:42
PROVIDERS: PCP Family Medicine; Visit Provider Internal Medicine
DX: J43.8 Other emphysema (principal); E88.01 Alpha-1-antitrypsin deficiency
CPT/HCPCS: 96365; J0256

== ENCOUNTER 2024-06-08 07:44 | Outpatient (RCR) | payer MEDICARE, OTHER, SELFPAY ==
[2024-05-17 13:14] VITALS: BP 157/74; PULSE 68; TEMP 36.3; O2SAT 95
[2024-05-17] MEDS: PROTEINASE INHIBITOR IV (13:15)
[2024-05-17] MEDS: ALPHA IV (13:15)
[2024-05-24 13:55] VITALS: BP 139/84; PULSE 65; TEMP 36.6; O2SAT 93
[2024-05-24] MEDS: PROTEINASE INHIBITOR IV (13:55)
[2024-05-24] MEDS: ALPHA IV (13:55)
[2024-05-31 13:30] VITALS: BP 147/89; PULSE 72; TEMP 36.6; O2SAT 96
[2024-05-31] MEDS: ALPHA IV (14:24)
[2024-05-31] MEDS: PROTEINASE INHIBITOR IV (14:24)
--- NOTE | 2024-05-31 14:57 | PC.NURSE ---
1454: Prolastin infusion completed without s&s of adverse reaction. IV d/c'd, pressure to site. D/c'd amb. to home.
[2024-06-08 13:06] VITALS: BP 152/82; PULSE 70; TEMP 36.4; O2SAT 98
[2024-06-08] MEDS: ALPHA IV (13:36)
[2024-06-08] MEDS: PROTEINASE INHIBITOR IV (13:36)
== END 2024-06-09 12:35 | disposition home or self-care (01) ==
LOC: INF 07:44
PROVIDERS: PCP Family Medicine
DX: E88.01 Alpha-1-antitrypsin deficiency (principal); J43.8 Other emphysema
CPT/HCPCS: 96365; J0256

== ENCOUNTER 2024-07-12 07:38 | Outpatient (RCR) | payer OTHER, SELFPAY ==
[2024-06-15 13:20] VITALS: BP 145/80; PULSE 68; TEMP 35.8; O2SAT 95
[2024-06-15] MEDS: PROTEINASE INHIBITOR IV (13:42)
[2024-06-15] MEDS: ALPHA IV (13:42)
[2024-06-21 12:57] VITALS: BP 147/74; PULSE 69; TEMP 36.3; O2SAT 95
[2024-06-21] MEDS: ALPHA IV (13:35)
[2024-06-21] MEDS: PROTEINASE INHIBITOR IV (13:35)
[2024-06-28 13:00] VITALS: BP 151/78; PULSE 83; TEMP 36.7; O2SAT 93
[2024-06-28] MEDS: PROTEINASE INHIBITOR IV (13:28)
[2024-06-28] MEDS: ALPHA IV (13:28)
--- NOTE | 2024-06-28 13:36 | PC.NURSE ---
1328: IV Prolastin initiated at this time
[2024-07-05 12:55] VITALS: BP 164/87; PULSE 68; TEMP 35.7; O2SAT 96
[2024-07-05] MEDS: ALPHA IV (13:32)
[2024-07-05] MEDS: PROTEINASE INHIBITOR IV (13:32)
[2024-07-12 12:55] VITALS: BP 150/77; PULSE 80; TEMP 36.4; O2SAT 93
[2024-07-12] MEDS: ALPHA-1-PROTEINASE INHIBITOR 6,222 MG in EMPTY BAG 0 ML 240 MG IV (13:34)
== END 2024-07-14 23:59 | disposition home or self-care (01) ==
LOC: INF 07:38
PROVIDERS: PCP Family Medicine; Visit Provider Internal Medicine
DX: E88.01 Alpha-1-antitrypsin deficiency (principal); J43.9 Emphysema, unspecified
CPT/HCPCS: 96365; J0256

== ENCOUNTER 2024-08-10 07:38 | Outpatient (RCR) | payer OTHER, SELFPAY ==
[2024-07-19 13:00] VITALS: BP 143/87; PULSE 72; TEMP 36.3; O2SAT 93
[2024-07-19] MEDS: ALPHA-1-PROTEINASE INHIBITOR 6,222 MG in EMPTY BAG 1 ML 240 MG IV (13:51)
--- NOTE | 2024-07-19 14:03 | PC.NURSE ---
1351: IV Prolastin initiated at this time.
[2024-07-26 12:35] VITALS: BP 156/88; PULSE 68; TEMP 35.9; O2SAT 95
[2024-07-26] MEDS: ALPHA-1-PROTEINASE INHIBITOR 6,468 MG in EMPTY BAG 0 ML 240 MG IV (13:01)
--- NOTE | 2024-07-26 13:06 | PC.NURSE ---
1301: IV Prolastin initiated at this time.
[2024-08-02 12:53] VITALS: BP 155/86; PULSE 61; TEMP 36.4; O2SAT 95
[2024-08-02] MEDS: ALPHA-1-PROTEINASE INHIBITOR 6,468 MG in EMPTY BAG 0 ML 240 MG IV (13:24)
[2024-08-10 12:50] VITALS: BP 159/79; PULSE 68; TEMP 36.4; O2SAT 95
[2024-08-10] MEDS: ALPHA-1-PROTEINASE INHIBITOR 6,528 MG in EMPTY BAG 0 ML 240 MG IV (13:24)
== END 2024-08-11 07:55 | disposition home or self-care (01) ==
LOC: INF 07:38
PROVIDERS: PCP Family Medicine; Visit Provider Internal Medicine
DX: E88.01 Alpha-1-antitrypsin deficiency (principal); J43.9 Emphysema, unspecified
CPT/HCPCS: 96365; J0256

== ENCOUNTER 2024-09-06 07:33 | Outpatient (RCR) | payer OTHER, SELFPAY ==
[2024-08-16 12:46] VITALS: PULSE 74; TEMP 35.9; O2SAT 92
[2024-08-16 12:55] VITALS: BP 166/70; PULSE 72; TEMP 36.6; O2SAT 95
[2024-08-16] MEDS: ALPHA-1-PROTEINASE INHIBITOR 6,528 MG in EMPTY BAG 0 ML 240 MG IV (13:45)
[2024-08-24 12:55] VITALS: BP 133/80; PULSE 69; TEMP 36.8; O2SAT 94
[2024-08-24] MEDS: ALPHA-1-PROTEINASE INHIBITOR 6,528 MG in EMPTY BAG 0 ML 240 MG IV (13:35)
[2024-08-30 13:05] VITALS: BP 142/79; PULSE 68; TEMP 36.4; O2SAT 92
[2024-08-30] MEDS: ALPHA-1-PROTEINASE INHIBITOR 6,528 MG in EMPTY BAG 0 ML 240 MG IV (13:20)
[2024-09-06 12:55] VITALS: BP 147/77; PULSE 76; TEMP 36.3; O2SAT 93
== END 2024-09-06 14:27 | disposition home or self-care (01) ==
LOC: INF 07:33
PROVIDERS: PCP Family Medicine; Visit Provider Internal Medicine
DX: E88.01 Alpha-1-antitrypsin deficiency (principal); J43.9 Emphysema, unspecified
CPT/HCPCS: 96365; J0256

== ENCOUNTER 2024-10-11 07:41 | Outpatient (RCR) | payer OTHER, SELFPAY ==
[2024-09-14 10:45] VITALS: BP 140/86; PULSE 74; TEMP 36.4; O2SAT 93
[2024-09-14] MEDS: PROTEINASE INHIBITOR IV (11:02)
[2024-09-14] MEDS: ALPHA IV (11:02)
[2024-09-20 12:48] VITALS: BP 149/78; PULSE 66; TEMP 36.4; O2SAT 93
[2024-09-20] MEDS: ALPHA IV (13:18)
[2024-09-20] MEDS: PROTEINASE INHIBITOR IV (13:18)
[2024-09-27 12:50] VITALS: BP 167/86; PULSE 68; TEMP 35.9; O2SAT 94
[2024-09-27] MEDS: ALPHA IV (13:22)
[2024-09-27] MEDS: PROTEINASE INHIBITOR IV (13:22)
[2024-10-04 12:50] VITALS: BP 142/89; PULSE 67; TEMP 36.4; O2SAT 92
[2024-10-04] MEDS: ALPHA IV (13:20)
[2024-10-04] MEDS: PROTEINASE INHIBITOR IV (13:20)
[2024-10-11 12:55] VITALS: BP 147/78; PULSE 77; TEMP 37; O2SAT 93
[2024-10-11] MEDS: PROTEINASE INHIBITOR IV (13:25)
[2024-10-11] MEDS: ALPHA IV (13:25)
== END 2024-10-11 23:59 | disposition home or self-care (01) ==
LOC: INF 07:41
PROVIDERS: PCP Family Medicine; Visit Provider Internal Medicine
DX: E88.01 Alpha-1-antitrypsin deficiency (principal); J43.9 Emphysema, unspecified
CPT/HCPCS: 96365; J0256

== ENCOUNTER 2024-11-08 07:35 | Outpatient (RCR) | payer OTHER, SELFPAY ==
[2024-10-18 12:45] VITALS: BP 146/84; PULSE 72; TEMP 36.4; O2SAT 18
[2024-10-18] MEDS: PROTEINASE INHIBITOR IV (13:19)
[2024-10-18] MEDS: ALPHA IV (13:19)
[2024-10-25 12:50] VITALS: BP 161/75; PULSE 72; TEMP 36.8; O2SAT 94
[2024-10-25] MEDS: PROTEINASE INHIBITOR IV (13:27)
[2024-10-25] MEDS: ALPHA IV (13:27)
[2024-11-01 12:47] VITALS: BP 153/72; TEMP 36.1; O2SAT 94
[2024-11-01] MEDS: PROTEINASE INHIBITOR IV (13:07)
[2024-11-01] MEDS: ALPHA IV (13:07)
[2024-11-08 12:35] VITALS: BP 166/72; PULSE 68; TEMP 36.6; O2SAT 95
[2024-11-08] MEDS: PROTEINASE INHIBITOR IV (13:02)
[2024-11-08] MEDS: ALPHA IV (13:02)
== END 2024-11-09 08:18 | disposition home or self-care (01) ==
LOC: INF 07:35
PROVIDERS: PCP Family Medicine; Visit Provider Internal Medicine
DX: E88.01 Alpha-1-antitrypsin deficiency (principal); J43.9 Emphysema, unspecified
CPT/HCPCS: 96365; J0256

== ENCOUNTER 2024-12-06 10:35 | Outpatient (RCR) | payer MEDICARE, OTHER, SELFPAY ==
[2024-11-15] MEDS: ALPHA IV (13:11)
[2024-11-15] MEDS: PROTEINASE INHIBITOR IV (13:11)
[2024-11-15 13:17] VITALS: BP 143/83; PULSE 68; TEMP 36.6; O2SAT 93
[2024-11-22 12:45] VITALS: BP 149/82; PULSE 71; TEMP 36.2; O2SAT 95
--- NOTE | 2024-11-22 13:20 | PC.NURSE ---
Prolastin infusion initiated at this time.
[2024-11-29 12:25] VITALS: BP 133/79; PULSE 75; TEMP 36.2; O2SAT 94
[2024-12-06 13:02] VITALS: BP 149/81; PULSE 71; TEMP 36.4; O2SAT 94
[2024-12-06] MEDS: ALPHA IV (13:31)
[2024-12-06] MEDS: PROTEINASE INHIBITOR IV (13:31)
== END 2024-12-11 23:59 | disposition home or self-care (01) ==
LOC: INF 10:35
PROVIDERS: PCP Family Medicine; Visit Provider Internal Medicine
DX: E88.01 Alpha-1-antitrypsin deficiency (principal); J43.9 Emphysema, unspecified
CPT/HCPCS: 96365; J0256

== ENCOUNTER 2025-01-10 07:28 | Outpatient (RCR) | payer MEDICARE, OTHER, SELFPAY ==
[2024-12-12 00:08] VITALS: BP 149/81; PULSE 71; TEMP 36.4; O2SAT 94
[2024-12-13 12:47] VITALS: BP 144/75; PULSE 81; TEMP 35.7; O2SAT 93
[2024-12-13] MEDS: ALPHA IV (13:10)
[2024-12-13] MEDS: PROTEINASE INHIBITOR IV (13:10)
[2024-12-20 12:50] VITALS: BP 131/74; PULSE 75; TEMP 36; O2SAT 92
[2024-12-20] MEDS: ALPHA IV (13:19)
[2024-12-20] MEDS: PROTEINASE INHIBITOR IV (13:19)
--- NOTE | 2024-12-20 13:22 | PC.NURSE ---
IV Prolastin initiated at this time. Pt. without c/o or needs.
[2024-12-27 12:50] VITALS: BP 146/54; PULSE 72; TEMP 36.6; O2SAT 94
[2024-12-27] MEDS: PROTEINASE INHIBITOR IV (13:15)
[2024-12-27] MEDS: ALPHA IV (13:15)
[2025-01-03 12:45] VITALS: BP 146/80; PULSE 70; TEMP 36.2; O2SAT 93
[2025-01-03] MEDS: ALPHA IV (13:07)
[2025-01-03] MEDS: PROTEINASE INHIBITOR IV (13:07)
[2025-01-10 12:50] VITALS: BP 134/73; PULSE 65; TEMP 35.9; O2SAT 94
[2025-01-10] MEDS: ALPHA IV (13:11)
[2025-01-10] MEDS: PROTEINASE INHIBITOR IV (13:11)
== END 2025-01-11 23:59 | disposition home or self-care (01) ==
LOC: INF 07:28
PROVIDERS: PCP Family Medicine; Visit Provider Internal Medicine
DX: E88.01 Alpha-1-antitrypsin deficiency (principal); J43.9 Emphysema, unspecified
CPT/HCPCS: 96365; J0256

== ENCOUNTER 2025-02-07 12:56 | Outpatient (RCR) | payer MEDICARE, OTHER, SELFPAY ==
[2025-01-17 12:50] VITALS: BP 144/77; PULSE 61; TEMP 36.4; O2SAT 94
[2025-01-17] MEDS: PROTEINASE INHIBITOR IV (13:20)
[2025-01-17] MEDS: ALPHA IV (13:20)
[2025-01-24 13:01] VITALS: BP 131/77; PULSE 66; TEMP 36.6; O2SAT 94
[2025-01-24] MEDS: ALPHA IV (13:11)
[2025-01-24] MEDS: PROTEINASE INHIBITOR IV (13:11)
[2025-01-31 12:40] VITALS: BP 151/78; PULSE 81; TEMP 36.6; O2SAT 98
[2025-01-31] MEDS: ALPHA IV (13:19)
[2025-01-31] MEDS: PROTEINASE INHIBITOR IV (13:19)
[2025-02-07 13:00] VITALS: BP 146/76; PULSE 70; TEMP 36.3; O2SAT 94
[2025-02-07] MEDS: ALPHA IV (13:27)
[2025-02-07] MEDS: PROTEINASE INHIBITOR IV (13:27)
== END 2025-02-11 23:59 | disposition home or self-care (01) ==
LOC: INF 12:56
PROVIDERS: PCP Family Medicine; Visit Provider Internal Medicine
DX: E88.01 Alpha-1-antitrypsin deficiency (principal); J43.9 Emphysema, unspecified
CPT/HCPCS: 96365; J0256

== ENCOUNTER 2025-03-07 12:46 | Outpatient (RCR) | payer MEDICARE, OTHER, SELFPAY ==
[2025-02-14 12:55] VITALS: BP 145/86; PULSE 71; TEMP 36.3; O2SAT 95
[2025-02-14] MEDS: PROTEINASE INHIBITOR IV (13:11)
[2025-02-14] MEDS: ALPHA IV (13:11)
[2025-02-21 13:06] VITALS: BP 138/70; PULSE 80; TEMP 36.3; O2SAT 94
[2025-02-21] MEDS: PROTEINASE INHIBITOR IV (13:26)
[2025-02-21] MEDS: ALPHA IV (13:26)
[2025-02-28 12:49] VITALS: BP 148/80; PULSE 70; TEMP 36.1; O2SAT 95
[2025-02-28] MEDS: ALPHA IV (13:23)
[2025-02-28] MEDS: PROTEINASE INHIBITOR IV (13:23)
[2025-03-07 12:49] VITALS: BP 154/76; PULSE 71; TEMP 36.2; O2SAT 94
[2025-03-07] MEDS: PROTEINASE INHIBITOR IV (13:23)
[2025-03-07] MEDS: ALPHA IV (13:23)
== END 2025-03-13 23:59 | disposition home or self-care (01) ==
LOC: INF 12:46
PROVIDERS: PCP Family Medicine; Visit Provider Internal Medicine
DX: J43.9 Emphysema, unspecified (principal); E88.01 Alpha-1-antitrypsin deficiency
CPT/HCPCS: 96365; J0256

== ENCOUNTER 2025-04-11 12:41 | Outpatient (RCR) | payer MEDICARE, OTHER, SELFPAY ==
[2025-03-15 12:50] VITALS: BP 153/91; PULSE 77; TEMP 36.3; O2SAT 92
[2025-03-15] MEDS: ALPHA IV (13:10)
[2025-03-15] MEDS: PROTEINASE INHIBITOR IV (13:10)
[2025-03-21 12:55] VITALS: BP 149/73; PULSE 74; TEMP 36; O2SAT 94
[2025-03-21] MEDS: PROTEINASE INHIBITOR IV (13:16)
[2025-03-21] MEDS: ALPHA IV (13:16)
[2025-03-28 12:58] VITALS: BP 144/74; PULSE 68; TEMP 36.4; O2SAT 94
[2025-03-28] MEDS: PROTEINASE INHIBITOR IV (13:26)
[2025-03-28] MEDS: ALPHA IV (13:26)
[2025-04-04 13:04] VITALS: BP 161/81; PULSE 79; TEMP 36.5; O2SAT 9
[2025-04-04] MEDS: ALPHA IV (13:29)
[2025-04-04] MEDS: PROTEINASE INHIBITOR IV (13:29)
[2025-04-11 12:40] VITALS: BP 142/89; PULSE 84; TEMP 36.5; O2SAT 95
[2025-04-11] MEDS: ALPHA-1-PROTEINASE INHIBITOR 6,222 MG in EMPTY BAG 0 ML 246 MG IV (13:13)
== END 2025-04-13 23:59 | disposition home or self-care (01) ==
LOC: INF 12:41
PROVIDERS: PCP Family Medicine; Visit Provider Internal Medicine
DX: J43.9 Emphysema, unspecified (principal); E88.01 Alpha-1-antitrypsin deficiency
CPT/HCPCS: 96365; J0256

== ENCOUNTER 2025-05-09 12:43 | Outpatient (RCR) | payer MEDICARE, OTHER, SELFPAY ==
[2025-04-18 12:50] VITALS: BP 136/79; PULSE 70; TEMP 36.4; O2SAT 95
[2025-04-18] MEDS: ALPHA-1-PROTEINASE INHIBITOR 6,222 MG in EMPTY BAG 0 ML 240 MG IV (13:15)
[2025-04-25 12:48] VITALS: BP 150/67; PULSE 69; TEMP 36.4; O2SAT 94
[2025-05-02 12:44] VITALS: BP 153/71; PULSE 70; TEMP 36.4; O2SAT 94
[2025-05-09 12:45] VITALS: BP 147/80; PULSE 73; TEMP 36.5; O2SAT 94
== END 2025-05-13 23:59 | disposition home or self-care (01) ==
LOC: INF 12:43
PROVIDERS: PCP Family Medicine; Visit Provider Internal Medicine
DX: E88.01 Alpha-1-antitrypsin deficiency (principal); J43.9 Emphysema, unspecified
CPT/HCPCS: 96365; J0256

== ENCOUNTER 2025-06-13 12:40 | Outpatient (RCR) | payer MEDICARE, OTHER, SELFPAY ==
[2025-01-12 00:09] VITALS: BP 134/73
[2025-05-16 09:04] VITALS: BP 143/86; PULSE 71; TEMP 36.2; O2SAT 93
[2025-05-23 12:42] VITALS: BP 137/78; PULSE 78; TEMP 36.3; O2SAT 93
[2025-05-30 12:35] VITALS: BP 154/79; PULSE 18; TEMP 36.2; O2SAT 97
[2025-06-05 12:44] VITALS: BP 165/78; PULSE 73; TEMP 36.3; O2SAT 94
[2025-06-13 12:43] VITALS: BP 152/92; PULSE 64; TEMP 36.4; O2SAT 92
== END 2025-06-13 23:59 | disposition home or self-care (01) ==
LOC: INF 12:40
PROVIDERS: PCP Family Medicine; Visit Provider Family Medicine
DX: E88.01 Alpha-1-antitrypsin deficiency (principal); J43.9 Emphysema, unspecified
CPT/HCPCS: 96365; J0256